=== PATIENT | female | born 1955 | race Caucasian/White ===

== ENCOUNTER → 2019-10-05 | Outpatient (CLI) | payer BC ==
--- NOTE | 2019-10-05 10:52 | ECHOF ---
Referral Reason:Coronary arteriosclerosis MEASUREMENTS -------- HEIGHT: 162.6 cm WEIGHT: 61.2 kg BP: RVIDd: 2.8 cm (< 3.3) IVSd: 1.3 cm (0.6 - 1.1) LVIDd: 4.1 cm (3.9 - 5.3) LVPWd: 1.5 cm (0.6 - 1.1) IVSs: 1.9 cm LVIDs: 3.0 cm LVPWs: 1.7 cm LAESV Index (A-L): 40.87 ml/m Ao Diam: 2.8 cm (2.0 - 3.7) AV Cusp: 1.5 cm (1.5 - 2.6) LA Diam: 4.0 cm (2.7 - 3.8) MV EXCURSION: 11.532 mm (> 18.000) MV EF SLOPE: 84 mm/s (70 - 150) EPSS: 0.3 cm MV E Messi: 0.75 m/s MV DecT: 163 ms MV A Messi: 0.85 m/s MV E/A Ratio: 0.89 RAP: 5.00 mmHg RVSP: 35.98 mmHg FINDINGS -------- Sinus rhythm with extra systolic beats. This was a technically adequate study. The left ventricular size is normal. There is moderate concentric left ventricular hypertrophy. O verall left ventricular systolic function is normal with, an EF between 55 - 60 %. Increased Lap Gr art II Diastolic Dysfunction. Septal wall motion is delayed and consistent with prior cardiac surge ry. The right ventricle is normal in size. LA is moderately dilated 34-39 ml/m2 The right atrium is mildly enlarged. Interatrial and interventricular septum intact. The aortic valve is trileaflet and appears structurally normal. There is no evidence of aortic regu rgitation. There is no evidence of aortic stenosis. Gaxy-co-unqcecyh mitral regurgitation is present. Mild tricuspid regurgitation present. There is mild pulmonary hypertension. The right ventricular systolic pressure, as measured by Doppler, is 35.98mmHg. There is no pulmonic regurgitation present. There is no pericardial effusion. CONCLUSIONS -------- 1. Sinus rhythm with extra systolic beats. 2. This was a technically adequate study. 3. The left ventricular size is normal. 4. There is moderate concentric left ventricular hypertrophy. 5. Overall left ventricular systolic function is normal with, an EF between 55 - 60 %. 6. Increased Lap Grade II Diastolic Dysfunction. 7. Septal wall motion is delayed and consistent with prior cardiac surgery. 8. The right ventricle is normal in size. 9. LA is moderately dilated 34-39 ml/m2 10. The right atrium is mildly enlarged. 11. Interatrial and interventricular septum intact. 12. The aortic valve is trileaflet and appears structurally normal. 13. There is no evidence of aortic regurgitation. 14. There is no evidence of aortic stenosis. 15. Ppfj-le-ouytjjxb mitral regurgitation is present. 16. Mild tricuspid regurgitation present. 17. There is mild pulmonary hypertension. 18. The right ventricular systolic pressure, as measured by Doppler, is 35.98mmHg. 19. There is no pulmonic regurgitation present. 20. There is no pericardial effusion. SECURITY SYSTEM INSTALLER: Angie Ruiz RDCS
== END | disposition home or self-care (01) ==
LOC: RADECHMAIN 08:00
PROVIDERS: ATTEND Internal Medicine
DX: I08.1 Rheumatic disorders of both mitral and tricuspid valves (principal); I27.20 Pulmonary hypertension, unspecified; I25.10 Atherosclerotic heart disease of native coronary artery without angina pectoris
CPT/HCPCS: 93306

== ENCOUNTER → 2019-10-29 | Outpatient (CLI) | payer BC ==
--- NOTE | 2019-10-29 08:58 | CT ---
EXAMINATION TYPE: CT chest w con DATE OF EXAM: 10/29/2019 COMPARISON: Chest x-ray October 14, 2019 HISTORY: Cough and congestion. Abnormal chest x-ray. CT DLP: 184 mGycm. Automated Exposure Control for Dose Reduction was Utilized. TECHNIQUE: CT scan of the thorax is performed following with IV Contrast, patient injected with 100 mL of Isovue 300. FINDINGS: LUNGS: Correlating with recent x-ray there are multiple scattered bilateral nodules and masses most p rominent involving the upper lungs. For reference to adjacent 7 mm nodules right upper lobe axial estephania ges 14 and 15 are present. There is additional 10 mm superior right lower lobe nodule axial image 29. There are slightly larger lesions in the left upper lung. 4) 2.2 x 1.6 cm medial left upper lobe nod ule axial image 19. There is elongated oval-shaped lower dense lesion along the major fissure could r eflect trapped fluid or low dense mass There is some linear scarring left lung base. No pneumothorax bilaterally. There is mass effect and narrowing of left upper lobe bronchus coronal image 46 MEDIASTINUM: There are abnormal lymph nodes. There is abnormal subcarinal 3.1 x 2.1 cm lymph node axi al image 29. There is abnormal heterogeneous partially calcified prevascular mass or adenopathy axial image 22 measuring 4.9 x 3.3 cm. There are abnormal left hilar lymph nodes causing mass effect or na rrowing of the right central pulmonary arteries. No cardiomegaly or pericardial effusion is seen. Po st-CABG changes with mediastinal clips and sternal wires. OTHER: Slight scoliotic curvature with mild multilevel spurring. Suspicious 2.1 x 1.4 cm left adrenal anterior inferior mass axial image 58. Colonic interposition anterior to liver. Liver low density carroll ggesting fatty infiltration. IMPRESSION: Scattered bilateral upper lung nodules with abnormal thoracic adenopathy. High-grade/meta static neoplasm is suspected. Clinical correlation advised. Consider PET CT follow-up.
== END | disposition home or self-care (01) ==
LOC: RADCTMAIN 08:19
PROVIDERS: ATTEND Internal Medicine
DX: R91.8 Other nonspecific abnormal finding of lung field (principal); R59.9 Enlarged lymph nodes, unspecified
CPT/HCPCS: 71260; Q9967

== ENCOUNTER → 2019-11-05 | Outpatient (CLI) | payer BC ==
--- NOTE | 2019-11-07 09:33 | PE ---
EXAMINATION TYPE: PET CT fusion skull to thigh DATE OF EXAM: 11/05/2019 COMPARISON: Chest CT October 29, 2019 HISTORY: Abdominal CT, solitary pulmonary nodule. TECHNIQUE: Following the intravenous administration of 8.62 mCi of F-18 FDG, whole body images are p erformed from the skull base to the midthigh. Images are reviewed on the computer in the coronal, ax ial, and sagittal planes. Reconstructed rotating images are created on independent workstation and r eviewed on the computer. A noncontrast CT is performed in conjunction with the PET scan. SCAN: Initial Scan FINDINGS: SKULL BASE AND NECK: No areas of suspicious hypermetabolic uptake. CHEST, MEDIASTINUM, AND HILAR REGION: Correlating with recent CT there are scattered hypermetabolic n odule bilaterally. Persistent spiculated 2.2 x 1.5 cm posterior left upper lobe nodule axial image 65 has a max SUV of 9.76. There is hypermetabolic 9 mm superior left lower lobe nodule axial image 80 w ith max SUV of 3.49. The largest hypodense area along fissure left mid lung shows no suspicious hyper metabolic uptake. There is hypermetabolic 10 mm superior right lower lobe nodule axial image 73 with max SUV of 3.49. Abnormal thoracic adenopathy is present. There is hypermetabolic enlarged subcarinal lymph node measu ring 3.5 x 1.9 cm axial image 80 with max SUV of 9.91. Abnormal posterior left suprahilar adenopathy axial image 76 has Max SUV of 8.22. Abnormal pericarinal lymph node measures 1.5 x 1.3 cm axial image 72 with max SUV of 4.63. Confluent abnormal partially calcified prevascular mass axial image 69 joann ures roughly 4.5 x 3.9 cm with Max SUV of 10.62. ABDOMEN AND PELVIS: Abnormal hypermetabolic anterior-inferior left adrenal mass measuring 1.9 x 1.4 c m axial image 122 with max SUV of 10.28. OSSEOUS STRUCTURES: No suspicious hypermetabolic uptake. OTHER CT: Post CABG changes with mediastinal clips and sternal wires is present. Moderate to severe calcified plaque of the aorta extends into branch vessels. Scattered diverticula t hroughout the left and sigmoid colon. Scattered pelvic phleboliths. Exaggerated kyphosis cervical thoracic spine. IMPRESSION: Confirmation of abnormal nodules more numerous in left lung versus right lung with abnorm al thoracic adenopathy and left adrenal involvement. High-grade primary lung neoplasm is favored.
== END ==
LOC: RADPETMAIN 08:33
PROVIDERS: ATTEND Internal Medicine
DX: R91.8 Other nonspecific abnormal finding of lung field (principal); R59.0 Localized enlarged lymph nodes
CPT/HCPCS: 78815; A9552

== ENCOUNTER 2019-11-11 09:44 | Day surgery (SDC) | payer BC ==
[2019-11-10 14:13] VITALS: BMI 24.3
[~2019-11-11 09:44] MED LIST: ALBUTEROL NEB (CONC) 2.5 MG/0.5 ML INHALATION ONE; DEXAMETHASONE SOD PHOSPHATE 10 MG/ML 1 ML VIAL IV ONE; HYDROmorphone 0.5 MG/0.5 ML SYRINGE IVP PRN; LACTATED RINGERS 1,000 ML IV SCH; LIDOCAINE 2% (PF) 20 MG/ML 5 ML VIAL INHALATION ONE; LIDOCAINE VISCOUS 300 MG/15 ML CUP MUCOUS MEM ONE; MIDAZOLAM 2 MG/2 ML VIAL IV PRN; ONDANSETRON 4 MG/2 ML VIAL IVP ONE; SCOPOLAMINE 1.5MG/72HR PATCH TRANSDERM ONE; SODIUM CHLORIDE 0.9% 1,000 ML IV SCH
[2019-11-11] MEDS ORDERED: MIDAZOLAM 2 MG/2 ML VIAL IV ONE (11:15)
[2019-11-11] MEDS ORDERED: MIDAZOLAM 2 MG/2 ML VIAL ONE (12:16)
[2019-11-11] MEDS ORDERED: fentaNYL (PF) 50 MCG/ML 2 ML AMP ONE (12:16)
[2019-11-11] MEDS ORDERED: LIDOCAINE 1% INJ 10MG/ML (20 ML MDV) ONE (12:16)
[2019-11-11] MEDS ORDERED: PROPOFOL 10 MG/ML 20 ML VIAL IV ONE (12:16)
[2019-11-11] MEDS ORDERED: NEOSTIGMINE 1 MG/ML 10 ML VIAL ONE (12:16)
[2019-11-11] MEDS ORDERED: GLYCOPYRROLATE 0.2 MG/ML 2 ML VIAL ONE (12:16)
[2019-11-11] MEDS ORDERED: ROCURONIUM BROMIDE 10 MG/ML 10 ML VIAL IV ONE (12:16)
[2019-11-11 14:00] VITALS: TEMP 97.5
--- NOTE | 2019-11-11 14:25 | CT ---
EXAMINATION TYPE: CT Chest geovanna Marx Protocol DATE OF EXAM: 11/11/2019 COMPARISON: PET/CT 11/05/2019 HISTORY: Pre Procedural. CT DLP: 571 mGycm Automated exposure control for dose reduction was used. FINDINGS: Multiple pulmonary nodules are present. A 2.3 x 3.0 cm lobular nodules at the left suprahilar region. Series 8 image 21. A 1.2 cm nodules within the posterior right midlung. Multiple additional smaller nodules are present upper lung galicia within the periphery greater in number on the left than the rig ht. Thyroid within the [id number] is unremarkable. Vascular calcifications within the aorta. Large per iaortic mass which contains calcification is in the superior mediastinum adjacent to the aortic arch. Study is without contrast clear delineation between the mass in the vessel was not possible on this exam. Limited CT sections are obtained through the upper abdomen. There is dense calcification within the a susi. This may cause stenosis near the level of the superior mesenteric artery. Note is made of some coronary artery calcification. Pretracheal lymph node is enlarged at 1.4 cm transverse. IMPRESSION: LUNG MASS ADJACENT TO THE AORTIC ARCH. 2. LEFT SUPRAHILAR MASS DISCUSSED ABOVE. MULTIPLE ADDITIONAL SMALLER NODULES ARE PRESENT BILATERALLY GREATER INTO THE UPPER LUNG GALICIA AND ON THE LEFT. 3. CALCIFICATION WITHIN THE AORTA. THIS MAY BE CAUSING STENOSIS NEAR THE LEVEL OF THE SUPERIOR MESENT ANASTASIA ARTERY.
--- NOTE | 2019-11-11 14:37 | XR ---
EXAMINATION TYPE: XR chest 1V portable DATE OF EXAM: 11/11/2019 COMPARISON: 11/11/2019 CT INDICATION: Bronchial navigation TECHNIQUE: Single frontal view of the chest is obtained. FINDINGS: The heart size is normal. The pulmonary vasculature is normal. There is mild infiltrate in the left suprahilar region. Pulmonary nodules are not as well identified. No pneumothorax is evident. Sternotomy wires are in the midline. Heart size is normal. Vasculature i s normal. IMPRESSION: 1. No pneumothorax post bronchoscopy. 2. Mild left upper lobe infiltrate. 3. Multiple bilateral pulmonary nodules not as well identified as on the CT exam.
[2019-11-11 15:21] VITALS: BP 155/72; PULSE 103; RESP 16
[2019-11-11 16:51] LABS: Appearance,BF Cloudy; Color,BF Colorless; Nucleated Cells, Body Fluid 255 /uL; RBC, Body Fluid 0 /uL
[2019-11-11 17:15] LABS: Mononuclear WBC,Body Fluid 90 %; Polynuclear WBC,Body Fluid 10 %; Total Cells Counted,Body Fluid 100
--- NOTE | 2019-11-11 20:51 | PCN ---
PROCEDURE NOTE OPERATIVE REPORT: Navigational bronchoscopy, multiple Lord needle aspiration of subcarinal nodes, multiple transbronchial biopsies of two left upper lobe target lesions, bronchoalveolar lavage of the left upper lobe. PREOPERATIVE DIAGNOSES: Lung masses, possible underlying malignancy/bronchogenic carcinoma. POSTOPERATIVE DIAGNOSES: Lung masses, possible underlying malignancy/bronchogenic carcinoma. ANESTHESIA: General anesthesia done in the operating room #1. PROCEDURE: The patient had a CT of the chest using then [employer] protocol. The patient was sent to the operating room with a in place. Then, we have reviewed the CT of the chest on the [employer] system, and mapping of the airways was done. Multiple target lesions were marked including 2 left upper lobe nodules and an area of subcarinal lymph nodes. Then the patient was intubated prior to the procedure. She was placed on mechanical ventilation. After adequate anesthesia, the bronchoscope was inserted down the endotracheal tube, calibration was done. Using the navigational protocol, multiple transbronchial biopsies were done of 2 target lesions in the left upper lobe. Then, lavage of the left upper lobe was also done. Multiple Lord and needle aspirations were performed by Dr. Qureshi and in the subcarinal area and anterior subcarinal area, and these with reviewed by the pathologist. I attempted to reach the left lower lobe target lesion, however, it was not accessible. Multiple specimens were sent including Lord needle aspirates from the subcarinal nodes and anterior carinal nodes, and multiple transbronchial biopsies of two left upper lobe lesion and lavage from the left upper lobe was also sent for cytology. Procedure was well tolerated, no evidence of any immediate complication. Chest x-ray was ordered postoperatively to rule out any pneumothorax, and it was unremarkable. MMODL / IJN: [id number] /
== END 2019-11-11 15:26 | disposition home or self-care (01) ==
LOC: ORWHC2ENDO 09:44
PROVIDERS: ATTEND Internal Medicine
DX: J98.4 Other disorders of lung (principal); R59.0 Localized enlarged lymph nodes; J44.9 Chronic obstructive pulmonary disease, unspecified; I25.10 Atherosclerotic heart disease of native coronary artery without angina pectoris; I10 Essential (primary) hypertension; K21.9 Gastro-esophageal reflux disease without esophagitis; I08.1 Rheumatic disorders of both mitral and tricuspid valves; I27.20 Pulmonary hypertension, unspecified; I25.2 Old myocardial infarction; F17.210 Nicotine dependence, cigarettes, uncomplicated; Z79.899 Other long term (current) drug therapy; Z95.5 Presence of coronary angioplasty implant and graft; Z98.890 Other specified postprocedural states; Z95.1 Presence of aortocoronary bypass graft; Z82.49 Family history of ischemic heart disease and other diseases of the circulatory system; Z84.89 Family history of other specified conditions
CPT/HCPCS: 94640; 87798 ×3; 87529; 87634; 87206; 87496; 87498; 88108; 88305; 88173; 89050; 87252; 87502; 87070; 87205; 87116; 87102; 71045; 71250; 31628; 31624; 31629; 31627; J2250; J1100; J2710; J2405; J2001 ×2; J3010; J2704

== ENCOUNTER → 2019-11-28 | Day surgery (SDC) | payer BC ==
[~2019-11-28] MED LIST changes: +DEXAMETHASONE SOD PHOS (MDV) 100 MG/10 ML VIAL ONE; -DEXAMETHASONE SOD PHOSPHATE 10 MG/ML 1 ML VIAL IV ONE; +GLYCOPYRROLATE 0.2 MG/ML 2 ML VIAL ONE; -HYDROmorphone 0.5 MG/0.5 ML SYRINGE IVP PRN; +KETAMINE 10 MG/ML 20 ML VIAL ONE; +LACTATED RINGERS 1,000 ML IV ONE; -LACTATED RINGERS 1,000 ML IV SCH; +LIDOCAINE 1% 20 ML VIAL (10MG/ML) FOR IV START INTRADERMA ONE; +LIDOCAINE 1% INJ 10MG/ML (20 ML MDV) ONE; +METOPROLOL TARTRATE 5 MG/5 ML VIAL IVP ONE; -MIDAZOLAM 2 MG/2 ML VIAL IV PRN; +MIDAZOLAM 2 MG/2 ML VIAL IVP ONE; +MIDAZOLAM 2 MG/2 ML VIAL ONE; -ONDANSETRON 4 MG/2 ML VIAL IVP ONE; +PHENYLEPHRINE-0.9% NACL SYG 1 MG/10 ML SYRINGE ONE; +PROPOFOL 10 MG/ML 20 ML VIAL IV ONE; -SCOPOLAMINE 1.5MG/72HR PATCH TRANSDERM ONE; +SUCCINYLCHOLINE CHLORIDE 100 MG/5 ML SYR IV ONE; +fentaNYL (PF) 50 MCG/ML 2 ML AMP ONE
--- NOTE | 2019-11-28 13:06 | CT ---
EXAMINATION TYPE: CT Chest geovanna Marx Protocol DATE OF EXAM: 11/28/2019 COMPARISON: PET/CT [address] October 29, 2019. PET/CT November 05, 2019 HISTORY: Navigational Bronch CT DLP: 559 mGycm Automated exposure control for dose reduction was used. FINDINGS: CT of the chest is performed without contrast. Exam is for bronchoscopy planning and not for diagnost ic purposes. Scattered nodules throughout both lungs greater in the upper lungs is redemonstrated. Po st-CABG changes with1 mediastinal clips and sternal wires again seen. Partially calcified prevascular mass extending into left hilum again seen. Diffuse fatty infiltration of liver incidentally noted. IMPRESSION: As above.
[2019-11-28 14:42] VITALS: RESP 18; TEMP 97.4
--- NOTE | 2019-11-28 15:11 | XR ---
EXAMINATION TYPE: XR chest 1V portable DATE OF EXAM: 11/28/2019 COMPARISON: Chest x-ray November 11, 2009. CT earlier today and older CTs and PET CTs. HISTORY: Post bronchoscopy TECHNIQUE: Single frontal view of the chest is obtained. FINDINGS: There is mild chronic emphysematous change with scattered bilateral nodules. Overlying ronit rnal wires and mediastinal clips redemonstrated. The cardiac silhouette size remains enlarged. No pne umothorax noted bilaterally. Left suprahilar mass or neoplasm redemonstrated. The osseous structures remain demineralized. IMPRESSION: No pneumothorax after bronchoscopy.
[2019-11-28 16:01] VITALS: BP 177/83; PULSE 87
--- NOTE | 2019-12-05 14:20 | P.PCN ---
Date of Procedure: 11/28/19 Preoperative Diagnosis: Bilateral lung masses with a large left upper lobe mass and scattered bilateral pulmonary nodules and mediastinal lymphadenopathy Postoperative Diagnosis: Same Procedure(s) Performed: Navigational bronchoscopy, transbronchial needle aspirate of the paratracheal and subcarinal lymph nodes, transbronchial biopsy of the left upper lobe mass, transbronchial brushing of the left upper lobe mass Anesthesia: KATHLEENA Surgeon: Abdoulaye Qureshi Medical Practice Administrator #1: Melissa Smith Estimated Blood Loss (ml): 0 Pathology: other Condition: stable Disposition: same day Operative Findings: This is a navigation bronchoscopy that was done in the operating room. The patient had a computed tomography scan of the chest using the [employer] protocol. All of these images uploaded into the computer system with the left upper lobe mass and the scattered pulmonary nodules in the mediastinal lymph nodes were all identified. The target lesions were met specifically the right paratracheal and subcarinal lymph node in addition to the left upper lobe mass. All of these mapping was uploaded into the navigational tower The patient was brought into the operating room where conscious sedation was applied and under conscious sedation and airway inspection was done. The visualized airways and posterior oropharynx, larynx, epiglottis, arytenoids and the vocal cords. All of the structures were within normal limits. A total of 2 mL of 1% lidocaine was applied to the vocal cords and following that the bronchoscope was advanced to the upper trachea. Examination of the tracheal bronchial tree was done. Visualized airways included the right upper lobe bronc hus, right middle lobe bronchus, right lower lobe bronchus, left upper lobe bronchus and left lower lobe bronchus. All of the airways were patent. At the level of the left upper lobe bronchus, the apical posterior subsegment was compressed extrinsically. No endobronchial tumors or lesions identified. The appropriate calibration was done using the primary josé miguel and the secondary josé miguel on the left as reference points. Following that, used a navigational 19- gauge needle to sample the right paratracheal lymph node with 2 passes were obtained. I also performed a transbronchial aspiration of the subcarinal lymph nodes. Both of those were done on the navigational guidance. Following that, the patient was intubated by anesthesia. After the intubation process was completed, the flexible bronchoscope was reinserted andand directed to the left upper lobe. Using navigational guidance, transbronchial biopsies of the left upper lobe mass was done using the apical posterior segment of the left upper lobe. Several biopsies were obtained. I also utilizes a triple brush to biopsy the left upper lobe mass. The samples were found to be adequate. The bronchoscope was removed. Subsequently the patient was extubated and transferred to recovery. Chest x-ray will be done. Further recommended a surgical follow based on the results of the biopsy. The procedure was done without any complications.
== END ==
LOC: ORWHC2ENDO 10:46
PROVIDERS: ATTEND Internal Medicine Critical Care Medicine
DX: C7A.1 Malignant poorly differentiated neuroendocrine tumors (principal); R59.0 Localized enlarged lymph nodes; J44.9 Chronic obstructive pulmonary disease, unspecified; I25.2 Old myocardial infarction; F17.210 Nicotine dependence, cigarettes, uncomplicated; Z79.899 Other long term (current) drug therapy; Z95.1 Presence of aortocoronary bypass graft; Z95.5 Presence of coronary angioplasty implant and graft
CPT/HCPCS: 31628; 88104; 88305; 88173; 88342; 88341; 71045; 71250; 31629; 31623; 31627; J2250; J2001; J3010; J1100; J2370; J0330; J2704; 31625

== ENCOUNTER → 2019-12-07 | Outpatient (CLI) | payer BC ==
--- NOTE | 2019-12-07 13:56 | MR ---
"EXAMINATION TYPE: MR brain wo/w con DATE OF EXAM: 12/07/2019 1:38 PM COMPARISON: NONE HISTORY: LUng Cancer / Headaches CONTRAST: Patient received 6 mL intravenous Gadavist gadolinium contrast. Multiplanar and multispin-echo imaging of the brain was performed . Pre and post contrast enhanced i mages are obtained. Several ring-enhancing lesions are identified. Dominant ring-enhancing lesion is seen within the righ t midbrain extending into the right infra thalamic region measuring 1.4 x 1.3 x 1.3 cm. There is mild mass effect upon the third ventricle from right to left. No significant surrounding edema at this ti me. There are several additional tiny ring-enhancing lesions with 2 tiny adjacent lesions measuring a total of 7 mm within the left centrum semioval anteriorly. There is a 5 mm lesion noted within the j uxtacortical high left frontal lobe. Suspect additional tiny 4 mm lesion left cerebellar hemisphere s uperiorly. The ventricles, basal cisterns and sulci overlying the cerebral convexities are mildly enlarged. There is evidence of mild to moderate periventricular white matter ischemic demyelination. Remote deep white matter insults are also noted. No acute edema is seen on diffusion weighted imaging. There is no evidence for midline shift or mass effect. Acute intracranial hemorrhage or extra-axial collection is not evident. The paranasal sinuses and mastoid air cells are well-aerated. IMPRESSION: 1. 5 enhancing metastatic lesions as described above. No evidence for a significant surrounding vasog enic edema. Mild mass effect upon the third ventricle from right to left. No herniation seen. 2. Age-related atrophic and chronic small vessel ischemic change. A Yellow level critical message alert has been initiated for Alexandre Portillo MD via the [employer] | Critical Results System on 12/07/2019 1:53 PM. This message alert has been sent to Alexandre Portillo MD via the preferences provided by the clinician for the receipt of Radiology Critical Findings. Mess age ID [id number]."
== END | disposition home or self-care (01) ==
LOC: RADMRIMAIN 12:48
PROVIDERS: ATTEND Internal Medicine Hematology & Oncology
DX: C79.31 Secondary malignant neoplasm of brain (principal); C34.90 Malignant neoplasm of unspecified part of unspecified bronchus or lung; I67.82 Cerebral ischemia; G31.9 Degenerative disease of nervous system, unspecified
CPT/HCPCS: 70553; A9585

== ENCOUNTER 2019-12-14 14:57 | Emergency (ER) | payer BC ==
[2019-12-14 15:11] VITALS: TEMP 98.2
[2019-12-14 15:41] VITALS: RESP 16
--- NOTE | 2019-12-14 15:59 | XR ---
EXAMINATION TYPE: XR chest 2V DATE OF EXAM: 12/14/2019 COMPARISON: Prior chest x-ray dated 11/28/2019 HISTORY: Dysrhythmia, lung cancer TECHNIQUE: Frontal and lateral views of the chest are obtained on 3 images. FINDINGS: Prominent lung lines suggest underlying COPD. Patient is post median sternotomy. Multiple nodular densities are present within the left greater than right upper lobe as on prior exam. Heart r emains enlarged. There are overlying cardiac leads. No evident pneumothorax or pleural effusion. Larg e aorticopulmonary node is present. IMPRESSION: Findings compatible with patient's history of lung carcinoma. Cardiomegaly. Postop kojo hawkins.
[2019-12-14 16:04] LABS: Basophils # (A) 0.2 k/uL (0-0.2); Basophils % (A) 2 %; Eosinophils # (A) 0.1 k/uL (0-0.7); Eosinophils % (A) 1 %; HGB 15.7 gm/dL (11.4-16.0); Lymphocytes # (A) 0.7 k/uL (1.0-4.8); Lymphocytes % (A) 8 %; MCH 32.3 pg (25.0-35.0); MCHC 32.7 g/dL (31.0-37.0); MCV 98.7 fL (80.0-100.0); Mean Platelet Volume 8.2; Monocytes # (A) 0.3 k/uL (0-1.0); Monocytes % (A) 4 %; Neutrophils # (A) 7.7 k/uL (1.3-7.7); Neutrophils % (A) 84 %; Platelet Count 224 k/uL (150-450); RBC 4.87 m/uL (3.80-5.40); RDW 12.2 % (11.5-15.5); WBC 9.1 k/uL (3.8-10.6)
--- NOTE | 2019-12-14 16:06 | ED ---
General Adult HPI - General Chief complaint: Arrhythmia/Palpitations Stated complaint: Swollen legs Time Seen by Provider: 12/14/19 15:14 Source: patient, RN notes reviewed, old records reviewed Mode of arrival: wheelchair Limitations: no limitations - History of Present Illness Initial comments: 64-year-old female with metastatic lung cancer presenting from the radiation center for evaluation of lower extremity swelling and arrhythmia. Patient was n oted to have an irregular heartbeat and sent in for evaluation. She states she's had lower extremity swelling for the past several days. She is on radiation for multiple brain lesions. She is scheduled to start chemotherapy within the next week. She denies chest pain or dyspnea. She states she has bilateral leg swelling. She denies abdominal pain, denies nausea vomiting. She really has no complaints. - Related Data Home Medications Medication Instructions Recorded Confirmed Albuterol Sulfate [Proair Hfa] 1 - 2 puff INHALATION Q6HR PRN 11/10/19 12/14/19 Aspirin 81 mg PO DAILY 12/14/19 12/14/19 Dexamethasone [Decadron] 4 mg PO DAILY 12/14/19 12/14/19 Omeprazole 20 mg PO DAILY 12/14/19 12/14/19 amLODIPine BESYLATE 5 mg PO DAILY 12/14/19 12/14/19 Previous Rx's Medication Instructions Recorded Furosemide [Lasix] 20 mg PO DAILY #3 tab 12/14/19 Allergies Allergy/AdvReac Type Severity Reaction Status Date / Time No Known Allergies Allergy Verified 12/14/19 15:11 Review of Systems ROS Statement: Those systems with pertinent positive or pertinent negative responses have been documented in the HPI. ROS Other: All systems not noted in ROS Statement are negative. Past Medical History Past Medical History: COPD Additional Past Medical History / Comment(s): lost voice in April 2019 with continuing cough History of Any Multi-Drug Resistant Organisms: None Reported Past Surgical History: Coronary Bypass/CABG, Heart Catheterization With Stent, Orthopedic Surgery Additional Past Surgical History / Comment(s): cabg 04/2004, carpal tunnel ana,hip surgery repair nerve , rt rotator cuff repair Past Anesthesia/Blood Transfusion Reactions: No Reported Reaction, Family History of Problems w/ Anesthesia Additional Past Anesthesia/Blood Transfusion Reaction / Comment(s): mother takes long time to come out of anesthesia Date of Last Stent Placement:: 08/05 Past Psychological History: No Psychological Hx Reported Smoking Status: Current every day smoker Past Alcohol Use History: Daily Past Drug Use History: None Reported - Past Family History Mother Family Medical History: No Reported History General Exam Limitations: no limitations General appearance: alert, cachectic Head exam: Present: atraumatic, normocephalic Eye exam: Present: normal appearance, PERRL ENT exam: Present: normal exam Neck exam: Present: normal inspection. Absent: tenderness, meningismus Respiratory exam: Present: normal lung sounds bilaterally. Absent: respiratory distress, wheezes Cardiovascular Exam: Present: regular rate, normal rhythm GI/Abdominal exam: Present: soft. Absent: distended, tenderness, guarding Extremities exam: Present: pedal edema. Absent: calf tenderness Back exam: Present: normal inspection Neurological exam: Present: alert, oriented X3, CN II-XII intact. Absent: motor sensory deficit Psychiatric exam: Present: normal affect, normal mood Skin exam: Present: warm, dry, intact, erythema. Absent: cyanosis, diaphoretic Course Vital Signs 12/14/19 12/14/19 15:07 15:34 Temperature 98.2 F Pulse Rate 91 76 Respiratory 20 16 Rate Blood Pressure 165/74 132/78 O2 Sat by Pulse 99 99 Oximetry EKG Findings - EKG Comments: EKG Findings:: EKG: Sinus rhythm with PACs, rate of 89, NV interval 138, QRS duration 84, QTC 503, no ST segment elevation Medical Decision Making - Medical Decision Making 64-year-old female presenting for evaluation of palpitations, and lower extrem ity edema. Active metastatic lung cancer. Chest x-ray performed, shows findings consistent with carcinoma and cardiomegaly. She has a EKG showing sinus rhythm with sinus arrhythmia. Ultrasound performed of bilateral lower extremities which is negative for DVT. She has a mildly elevated BNP at 2400. Normal electrolytes. Negative troponin. Patient very eager for discharge, she does not want to stay under any circumstances. She will follow-up with her primary care physician. She is prescribed a short course of Lasix for bilateral lower extremity swelling. - Lab Data Result diagrams: 12/14/19 15:40 12/14/19 15:40 Lab Results 12/14/19 12/14/19 12/14/19 Range/Units 15:40 15:40 15:40 WBC 9.1 (3.8-10.6) k/uL RBC 4.87 (3.80-5.40) m/uL Hgb 15.7 (11.4-16.0) gm/dL Hct 48.0 H (34.0-46.0) % MCV 98.7 (80.0-100.0) fL MCH 32.3 (25.0-35.0) pg MCHC 32.7 (31.0-37.0) g/dL RDW 12.2 (11.5-15.5) % Plt Count 224 (150-450) k/uL Neutrophils % 84 % Lymphocytes % 8 % Monocytes % 4 % Eosinophils % 1 % Basophils % 2 % Neutrophils # 7.7 (1.3-7.7) k/uL Lymphocytes # 0.7 L (1.0-4.8) k/uL Monocytes # 0.3 (0-1.0) k/uL Eosinophils # 0.1 (0-0.7) k/uL Basophils # 0.2 (0-0.2) k/uL PT (9.0-12.0) sec INR (<1.2) APTT (22.0-30.0) sec Sodium 134 L (137-145) mmol/L Potassium 5.3 H (3.5-5.1) mmol/L Chloride 98 (98-107) mmol/L Carbon Dioxide 30 (22-30) mmol/L Anion Gap 6 mmol/L BUN 14 (7-17) mg/dL Creatinine 0.69 (0.52-1.04) mg/dL Est GFR (CKD-EPI)AfAm >90 (>60 ml/min/1.73 sqM) Est GFR (CKD-EPI)NonAf >90 (>60 ml/min/1.73 sqM) Glucose 123 H (74-99) mg/dL Calcium 8.9 (8.4-10.2) mg/dL Magnesium 2.2 (1.6-2.3) mg/dL Total Bilirubin 0.7 (0.2-1.3) mg/dL AST 100 H (14-36) U/L ALT 95 H (4-34) U/L Alkaline Phosphatase 90 (38-126) U/L Troponin I (0.000-0.034) ng/mL NT-Pro-B Natriuret Pep 2440 pg/mL Total Protein 7.1 (6.3-8.2) g/dL Albumin 4.0 (3.5-5.0) g/dL 12/14/19 12/14/19 Range/Units 15:40 15:40 WBC (3.8-10.6) k/uL RBC (3.80-5.40) m/uL Hgb (11.4-16.0) gm/dL Hct (34.0-46.0) % MCV (80.0-100.0) fL MCH (25.0-35.0) pg MCHC (31.0-37.0) g/dL RDW (11.5-15.5) % Plt Count (150-450) k/uL Neutrophils % % Lymphocytes % % Monocytes % % Eosinophils % % Basophils % % Neutrophils # (1.3-7.7) k/uL Lymphocytes # (1.0-4.8) k/uL Monocytes # (0-1.0) k/uL Eosinophils # (0-0.7) k/uL Basophils # (0-0.2) k/uL PT 9.9 (9.0-12.0) sec INR 1.0 (<1.2) APTT 21.5 L (22.0-30.0) sec Sodium (137-145) mmol/L Potassium (3.5-5.1) mmol/L Chloride (98-107) mmol/L Carbon Dioxide (22-30) mmol/L Anion Gap mmol/L BUN (7-17) mg/dL Creatinine (0.52-1.04) mg/dL Est GFR (CKD-EPI)AfAm (>60 ml/min/1.73 sqM) Est GFR (CKD-EPI)NonAf (>60 ml/min/1.73 sqM) Glucose (74-99) mg/dL Calcium (8.4-10.2) mg/dL Magnesium (1.6-2.3) mg/dL Total Bilirubin (0.2-1.3) mg/dL AST (14-36) U/L ALT (4-34) U/L Alkaline Phosphatase (38-126) U/L Troponin I <0.012 (0.000-0.034) ng/mL NT-Pro-B Natriuret Pep pg/mL Total Protein (6.3-8.2) g/dL Albumin (3.5-5.0) g/dL Disposition Clinical Impression: Cavitating mass in left upper lung lobe, Palpitations, Peripheral edema Disposition: HOME SELF-CARE Condition: Fair Instructions (If sedation given, give patient instructions): Heart Palpitations (ED) Prescriptions: Furosemide [Lasix] 20 mg PO DAILY #3 tab Is patient prescribed a controlled substance at d/c from ED?: No Referrals: Paul Guo DO [Primary Care Provider] - 1-2 days Time of Disposition: 17:03
[2019-12-14 16:14] LABS: ALT 95 U/L (4-34); AST 100 U/L (14-36); African American GFR (CKD) >90 (>60 ml/min/1.73 sqM); Alkaline Phosphatase 90 U/L (38-126); Anion Gap 6 mmol/L; Blood Urea Nitrogen 14 mg/dL (7-17); Calcium 8.9 mg/dL (8.4-10.2); Carbon Dioxide 30 mmol/L (22-30); Chloride 98 mmol/L (98-107); Glucose 123 mg/dL (74-99); Magnesium 2.2 mg/dL (1.6-2.3); Non-African American GFR(CKD) >90 (>60 ml/min/1.73 sqM); Potassium 5.3 mmol/L (3.5-5.1); Sodium 134 mmol/L (137-145); Total Bilirubin 0.7 mg/dL (0.2-1.3); Total Protein 7.1 g/dL (6.3-8.2)
[2019-12-14 16:20] LABS: Prothrombin Time 9.9 sec (9.0-12.0)
[2019-12-14 16:23] LABS: Partial Thromboplastin Time 21.5 sec (22.0-30.0)
--- NOTE | 2019-12-14 16:56 | US ---
EXAMINATION TYPE: US venous doppler duplex LE DATE OF EXAM: 12/14/2019 4:46 PM COMPARISON: NONE CLINICAL HISTORY: DVT. Edema bilateral legs, worse on the right SIDE PERFORMED: bilateral TECHNIQUE: The lower extremity deep venous system is examined utilizing real time linear array sonog gavin with graded compression, doppler sonography and color-flow sonography. VESSELS IMAGED: External Iliac Vein (EIV) Common Femoral Vein Deep Femoral Vein Greater Saphenous Vein * Femoral Vein Popliteal Vein Small Saphenous Vein * Proximal Calf Veins (* superficial vessels) Right Leg: No evidence of DVT Left Leg: No evidence of DVT IMPRESSION: 1. Bilateral lower extremity ultrasound negative for deep venous thrombosis.
[2019-12-14] MEDS ORDERED: FUROSEMIDE 10 MG/ML 2 ML VIAL IV STA (17:01)
[2019-12-14 17:37] VITALS: BP 136/76; PULSE 86
== END 2019-12-14 17:35 | disposition home or self-care (01) ==
LOC: EC 14:57
DX: C34.90 Malignant neoplasm of unspecified part of unspecified bronchus or lung (principal); R00.2 Palpitations; R60.0 Localized edema; I51.7 Cardiomegaly; I49.8 Other specified cardiac arrhythmias; R79.89 Other specified abnormal findings of blood chemistry; L53.9 Erythematous condition, unspecified; J44.9 Chronic obstructive pulmonary disease, unspecified; F17.200 Nicotine dependence, unspecified, uncomplicated; Z79.82 Long term (current) use of aspirin; Z79.899 Other long term (current) drug therapy; Z95.1 Presence of aortocoronary bypass graft; Z95.5 Presence of coronary angioplasty implant and graft
CPT/HCPCS: 36415; 93005; 83880; 80053; 83735; 84484; 85025; 85610; 85730; 71046; 93970; 99285; 96374; J1940

== ENCOUNTER 2019-12-16 06:36 | Day surgery (SDC) | payer BC ==
[2019-12-14 11:26] VITALS: BMI 22.3
[~2019-12-16 06:36] MED LIST changes: -ALBUTEROL NEB (CONC) 2.5 MG/0.5 ML INHALATION ONE; -DEXAMETHASONE SOD PHOS (MDV) 100 MG/10 ML VIAL ONE; -GLYCOPYRROLATE 0.2 MG/ML 2 ML VIAL ONE; +HEPARIN SODIUM,PORCINE 5,000 UNIT/ML 1 ML VIAL SQ ONE; +HYDROmorphone 0.5 MG/0.5 ML SYRINGE IVP PRN; -KETAMINE 10 MG/ML 20 ML VIAL ONE; -LACTATED RINGERS 1,000 ML IV ONE; +LACTATED RINGERS 1,000 ML IV SCH; -LIDOCAINE 1% 20 ML VIAL (10MG/ML) FOR IV START INTRADERMA ONE; +LIDOCAINE 1% 20 ML VIAL (10MG/ML) FOR IV START INTRADERMA PRN; -LIDOCAINE 1% INJ 10MG/ML (20 ML MDV) ONE; -LIDOCAINE 2% (PF) 20 MG/ML 5 ML VIAL INHALATION ONE; -LIDOCAINE VISCOUS 300 MG/15 ML CUP MUCOUS MEM ONE; -METOPROLOL TARTRATE 5 MG/5 ML VIAL IVP ONE; -MIDAZOLAM 2 MG/2 ML VIAL IVP ONE; -MIDAZOLAM 2 MG/2 ML VIAL ONE; -PHENYLEPHRINE-0.9% NACL SYG 1 MG/10 ML SYRINGE ONE; -PROPOFOL 10 MG/ML 20 ML VIAL IV ONE; +Pre Op ABX Message 1 EACH MISC MISCELLANE ONE; -SODIUM CHLORIDE 0.9% 1,000 ML IV SCH; -SUCCINYLCHOLINE CHLORIDE 100 MG/5 ML SYR IV ONE; -fentaNYL (PF) 50 MCG/ML 2 ML AMP ONE
[2019-12-16 06:57] VITALS: TEMP 98.2
[2019-12-16 07:08] LABS: Glucose,Whole Blood 87 mg/dL (75-99)
[2019-12-16] MEDS ORDERED: ONDANSETRON 4 MG/2 ML VIAL IVP ONE (07:13)
[2019-12-16] MEDS ORDERED: DEXAMETHASONE SOD PHOS (MDV) 100 MG/10 ML VIAL IV ONE (07:14)
[2019-12-16] MEDS ORDERED: MIDAZOLAM 2 MG/2 ML VIAL IV ONE (07:18)
--- NOTE | 2019-12-16 07:44 | P.GSHP ---
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 Here today for Port-A-Cath placement. Starting chemotherapy quite soon. Past Medical History Past Medical History: COPD Additional Past Medical History / Comment(s): lost voice in April 2019 with continuing cough History of Any Multi-Drug Resistant Organisms: None Reported Past Surgical History: Coronary Bypass/CABG, Heart Catheterization With Stent, Orthopedic Surgery Additional Past Surgical History / Comment(s): cabg 04/2004, carpal tunnel ana,hip surgery repair nerve , rt rotator cuff repair Past Anesthesia/Blood Transfusion Reactions: No Reported Reaction, Family History of Problems w/ Anesthesia Additional Past Anesthesia/Blood Transfusion Reaction / Comment(s): mother takes long time to come out of anesthesia Date of Last Stent Placement:: 08/05 Past Psychological History: No Psychological Hx Reported Smoking Status: Current every day smoker Past Alcohol Use History: Daily Past Drug Use History: None Reported - Past Family History Mother Family Medical History: No Reported History Medications and Allergies Home Medications Medication Instructions Recorded Confirmed Type Albuterol Sulfate [Proair Hfa] 1 - 2 puff INHALATION Q6HR PRN 11/10/19 12/14/19 History Aspirin 81 mg PO DAILY 12/14/19 12/14/19 History Dexamethasone [Decadron] 4 mg PO DAILY 12/14/19 12/14/19 History Furosemide [Lasix] 20 mg PO DAILY #3 tab 12/14/19 Rx Omeprazole 20 mg PO DAILY 12/14/19 12/14/19 History amLODIPine BESYLATE 5 mg PO DAILY 12/14/19 12/14/19 History Allergies Allergy/AdvReac Type Severity Reaction Status Date / Time No Known Allergies Allergy Verified 12/16/19 07:07 Surgical - Exam Vital Signs Temp Pulse Resp BP Pulse Ox 98.2 F 70 16 202/93 100 12/16/19 06:55 12/16/19 06:55 12/16/19 06:55 12/16/19 06:55 12/16/19 06:55 Physical exam: General: Well-developed, well-nourished HEENT: Normocephalic, sclerae nonicteric Abdomen: Nontender, nondistended Extremities: No edema Neuro: Alert and oriented Assessment and Plan (1) Lung cancer Narrative/Plan: Will proceed with Port-A-Cath placement at this time. Risks of bleeding, infection, DVT, pneumothorax, catheter malfunction, anesthesia related complications were discussed. The patient understands and wishes to proceed. Current Visit: Yes Status: Acute Code(s): C34.90 - MALIGNANT NEOPLASM OF UNSP PART OF UNSP BRONCHUS OR LUNG SNOMED Code(s): 087736737
[2019-12-16] MEDS ORDERED: MIDAZOLAM 2 MG/2 ML VIAL ONE (07:47)
[2019-12-16] MEDS ORDERED: PROPOFOL 10 MG/ML 20 ML VIAL IV ONE (07:47)
[2019-12-16] MEDS ORDERED: KETAMINE 10 MG/ML 20 ML VIAL ONE (07:47)
[2019-12-16] MEDS ORDERED: GLYCOPYRROLATE 0.2 MG/ML 2 ML VIAL ONE (07:47)
[2019-12-16] MEDS ORDERED: fentaNYL (PF) 50 MCG/ML 2 ML AMP ONE (07:47)
[2019-12-16] MEDS ORDERED: ceFAZolin 1,000 MG VIAL ONE (07:47)
[2019-12-16] MEDS ORDERED: SODIUM CHLORIDE 0.9% 100 ML with ceFAZolin 2,000 MG IV ONE ×2 (08:13)
[2019-12-16] MEDS ORDERED: LIDOCAINE 1% (PF) 10 MG/ML (30 ML SDV) SQ ONE (08:15)
[2019-12-16] MEDS ORDERED: HYDROcodone/APAP 5-325MG 1 EACH TAB PO PRN (08:43)
[2019-12-16] MEDS ORDERED: NALOXONE 0.4 MG/ML 1 ML VIAL IV PRN (08:43)
--- NOTE | 2019-12-16 08:45 | P.OP ---
Date of Procedure: 12/16/19 Procedure(s) Performed: PREOPERATIVE DIAGNOSIS: Lung cancer POSTOPERATIVE DIAGNOSIS: Same PROCEDURE: Port-A-Cath placement SURGEON: Ilsa EBL: Minimal ANESTHESIA: Sedation COMPLICATIONS: None OPERATIVE PROCEDURE: Patient was brought and placed on the operative table in the supine position. The patient was sedated per anesthesia that time. The chest and neck were prepped and draped in usual sterile fashion. The ultrasound probe was used to identify the location of the right internal jugular vein. The skin was localized with lidocaine. The Seldinger needle was advanced into the IJ under ultrasound guidance. The wire was advanced through the needle under fluoroscopic guidance into the superior vena cava. A port pocket was created in the right infraclavicular location. The catheter was tunneled from the wire entrance site to the port pocket. The port was then connected to the catheter. The dilator introducer was threaded over the guidewire. The guidewire and dilator were then removed. The catheter was advanced through the introducer and introducer was then removed. The tip was seen to be in the right atrial junction. Port was flushed with both saline and a Hep-Lock solution. There was good flow both in and out of the port. The port was sutured in underlying tissues using 3-0 silk sutures. The subcutaneous tissues were reapproximated using 3-0 Vicryl sutures and the skin at both locations using 4-0 Monocryl sutures. Skin glue and sterile dressings then applied. DISPOSITION: Stable to recovery room
--- NOTE | 2019-12-16 09:44 | XR ---
EXAMINATION TYPE: XR chest 1V portable DATE OF EXAM: 12/16/2019 COMPARISON: 12/14/2019 HISTORY: Port-A-Cath insertion. Evaluate for pneumothorax. TECHNIQUE: Single frontal view of the chest is obtained. FINDINGS: There are multiple old healed right-sided rib fractures. Port-A-Cath has been placed with its distal tip terminating in the distal superior vena cava. No postprocedural pneumothorax is seen. Post CABG changes the chest are noted. Multiple nodular densities are seen within the left lung and t o a lesser degree in the right lung in this patient with known bilateral pulmonary nodules. No new fo donis consolidation, pleural effusion or pulmonary vascular congestion. IMPRESSION: Right-sided Port-A-Cath insertion with no pars procedural pneumothorax. Known bilateral pulmonary nodules. No pulmonary vascular congestion.
--- NOTE | 2019-12-16 09:51 | FL ---
Fluoroscopy INDICATION: Pain FINDINGS: Fluoroscopy time: 48 seconds. Images obtained: 1. IMPRESSIONS: 1. Documentation of fluoroscopy.
[2019-12-16 10:14] VITALS: BP 185/93; PULSE 71; RESP 20
== END 2019-12-16 10:12 | disposition home or self-care (01) ==
LOC: OR 06:36
PROVIDERS: ATTEND Surgery
DX: C34.92 Malignant neoplasm of unspecified part of left bronchus or lung (principal); J44.9 Chronic obstructive pulmonary disease, unspecified; F17.210 Nicotine dependence, cigarettes, uncomplicated; K21.9 Gastro-esophageal reflux disease without esophagitis; Z87.09 Personal history of other diseases of the respiratory system; Z95.1 Presence of aortocoronary bypass graft; Z95.5 Presence of coronary angioplasty implant and graft; Z98.890 Other specified postprocedural states; Z86.69 Personal history of other diseases of the nervous system and sense organs; Z87.39 Personal history of other diseases of the musculoskeletal system and connective tissue; Z79.899 Other long term (current) drug therapy; Z79.82 Long term (current) use of aspirin; Z79.52 Long term (current) use of systemic steroids; Z84.89 Family history of other specified conditions
CPT/HCPCS: 77001; 71045; 36561; C1788; J2250; J2405; J0690; J2001; J3010; J1100; J2704

== ENCOUNTER → 2020-03-20 | Outpatient (CLI) | payer BC ==
--- NOTE | 2020-03-20 10:53 | CT ---
EXAMINATION TYPE: CT chest w con DATE OF EXAM: 03/20/2020 COMPARISON: 10/29/2019 HISTORY: follow up lung cancer CT DLP: 302 mGycm, Automated exposure control for dose reduction was used. CONTRAST: Performed injected with 80 mL of Isovue 300. TECHNIQUE: Axial images were obtained at 5 mm thick sections. Reconstructed images are reviewed on [employer] computer in the coronal plane. FINDINGS: Portion of the thyroid visualized is normal. There are several small nodules in the upper lung galicia. The largest measures 0.6 cm. These nodules are present previously and is diminished in size over the interval. Additionally, some larger nodules have resolved and previous nodules at the lower lung galicia have resolved. No new or increasing size d nodules are evident. No enlarged mediastinal or hilar adenopathy is evident. The ascending aorta diameter at the level o f the main pulmonary artery is 3.2 cm. The main pulmonary artery diameter at the bifurcation is 3.0 cm. Coronary artery calcification is present. Limited CT sections are obtained through the upper abdomen. Small hiatal hernia is present. There is some mild fullness of the left adrenal gland measuring 1.1 cm in transverse dimension. This is smalle r than comparison. IMPRESSIONS: 1. Diminished size with some resolution of some nodules within the lung galicia. No new or increasing nodule size is evident. 2. Diminished size of the left adrenal gland.
== END | disposition home or self-care (01) ==
LOC: RADCTMAIN 08:38
PROVIDERS: ATTEND Internal Medicine Hematology & Oncology
DX: C34.92 Malignant neoplasm of unspecified part of left bronchus or lung (principal)
CPT/HCPCS: 82565; 84520; 71260; 36415; Q9967

== ENCOUNTER 2020-03-24 14:30 | Inpatient (IN) | payer BC ==
[2020-03-24] MEDS ORDERED: PANTOPRAZOLE 40 MG/10 ML VIAL IVP STA (14:57)
--- NOTE | 2020-03-24 15:38 | ED ---
General Adult HPI - General Chief complaint: GI Bleed Stated complaint: Vomiting Time Seen by Provider: 03/24/20 14:36 Source: patient, EMS, RN notes reviewed, old records reviewed Mode of arrival: EMS Limitations: no limitations - History of Present Illness Initial comments: 65-year-old female patient past history significant for stage IV lung cancer not currently on any sort of chemotherapy presents to ED for chief complaint of nausea and vomiting which started this morning. She states that she had approximately 10 episodes of nausea and vomiting between 8 AM and 12 noon. She states that the emesis was very dark however no aneesh bright red blood was noted. Since then she states that she is not having any current nausea pain and shortness of breath. Denies any rectal bleeding, denies any use of blood thinners. Systemic: Pt denies fatigue, fever/chills, rash. Pt denies weakness, night sweats, weight loss. Neuro: Pt denies headache, visual disturbances, syncope or pre-syncope. HEENT: Pt denies ocular discharge or irritation, otalgia, rhinorrhea, pharyngitis or notable lymphadenopathy. Cardiopulmonary: Pt denies chest pain, SOB, heart palpitations, dyspnea on exertion. Abdominal/GI: Pt denies abdominal pain. : Pt denies dysuria, burning w/ urination, frequency/urgency. Denies new onset urinary or bowel incontinence. MSK: Pt denies myalgia, loss of strength or function in extremities. Neuro: Pt denies new onset weakness, paresthesias. - Related Data Home Medications Medication Instructions Recorded Confirmed Aspirin 81 mg PO DAILY 12/14/19 03/24/20 Dexamethasone [Decadron] 4 mg PO BID 12/14/19 03/24/20 Acetaminophen/Diphenhydramine 1 tab PO HS 03/24/20 03/24/20 [Tylenol Pm Ex-Strength Caplet] Dronabinol 5 mg PO HS 03/24/20 03/24/20 Lisinopril [Zestril] 10 mg PO DAILY 03/24/20 03/24/20 Prochlorperazine [Compazine] 10 mg PO Q6H PRN 03/24/20 03/24/20 Tetracycline HCl 500 mg PO Q12H 03/24/20 03/24/20 Allergies Allergy/AdvReac Type Severity Reaction Status Date / Time No Known Allergies Allergy Verified 03/24/20 17:02 Review of Systems ROS Statement: Those systems with pertinent positive or pertinent negative responses have been documented in the HPI. ROS Other: All systems not noted in ROS Statement are negative. Past Medical History Past Medical History: Cancer, COPD Additional Past Medical History / Comment(s): lost voice in April 2019 with continuing cough, Stage 4 lung CA. History of Any Multi-Drug Resistant Organisms: None Reported Past Surgical History: Coronary Bypass/CABG, Heart Catheterization With Stent, Orthopedic Surgery Additional Past Surgical History / Comment(s): cabg 04/2004, carpal tunnel ana,hip surgery repair nerve , rt rotator cuff repair Past Anesthesia/Blood Transfusion Reactions: No Reported Reaction, Family History of Problems w/ Anesthesia Additional Past Anesthesia/Blood Transfusion Reaction / Comment(s): mother takes long time to come out of anesthesia Date of Last Stent Placement:: 08/05 Past Psychological History: No Psychological Hx Reported Smoking Status: Former smoker - Past Family History Mother Family Medical History: No Reported History General Exam - General Exam Comments Initial Comments: Constitutional: NAD, AOX3, Pt has pleasant affect. HEENT: NC/AT, trachea midline, neck supple, no lymphadenopathy. Posterior pharynx non erythematous, without exudates. External ears appear normal, without discharge. Mucous membranes moist. Eyes PERRLA, EOM intact. There is no scleral icterus. No pallor noted. Cardiopulmonary: RRR, no murmurs, rubs or gallops, no JVD noted. Lungs CTAB in anterior and posterior galicia. No peripheral edema. Abdominal exam: Abdomen soft and non-distended. Abdomen non-tender to palpation in all 4 quadrants. Bowel sounds active in LLQ. No hepatosplenomegaly. No ecchymosis. Fecal occult blood was performed chaperoned by JOSE MIGUEL Galvez. Neuro: CN II-XII grossly intact. No nuchal rigidity. No raccon eyes, no tello sign, no hemotympanum. No cervical spinal tenderness. MSK: No posterior calf tenderness bilaterally, homans sign negative bilaterally. Limitations: no limitations Course Vital Signs 03/24/20 14:33 Temperature 97.7 F Pulse Rate 101 H Respiratory 16 Rate Blood Pressure 156/67 O2 Sat by Pulse 100 Oximetry Medical Decision Making - Medical Decision Making 65-year-old female patient past history significant for stage IV lung cancer not currently on any sort of chemotherapy presents to ED for chief complaint of nausea and vomiting which started this morning. She states that she had approximately 10 episodes of nausea and vomiting between 8 AM and 12 noon. She states that the emesis was very dark however no aneesh bright red blood was noted. Since then she states that she is not having any current nausea pain and shortness of breath. Denies any rectal bleeding, denies any use of blood thinners. Patient vital signs displayed a heart rate of 101. Physical exam did display mild pallor. Laboratory investigations were obtained White blood cell count of 0.1. Hemoglobin of 6.4, platelets of 11. Troponin is negative. Patient does have acute T-wave inversions on EKG no chest pain or shortness of breath. Patient had recent bleeding, pancytopenia will not be administered aspirin. No active bleeding at this time. Was administered Protonix. Chest x- ray displayed no acute cardiopulmonary process. Patient transfused 1 unit of platelets and hemoglobin will be admitted to the ICU. She last had chemotherapy last week. Case discused and pt seen by Dr. Lara - Lab Data Result diagrams: 03/24/20 15:38 03/24/20 15:38 Lab Results 03/24/20 03/24/20 03/24/20 Range/Units 15:38 15:38 15:38 WBC 0.1 L* (3.8-10.6) k/uL RBC 2.01 L (3.80-5.40) m/uL Hgb 6.4 L* (11.4-16.0) gm/dL Hct 18.7 L* (34.0-46.0) % MCV 93.2 (80.0-100.0) fL MCH 31.9 (25.0-35.0) pg MCHC 34.2 (31.0-37.0) g/dL RDW 17.7 H (11.5-15.5) % Plt Count 11 L* (150-450) k/uL Manual Slide Review Performed Anisocytosis Slight PT 10.4 (9.0-12.0) sec INR 1.0 (<1.2) APTT 22.4 (22.0-30.0) sec Sodium 132 L (137-145) mmol/L Potassium 3.5 (3.5-5.1) mmol/L Chloride 98 (98-107) mmol/L Carbon Dioxide 23 (22-30) mmol/L Anion Gap 11 mmol/L BUN 19 H (7-17) mg/dL Creatinine 1.02 (0.52-1.04) mg/dL Est GFR (CKD-EPI)AfAm 68 (>60 ml/min/1.73 sqM) Est GFR (CKD-EPI)NonAf 59 (>60 ml/min/1.73 sqM) Glucose 93 (74-99) mg/dL Plasma Lactic Acid Vladimir (0.7-2.0) mmol/L Calcium 8.7 (8.4-10.2) mg/dL Total Bilirubin 1.2 (0.2-1.3) mg/dL AST 21 (14-36) U/L ALT 23 (4-34) U/L Alkaline Phosphatase 78 (38-126) U/L Troponin I (0.000-0.034) ng/mL Total Protein 6.3 (6.3-8.2) g/dL Albumin 3.4 L (3.5-5.0) g/dL Lipase (23-300) U/L Blood Type Blood Type Recheck Bld Type Recheck Status Antibody Screen Spec Expiration Date 03/24/20 03/24/20 03/24/20 Range/Units 15:38 15:38 15:38 WBC (3.8-10.6) k/uL RBC (3.80-5.40) m/uL Hgb (11.4-16.0) gm/dL Hct (34.0-46.0) % MCV (80.0-100.0) fL MCH (25.0-35.0) pg MCHC (31.0-37.0) g/dL RDW (11.5-15.5) % Plt Count (150-450) k/uL Manual Slide Review Anisocytosis PT (9.0-12.0) sec INR (<1.2) APTT (22.0-30.0) sec Sodium (137-145) mmol/L Potassium (3.5-5.1) mmol/L Chloride (98-107) mmol/L Carbon Dioxide (22-30) mmol/L Anion Gap mmol/L BUN (7-17) mg/dL Creatinine (0.52-1.04) mg/dL Est GFR (CKD-EPI)AfAm (>60 ml/min/1.73 sqM) Est GFR (CKD-EPI)NonAf (>60 ml/min/1.73 sqM) Glucose (74-99) mg/dL Plasma Lactic Acid Vladimir 1.1 (0.7-2.0) mmol/L Calcium (8.4-10.2) mg/dL Total Bilirubin (0.2-1.3) mg/dL AST (14-36) U/L ALT (4-34) U/L Alkaline Phosphatase (38-126) U/L Troponin I <0.012 (0.000-0.034) ng/mL Total Protein (6.3-8.2) g/dL Albumin (3.5-5.0) g/dL Lipase (23-300) U/L Blood Type O Positive Blood Type Recheck O Pos Bld Type Recheck Status No Antibody Screen NEGATIVE Spec Expiration Date 03/27/2020 - 233703/24/20 Range/Units 15:38 WBC (3.8-10.6) k/uL RBC (3.80-5.40) m/uL Hgb (11.4-16.0) gm/dL Hct (34.0-46.0) % MCV (80.0-100.0) fL MCH (25.0-35.0) pg MCHC (31.0-37.0) g/dL RDW (11.5-15.5) % Plt Count (150-450) k/uL Manual Slide Review Anisocytosis PT (9.0-12.0) sec INR (<1.2) APTT (22.0-30.0) sec Sodium (137-145) mmol/L Potassium (3.5-5.1) mmol/L Chloride (98-107) mmol/L Carbon Dioxide (22-30) mmol/L Anion Gap mmol/L BUN (7-17) mg/dL Creatinine (0.52-1.04) mg/dL Est GFR (CKD-EPI)AfAm (>60 ml/min/1.73 sqM) Est GFR (CKD-EPI)NonAf (>60 ml/min/1.73 sqM) Glucose (74-99) mg/dL Plasma Lactic Acid Vladimir (0.7-2.0) mmol/L Calcium (8.4-10.2) mg/dL Total Bilirubin (0.2-1.3) mg/dL AST (14-36) U/L ALT (4-34) U/L Alkaline Phosphatase (38-126) U/L Troponin I (0.000-0.034) ng/mL Total Protein (6.3-8.2) g/dL Albumin (3.5-5.0) g/dL Lipase 19 L (23-300) U/L Blood Type Blood Type Recheck Bld Type Recheck Status Antibody Screen Spec Expiration Date - EKG Data -: EKG Interpreted by Me (and Dr. Lara ) EKG Comments: Ventricular rate 98,. For 144, QRS 88, QT/QTC 364/464. Normal sensory rhythm, ST-T wave abnormalities. T-wave inversions noted in V1 through V6. Disposition Clinical Impression: Hematemesis, Pancytopenia Disposition: ADMITTED IP TO THIS [facility] Condition: Serious Is patient prescribed a controlled substance at d/c from ED?: No Referrals: Paul Guo DO [Primary Care Provider] - 1-2 days
[2020-03-24 16:14] LABS: Anisocytosis Slight; MCH 31.9 pg (25.0-35.0); MCHC 34.2 g/dL (31.0-37.0); MCV 93.2 fL (80.0-100.0); Mean Platelet Volume 10.4; Partial Thromboplastin Time 22.4 sec (22.0-30.0); Prothrombin Time 10.4 sec (9.0-12.0); RBC 2.01 m/uL (3.80-5.40); RDW 17.7 % (11.5-15.5)
[2020-03-24 16:21] LABS: Albumin 3.4 g/dL (3.5-5.0); Calcium 8.7 mg/dL (8.4-10.2); Potassium 3.5 mmol/L (3.5-5.1); Total Bilirubin 1.2 mg/dL (0.2-1.3); Total Protein 6.3 g/dL (6.3-8.2)
[2020-03-24 16:25] LABS: HCT 18.7 % (34.0-46.0); HGB 6.4 gm/dL (11.4-16.0)
--- NOTE | 2020-03-24 16:34 | XR ---
EXAMINATION TYPE: XR chest 2V DATE OF EXAM: 03/24/2020 COMPARISON: 12/16/2019 and 12/14/2019. HISTORY: Chest pain TECHNIQUE: Frontal and lateral views of the chest are obtained. FINDINGS: Right-sided Mediport and post CABG changes are again seen of the chest. Cardia mediastinal silhouette size is stable. There is diffuse and mild osseous demineralization. No new focal consolid ation, pleural effusion or pneumothorax. Upper and mid thoracic compression deformities again noted. The small pulmonary nodule seen on the prior CT are better visualized on CT and should be followed wi th CT rather than radiograph. IMPRESSION: No acute cardiopulmonary process.
[2020-03-24 16:43] LABS: WBC 0.1 k/uL (3.8-10.6)
[2020-03-24 16:45] LABS: Platelet Count 11 k/uL (150-450)
[2020-03-24] MEDS ORDERED: NALOXONE 0.4 MG/ML 1 ML VIAL IV PRN (17:02)
[2020-03-24 20:08] LABS: Glucose,Whole Blood 92 mg/dL (75-99)
[2020-03-24] MEDS ORDERED: IPRATROPIUM-ALBUTEROL 3 ML NEB INHALATION PRN (20:16)
[2020-03-24] MEDS ORDERED: PROCHLORPERAZINE 10 MG TAB PO PRN (20:16)
[2020-03-24] MEDS ORDERED: LORazepam 0.5 MG TAB PO PRN (20:17)
--- NOTE | 2020-03-24 22:31 | HP ---
HISTORY AND PHYSICAL CHIEF COMPLAINT: GI bleed and shortness of breath. HISTORY OF PRESENT ILLNESS: This 65-year-old woman with a past medical history of stage IV lung cancer, not on treatment currently, COPD, history of CAD, CABG stent being followed by Dr. Guo in the outpatient setting was complaining of increasing shortness of breath. The patient also had nausea, vomiting, and started this morning and approximately after 10 episodes between 8 and 12, the patient had episodes of very dark material and patient came to [facility] and admitted for further evaluation and treatment. The patient appears to be significantly gurgly even the chest x-ray did not show much of abnormality. Patient had significant pancytopenia, hemoglobin 6.4. The patient admitted to ICU for further evaluation and treatment at this time for evaluation of upper GI bleed. Gastroenterology and pulmonology consultation also has been sought. There is no history of any fever, rigor or chills. No history of any contact with Covid 19 and the Covid 19 test has been sought at this time. PAST MEDICAL HISTORY: History of COPD, history of stage IV lung cancer, history of CAD, CABG, history of dysphonia. MEDICATIONS: 1. Compazine 10 mg q.6 p.r.n. 2. Aspirin 81 mg daily. 3. Tylenol p.r.n. 4. Dexamethasone 4 mg p.o. b.i.d. 5. Tetracycline 500 mg p.o. b.i.d. 6. Zestril 10 mg p.o. 7. Dronabinol 5 mg q.h.s. ALLERGIES: None. FAMILY HISTORY: No history of heart disease or strokes in the family. No history of cancer in the family. SOCIAL HISTORY: Previous history of smoking. Occasional alcohol intake. REVIEW OF SYSTEMS: ENT: No diminished vision. No diminished hearing. CARDIOVASCULAR is no angina. RESPIRATORY: As mentioned earlier. GI: As mentioned earlier. no dysuria. CENTRAL NERVOUS SYSTEM: No numbness or weakness. ALLERGY/IMMUNOLOGY: No asthma or hayfever. MUSCULOSKELETAL as mentioned earlier. HEMATOLOGY/ONCOLOGY mentioned earlier. ENDOCRINE: No history of diabetes or hypothyroidism. CONSTITUTIONAL: As mentioned earlier. DERMATOLOGY: Negative. RHEUMATOLOGY negative. PSYCHIATRY as mentioned earlier. PHYSICAL EXAMINATION: Alert and oriented x2. Pulse 110, blood pressure 143/79, respiration 18, temperature 100.3, pulse ox 98% on room air. HEENT: Conjunctivae normal. Oral mucosa moist. NECK is no jugular venous distention. No carotid bruit. No lymph node enlargement. CARDIOVASCULAR system: S1, S2 muffled. No S3, no S4. RESPIRATORY: Breath sounds diminished in the bases. Bilateral scattered rhonchi and crackles. Expiratory wheezing also heard. ABDOMEN: Soft, nontender. Obese. No mass palpable. LEGS: No edema. No swelling. NERVOUS SYSTEM: Higher functions as mentioned earlier. Moves all 4 limbs. No focal motor or sensory deficits. LYMPHATICS: No lymph nodes palpable in the neck, axillae or groin. SKIN: No ulcer, rash or bleeding. JOINTS: No active deforming arthropathy. LABS: At this time show WBC 0.1, hemoglobin 6.4, platelets 11, sodium 132, potassium 3.5. ASSESSMENT: 1. Acute upper gastrointestinal bleeding with acute blood loss anemia. Rule out peptic ulcer disease. 2. Severe pancytopenia. 3. Acute blood loss anemia. 4. Possibly neutropenic sepsis. 5. Chronic obstructive pulmonary disease acute exacerbation. 6. Diffuse ST-T changes in the EKG. 7. Stage IV lung cancer. 8. Hyponatremia. 9. Change in mental status, metabolic encephalopathy, multifactorial. 10.History of dysphonia. 11.History of coronary artery disease, coronary artery bypass grafting/stent. 12.History of degenerative joint disease. 13.Remote history of nicotine dependence. 14.History of ETOH. 15.FULL CODE. RECOMMENDATIONS AND DISCUSSION: This 65-year-old woman who presented with multiple complex medical issues, at this time I recommend continue the current medications, continue with symptomatic treatment. We will transfuse the patient at least 1 unit at this time, transfer the patient to ICU. Consult Gastroenterology, Dr. Ramos for ICU management. Otherwise, I would also recommend empiric antibiotics for neutropenic sepsis and as well as bronchodilators and IV steroids as well. We will hold off the antiplatelet agents because of the evidence of gastrointestinal bleeding. We will monitor the hemoglobin serially. Overall prognosis extremely guarded because of multiple complex medical issues and Hematology/ Oncology also will be consulted as well. EKG also showed some ST-T changes significance of which is unknown at this time. Troponins are normal. I would recommend a 2D echo with Doppler and cardiology consultation as well. Once again the prognosis is guarded because of multiple complex medical issues and a copy of this dictation will be forwarded to Dr. Guo who is the primary physician. MMODL / IJN: [id number] /
[2020-03-24 23:09] LABS: Anisocytosis Slight; HCT 25.3 % (34.0-46.0); Hypochromasia Slight; MCH 31.5 pg (25.0-35.0); MCHC 33.7 g/dL (31.0-37.0); MCV 93.3 fL (80.0-100.0); Mean Platelet Volume 17.2; RBC 2.72 m/uL (3.80-5.40); RDW 17.7 % (11.5-15.5)
[2020-03-24 23:15] LABS: HGB 8.5 gm/dL (11.4-16.0); Platelet Count 20 k/uL (150-450); WBC 0.2 k/uL (3.8-10.6)
[2020-03-25] MEDS: ACETAMINOPHEN TAB 500 MG TAB PO SCH ×2 (00:10→21:23)
[2020-03-25] MEDS: diphenhydrAMINE 25 MG CAP PO SCH ×2 (00:10→21:24)
[2020-03-25] MEDS: CEFEPIME 2 GM in SODIUM CHLORIDE 0.9% 100 ML IVPB SCH ×4 (00:13→21:24)
[2020-03-25 00:18] LABS: Glucose,Whole Blood 101 mg/dL (75-99)
[2020-03-25] MEDS: INSULIN ASPART (NovoLOG) 100 UNIT/ML VIAL SQ SCH ×5 (00:18→21:30)
[2020-03-25] MEDS: methylPREDNISolone SOD SUCCI 125 MG/2 ML VIAL IV SCH ×6 (01:10→23:43)
[2020-03-25 05:04] LABS: Potassium 3.1 mmol/L (3.5-5.1)
[2020-03-25] MEDS ORDERED: Potassium Replacement Protocol 1 EACH MISC MISCELLANE PRN (05:41)
[2020-03-25] MEDS: POTASSIUM CHLORIDE 20 MEQ in WATER FOR INJECTION 1 100ML.BAG IVPB SCH ×2 (05:58→08:05)
[2020-03-25 06:42] LABS: Anisocytosis Slight; MCH 30.9 pg (25.0-35.0); MCHC 34.3 g/dL (31.0-37.0); MCV 90.2 fL (80.0-100.0); Mean Platelet Volume 9.1; Platelet Count 27 k/uL (150-450); RBC 2.22 m/uL (3.80-5.40)
[2020-03-25 06:46] LABS: HGB 6.9 gm/dL (11.4-16.0); WBC 0.1 k/uL (3.8-10.6)
[2020-03-25 07:01] LABS: Glucose,Whole Blood 94 mg/dL (75-99)
[2020-03-25] MEDS: IPRATROPIUM-ALBUTEROL 3 ML NEB INHALATION SCH ×3 (08:06→20:26)
--- NOTE | 2020-03-25 09:53 | CONS ---
CONSULTATION DATE OF DICTATION: March 25, 2020. REQUESTING PHYSICIAN: Dr. Guo. REASON FOR CONSULTATION: Coffee-ground emesis. HISTORY OF PRESENT ILLNESS: The patient is a 65-year-old pleasant white female with history of stage IV lung cancer, presently undergoing chemotherapy, finished her 9th cycle last . Came in the emergency room complaining of shortness of breath, low-grade fever associated with multiple episodes of nausea and vomiting that started yesterday morning. She had about 10 or 12 episodes followed by coffee-grounds emesis. She was noted to be somewhat orthostatic and had a hemoglobin of 6.4 and was admitted to the intensive care unit. She is also noted to have severe pancytopenia. As per the nursing staff, she had couple of episodes of coffee-ground emesis last night and no further episodes of bleeding. In fact, she has no nausea, vomiting, and no melena. She received one unit of PRBC transfusion. Hemoglobin is 8.3 g/dL. She denies any abdominal pain. No prior history of peptic ulcer disease. She denies any recent NSAID use. COVID-19 was done and is still pending at the time of this dictation. PAST MEDICAL HISTORY: Stage IV lung cancer. Currently undergoing chemotherapy, last dose was last . History of coronary artery disease, hypertension, COPD. MEDICATIONS: At home include Compazine, aspirin, Tylenol, dexamethasone, tetracycline, Zestril, and . ALLERGIES: None. SOCIAL HISTORY: Previous history of smoking. No alcohol use. FAMILY HISTORY: Mother had coronary artery disease. PAST SURGICAL HISTORY: Cardiac catheterization, CABG, carpal tunnel, rotator cuff repair. PHYSICAL EXAMINATION: She appears comfortable no apparent distress. VITAL SIGNS: Stable. Blood pressure is 155/99, pulse rate 73, afebrile. HEENT examination unremarkable. Conjunctivae pink. Sclerae anicteric. Oral cavity no lesions. NECK: No JVD or lymph node enlargement. CHEST: Clear to auscultation. HEART: Regular rate and rhythm. ABDOMEN: Soft, it was nontender, nondistended. Bowel sounds are positive. No organomegaly. EXTREMITIES: No pedal edema. SKIN no rashes. NEURO: She is alert and oriented x3. No focal deficits. LABS: Initial hemoglobin was 6.4. Repeat hemoglobin 8.5, and again this morning it is down to 6.9. WBC count today is 0.1 and platelets are 27,000. BUN and creatinine are within normal limits. Rest of the labs are within normal limits. Troponin slightly elevated at 0.8. Stool occult blood was negative. IMPRESSION: 1. Severe pancytopenia secondary to chemo induced. The patient diagnosed with stage IV lung cancer, undergoing chemotherapy, last dose was last . 2. Febrile neutropenia. The patient presented with low-grade fever and some cough and shortness of breath, presently on broad-spectrum antibiotics. 3. Severe nausea vomiting that started yesterday morning with 2 episodes of coffee- ground emesis towards the end. Most likely related to a Kori-Melvin tear or chemo induced gastritis. Currently she is hemodynamically stable. She is not having any active bleeding since being in ICU. She received one unit of PRBC and one unit of platelets. Last hemoglobin 6.9 and currently receiving a 2nd unit of blood. Possibility of peptic ulcer disease cannot be excluded. 4. History of chronic obstructive pulmonary disease. 5. Covid-19 is pending. RECOMMENDATIONS: 1. Continue with broad-spectrum antibiotics. 2. Transfuse with one unit of PRBC. 3. Continue with Protonix 40 mg twice daily. 4. No plans on any endoscopy intervention at the present time because of the severe pancytopenia. 5. Monitor CBC closely. 6. We will follow with you. Thank you for this consultation. ABRAHAN / LAVERN: [id number] /
--- NOTE | 2020-03-25 10:07 | XR ---
EXAMINATION TYPE: XR chest 1V portable DATE OF EXAM: 03/25/2020 COMPARISON: 03/24/2020 HISTORY: History of lung cancer. TECHNIQUE: Single frontal view of the chest is obtained. FINDINGS: Short-term interval development of multifocal right-sided opacities most prominent in the right infrahilar region. Right sided Mediport is present. Platelike atelectasis at the left costophre melina angle. Enlarged cardiac mediastinal silhouette with post CABG change. No new sizable pleural effu yadi or pneumothorax. IMPRESSION: Short-term interval development of multifocal right-sided opacities concerning for multi focal pneumonia.
--- NOTE | 2020-03-25 11:03 | P.PN ---
Progress Note - Text Progress Note Date: 03/25/20 Small Cell Lung Cancer Patient of Dr. Portillo - Status POst Cycle 4 of chemotherapy with Carboplatin, [employer]-16 and Tecentriq, no growth factor - Last treatment given 03/15/20 Pancytopenia: Secondary to recent chemotherapy and evaluation for infection - Start Zarxio 480mcg daily - Broad Spectrum Abx - Wagner Cultures - Transfuse Hemoglobin less then 7, plt less than 15K Adrenal Insufficiency secondary to possible tecentriq immune therapy - Decreased cortisol - Continue Methylprednisone and PPI Acute issues per primary and ICU care Full consult to follow
[2020-03-25 12:00] LABS: Glucose,Whole Blood 83 mg/dL (75-99)
[2020-03-25] MEDS: FILGRASTIM-SNDZ 480 MCG/0.8 ML SYRINGE SQ SCH (12:45)
[2020-03-25] MEDS: PANTOPRAZOLE 40 MG/10 ML VIAL IVP SCH ×2 (12:45→21:25)
[2020-03-25 13:06] LABS: Magnesium 1.8 mg/dL (1.6-2.3)
[2020-03-25] MEDS: LORATADINE 10 MG TAB PO SCH (13:46)
[2020-03-25 14:21] LABS: Hypochromasia Slight; MCHC 32.6 g/dL (31.0-37.0); MCV 95.1 fL (80.0-100.0); Mean Platelet Volume 8.6; RBC 3.16 m/uL (3.80-5.40); RDW 15.6 % (11.5-15.5)
[2020-03-25 14:22] LABS: WBC 0.2 k/uL (3.8-10.6)
[2020-03-25 14:23] LABS: HGB 9.8 gm/dL (11.4-16.0); Platelet Count 21 k/uL (150-450)
[2020-03-25 14:42] LABS: Poikilocytosis (M) Present
[2020-03-25 17:29] LABS: Glucose,Whole Blood 161 mg/dL (75-99)
[2020-03-25] MEDS: LISINOPRIL 10 MG TAB PO SCH (18:26)
--- NOTE | 2020-03-25 18:44 | PN ---
PROGRESS NOTE DATE OF SERVICE: 03/25/2020 This 65-year-old woman who was admitted with acute upper GI bleeding with acute blood loss anemia is being closely monitored. Patient also has severe pancytopenia. The patient also had significant difficulty with shortness of breath yesterday possibly as a result of aspiration, but however the chest x-ray which was done today which was reviewed personally by me showed significant lesions on the right side of the chest, possibly indicating multifocal pneumonia or aspiration. The patient was also seen by Hematology/Oncology and Gastroenterology, Dr. Hernandez has seen the patient and recommended continue the conservative line of management and the bleeding could be related to either Kori-Melvin or chemotherapy induced gastritis. Hemoglobin is stable at 9.8 after transfusion, which was 6.9 this morning and white count is still low at 0.2. The troponins elevated up to 0.919. The cultures are negative so far. PAST MEDICAL HISTORY: Medical history reviewed. REVIEW OF SYSTEMS: Cardiovascular: No angina. Respiratory: As mentioned earlier. GI: As mentioned earlier. no dysuria. Nervous systems: No numbness or weakness. CURRENT MEDICATIONS: 1. Tylenol p.r.n. 2. DuoNeb q.i.d. and p.r.n. 3. Cefepime 2 grams IV q.8h. 4. Benadryl 25 mg. 5.40 mg subcu daily. 6. NovoLog scale. 7. Claritin. 8. Solu-Medrol 60 IV q.6. 9. Narcan. 10.Protonix. 11.Compazine. PHYSICAL EXAM: Patient is alert, oriented x2. Pulse is 82. Blood pressure 159/84, respirations 16, temperature 97.2, pulse ox 97% on room air. HEENT: Conjunctivae normal. NECK: No JVD. CARDIOVASCULAR: S1, S2 muffled. RESPIRATORY SYSTEM: Breath sounds diminished at the bases. Bilateral scattered rhonchi, right more the left. ABDOMEN: Soft, nontender. LEGS are no edema. No swelling. LABS: WBC 0.2, hemoglobin 10.8, platelets 21. Troponins are noted. ASSESSMENT: 1. 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 2. Possible neutropenic sepsis. 3. History of small cell lung cancer on chemotherapy per Dr. Alsawah. 4. Severe pancytopenia secondary to chemotherapy. 5. Adrenal insufficiency secondary to immune therapy Tecentraq. 6. Chronic obstructive pulmonary disease acute exacerbation. 7. Acute blood loss anemia, possibly. 8. Diffuse ST changes in the EKG. 9. Troponin 0.919. Possible acute [id number]-QY-nyloeja-elevation myocardial infarction. 10.Stage IV lung cancer. 11.Hyponatremia. 12.Change in mental status, metabolic encephalopathy, multifactorial. 13.History of dysphonia. 14.History of coronary artery disease, coronary artery bypass grafting/stent. 15.History of degenerative joint disease. 16.Remote history of nicotine dependence. 17.History of ETOH. 18.FULL CODE. RECOMMENDATIONS AND DISCUSSION: This 65-year-old woman who presented with multiple complex medical issues, we will monitor the patient closely. Continue the current medications, management and treatment. Otherwise at this time I recommend continue with the bronchodilators. Continue with IV steroids. Continue with the rest of medications. Random cortisol testing. I would also recommend empiric antibiotics in the form of the Cefepime. I also recommend consultation with Dr. Santoyo from Infectious Disease point of view. Covid- 19 testing is positive even though it was suspected. We will continue to monitor. MMODL / IJN: [id number] / USHA
--- NOTE | 2020-03-25 19:26 | CT ---
EXAMINATION TYPE: CT chest abdomen wo con DATE OF EXAM: 03/25/2020 COMPARISON: Prior CT chest 03/20/2020 HISTORY: History lung ca. Shortness of breath. CT DLP: 397.6 mGycm Automated exposure control for dose reduction was used. CT of the chest and abdomen performed using d epartmental protocol FINDINGS: Lack of intravenous contrast may compromise sensitivity. There are small bilateral effusions suspecte d. There is some minimal dependent atelectatic change. Along the fissure in the left lower lobe there is a nodular appearance likely representing pseudotumor. There are dense coronary artery calcificati ons present. No hernia is noted. There is right-sided chest port present, there is an internal jugular vein approach, distal tip the c atheter is within the superior vena cava. No pericardial effusion, axillary or mediastinal adenopathy . No evident pneumothorax. There is a density adjacent to the descending aorta within the left lower lobe which may also represent fluid. ABDOMEN: There is no pneumoperitoneum. Dense atherosclerotic calcifications present within the aortoi liac distribution. Liver shows no mass. Gallbladder is unremarkable. There is mild prominence of the adrenal glands as on prior exam. Pancreas, spleen, kidneys as visualized are unremarkable. No retrope ritoneal adenopathy or ascites. Diverticular changes associated with the colon.0 degenerative disc ch anges are present in the visualized spine. IMPRESSION: PROBABLE PSEUDOTUMORS ALONG THE FISSURE ON THE LEFT. INDETERMINATE PROMINENCE OF THE ADRENAL GLANDS. CORONARY ARTERY DISEASE. SOME BASILAR ATELECTASIS IS GREATER ON THE RIGHT THAN ON THE LEFT, THERE IS MINIMAL EFFUSION ON THE RIGHT AND ONLY A TRACE EFFUSION SUSPECTED ON THE LEFT.
--- NOTE | 2020-03-25 20:35 | P.CNPUL ---
History of Present Illness Consult date: 03/25/20 (Critical care time 45 minutes) Reason for consult: dyspnea Chief complaint: ICU care History of present illness: This is a 65-year-old female who was seen eval reexamined in ICU, patient sees Dr. Guo for primary care activity, she admitted into the hospital with ongoing nausea vomiting she was found to have severe anemia, her history is significant for stage IV lung cancer, also has significant history of COPD c oronary artery disease history of bypass surgery as well as stent placement, she has ongoing chronic shortness of breath patient is started having nausea vomiting for 1 day, he misses appeared to be very dark, came into the hospital for further evaluation in the emergency department she was noted to have significant pancytopenia hemoglobin is only 6.4 patient admitted into the hospital for further evaluation with GI as well as oncology on consult, her chest x-ray showed a pulmonary nodule, review of the data revealed that patient has a small cell lung cancer, patient has received chemotherapy with carboplatin and [employer]-16 it appears to be 4 cycle of chemotherapy was given mid March, patient has been found to have severe neutropenia likely related to postchemotherapy, patient currently have been started on Xanax 0 along with broad-spectrum antibiotics pending cultures are being obtained, and she is been placed on Solu- Medrol as well as PPI, currently she is on cephapirin Estefani her WBC is 0.2, after transfusion of 2 packed RBC hemoglobin improved to 9.8, platelets are 21, her troches are going up latest is 0.9, coronary virus is negative, Review of Systems All systems: negative Past Medical History Past Medical History: Cancer, COPD Additional Past Medical History / Comment(s): lost voice in April 2019 with continuing cough, Stage 4 lung CA. History of Any Multi-Drug Resistant Organisms: None Reported Past Surgical History: Coronary Bypass/CABG, Heart Catheterization With Stent, Orthopedic Surgery Additional Past Surgical History / Comment(s): cabg 04/2004, carpal tunnel ana,hip surgery repair nerve , rt rotator cuff repair Past Anesthesia/Blood Transfusion Reactions: No Reported Reaction, Family History of Problems w/ Anesthesia Additional Past Anesthesia/Blood Transfusion Reaction / Comment(s): mother takes long time to come out of anesthesia Date of Last Stent Placement:: 08/05 Past Psychological History: No Psychological Hx Reported Smoking Status: Former smoker - Past Family History Mother Family Medical History: No Reported History Medications and Allergies Home Medications Medication Instructions Recorded Confirmed Type Aspirin 81 mg PO DAILY 12/14/19 03/24/20 History Dexamethasone [Decadron] 4 mg PO BID 12/14/19 03/24/20 History Acetaminophen/Diphenhydramine 1 tab PO HS 03/24/20 03/24/20 History [Tylenol Pm Ex-Strength Caplet] Dronabinol 5 mg PO HS 03/24/20 03/24/20 History Lisinopril [Zestril] 10 mg PO DAILY 03/24/20 03/24/20 History Prochlorperazine [Compazine] 10 mg PO Q6H PRN 03/24/20 03/24/20 History Tetracycline HCl 500 mg PO Q12H 03/24/20 03/24/20 History Allergies Allergy/AdvReac Type Severity Reaction Status Date / Time No Known Allergies Allergy Verified 03/24/20 17:02 Physical Exam Vitals: Vital Signs Temp Pulse Resp BP Pulse Ox 03/25/20 20:00 98.6 F 97 20 151/98 97 03/25/20 19:00 100 16 160/96 96 03/25/20 18:00 96 16 169/89 96 03/25/20 17:00 87 16 162/91 99 03/25/20 16:00 98.0 F 95 18 152/92 98 03/25/20 15:00 89 14 165/98 98 03/25/20 14:00 82 16 159/84 97 03/25/20 13:00 80 11 L 161/81 99 03/25/20 12:11 97.6 F 80 16 161/81 99 03/25/20 12:02 94 03/25/20 12:00 97.6 F 79 16 168/95 98 03/25/20 11:38 92 03/25/20 11:00 75 15 162/85 99 03/25/20 10:00 84 21 156/81 97 03/25/20 09:39 97.9 F 76 22 156/81 99 03/25/20 09:09 97.1 F L 80 20 163/84 97 03/25/20 09:00 81 22 158/88 98 03/25/20 08:59 97.1 F L 80 20 158/88 97 03/25/20 08:19 104 H 03/25/20 08:06 82 03/25/20 08:00 97.1 F L 77 16 165/98 98 03/25/20 07:00 87 12 161/86 96 03/25/20 06:00 73 20 155/99 99 03/25/20 05:00 71 18 137/86 99 03/25/20 04:00 98.9 F 74 20 144/88 99 03/25/20 03:00 76 18 151/81 98 03/25/20 02:00 110 H 22 115/75 95 03/25/20 01:00 82 17 125/82 98 03/25/20 00:00 98.9 F 98 14 170/84 95 03/24/20 23:23 97.9 F 83 22 158/88 98 03/24/20 23:00 93 18 178/77 98 03/24/20 22:00 92 12 169/86 99 03/24/20 21:00 90 12 178/83 98 Intake and Output 03/25/20 03/25/20 03/25/20 06:59 14:59 22:59 Intake Total 715 1070 120 Output Total 0 1030 305 Balance 715 40 -185 Intake: IV 100 100 120 0.9 Normal Saline 100 100 120 Intake, IV Titration 50 Amount Potassium Chloride 20 meq 50 In Water For Injection 1 100ml.bag @ 50 mls/hr IVPB Q2H [facility] Rx#: [id number] Blood Product 615 920 Platelet Irr Pheresis 305 Acda1 Unit [id number] Rc As-1 Unit 310 [id number] Rc As-3 Unit 310 [id number] Output: Urine 0 1030 305 Other: Voiding Method Indwelling Catheter Indwelling Catheter # Voids 2 0 Weight 58 kg - Constitutional General appearance: average body habitus, cooperative, disheveled - EENT Eyes: EOMI, PERRLA Ears: bilateral: normal - Neck Neck: normal ROM Carotids: bilateral: upstroke normal Thyroid: bilateral: normal size - Respiratory Respiratory: bilateral: CTA, diminished - Cardiovascular Rhythm: regular Heart sounds: normal: S1, S2 - Gastrointestinal General gastrointestinal: normal bowel sounds - Neurologic Neurologic: CNII-XII intact - Musculoskeletal Musculoskeletal: gait normal, generalized weakness, strength equal bilaterally - Psychiatric Psychiatric: A&O x's 3, appropriate affect, intact judgment & insight Results - Laboratory Findings CBC and BMP: 03/25/20 13:12 03/25/20 04:41 PT/INR, D-dimer PT 10.4 sec (9.0-12.0) 03/24/20 15:38 INR 1.0 (<1.2) 03/24/20 15:38 Abnormal lab findings: Abnormal Labs 03/24/20 03/24/20 03/24/20 15:38 15:38 15:38 WBC 0.1 L* RBC 2.01 L Hgb 6.4 L* Hct 18.7 L* RDW 17.7 H Plt Count 11 L* Sodium 132 L Potassium Carbon Dioxide BUN 19 H POC Glucose (mg/dL) Calcium Troponin I Albumin 3.4 L Lipase Crossmatch See Detail 03/24/20 03/24/20 03/24/20 15:38 22:32 22:32 WBC 0.2 L* RBC 2.72 L Hgb 8.5 L D Hct 25.3 L RDW 17.7 H Plt Count 20 L D Sodium Potassium Carbon Dioxide BUN POC Glucose (mg/dL) Calcium Troponin I 0.067 H* Albumin Lipase 19 L Crossmatch 03/25/20 03/25/20 03/25/20 00:16 04:41 04:41 WBC RBC Hgb Hct RDW Plt Count Sodium 132 L Potassium 3.1 L Carbon Dioxide 20 L BUN POC Glucose (mg/dL) 101 H Calcium 8.0 L Troponin I 0.877 H* Albumin Lipase Crossmatch 03/25/20 03/25/20 03/25/20 04:41 13:12 13:15 WBC 0.1 L* 0.2 L* RBC 2.22 L 3.16 L Hgb 6.9 L* D 9.8 L D Hct 20.0 L 30.0 L RDW 16.0 H 15.6 H Plt Count 27 L 21 L Sodium Potassium Carbon Dioxide BUN POC Glucose (mg/dL) Calcium Troponin I 0.919 H* Albumin Lipase Crossmatch 03/25/20 17:28 WBC RBC Hgb Hct RDW Plt Count Sodium Potassium Carbon Dioxide BUN POC Glucose (mg/dL) 161 H Calcium Troponin I Albumin Lipase Crossmatch - Diagnostic Findings Chest x-ray: report reviewed, image reviewed Assessment and Plan Assessment: Severe neutropenia due to postchemotherapy Stage IV small cell lung cancer Anemia thrombocytopenia and neutropenia Elevated troponin End-stage COPD History of coronary artery disease Plan: Broad-spectrum antibiotics Supplemental oxygen Status post transfusion with 2 packed RBC Keep platelets over 10,000 Zarxio is being started for severe neutropenia postchemotherapy Continue neutropenic precautions Peptic ulcer disease prophylaxis Bronchodilators Page labs and chest x-ray in the morning Other recommendations pending plan of care as per clinical response of the patient Time with Patient: Greater than 30
[2020-03-25 21:16] LABS: Glucose,Whole Blood 167 mg/dL (75-99)
[2020-03-26 04:35] LABS: HCT 25.7 % (34.0-46.0); HGB 8.7 gm/dL (11.4-16.0); MCH 31.5 pg (25.0-35.0); MCV 92.8 fL (80.0-100.0); Mean Platelet Volume 7.9; RBC 2.77 m/uL (3.80-5.40); RDW 15.9 % (11.5-15.5)
[2020-03-26 04:43] LABS: INR 1.1 (<1.2); Partial Thromboplastin Time 24.6 sec (22.0-30.0); Prothrombin Time 11.2 sec (9.0-12.0)
[2020-03-26 04:59] LABS: ALT 16 U/L (4-34); AST 17 U/L (14-36); African American GFR (CKD) >90 (>60 ml/min/1.73 sqM); Albumin 2.7 g/dL (3.5-5.0); Alkaline Phosphatase 54 U/L (38-126); Anion Gap 9 mmol/L; Blood Urea Nitrogen 13 mg/dL (7-17); Calcium 8.2 mg/dL (8.4-10.2); Carbon Dioxide 19 mmol/L (22-30); Chloride 103 mmol/L (98-107); Glucose 129 mg/dL (74-99); Magnesium 1.6 mg/dL (1.6-2.3); Non-African American GFR(CKD) 82 (>60 ml/min/1.73 sqM); Phosphorus 2.8 mg/dL (2.5-4.5); Potassium 3.4 mmol/L (3.5-5.1); Sodium 131 mmol/L (137-145); Total Bilirubin 1.4 mg/dL (0.2-1.3); Total Protein 5.5 g/dL (6.3-8.2)
[2020-03-26 05:10] LABS: WBC 0.1 k/uL (3.8-10.6)
[2020-03-26 05:21] LABS: Platelet Count 16 k/uL (150-450)
[2020-03-26] MEDS: CEFEPIME 2 GM in SODIUM CHLORIDE 0.9% 100 ML IVPB SCH ×3 (06:04→20:13)
[2020-03-26] MEDS: methylPREDNISolone SOD SUCCI 125 MG/2 ML VIAL IV SCH ×4 (06:05→23:09)
[2020-03-26 06:55] LABS: Glucose,Whole Blood 141 mg/dL (75-99)
[2020-03-26] MEDS ORDERED: Potassium Replacement Protocol 1 EACH MISC MISCELLANE PRN (07:16)
--- NOTE | 2020-03-26 07:36 | P.CONS ---
History of Present Illness - Reason for Consult Consult date: 03/26/20 lung cancer - Chief Complaint lung cancer, anemia and pancytopenia vomiting - History of Present Illness 65-year-old female currently in ICU admitted with persistent vomiting and severe anemia undergoing treatment for stage IV lung cancer and has underlying COPD, coronary artery disease currently having shortness of breath with dark brown emesis suspicious for bleeding, anemia with hemoglobin of 6.4 undergoing chemotherapy with carboplatinum and etoposide and immunotherapyAtezolizumab, completed 4 cycles so far with severe neutropenia at this time. She has been started on antibiotics, status post PRBC currently do not have access to the office records. Oncology team to follow tomorrow. Review of Systems nausea, vomiting, emesis and abdominal pain and shortness of breath Past Medical History Past Medical History: Cancer, COPD Additional Past Medical History / Comment(s): lost voice in April 2019 with continuing cough, Stage 4 lung CA. History of Any Multi-Drug Resistant Organisms: None Reported Past Surgical History: Coronary Bypass/CABG, Heart Catheterization With Stent, Orthopedic Surgery Additional Past Surgical History / Comment(s): cabg 04/2004, carpal tunnel ana,hip surgery repair nerve , rt rotator cuff repair Past Anesthesia/Blood Transfusion Reactions: No Reported Reaction, Family History of Problems w/ Anesthesia Additional Past Anesthesia/Blood Transfusion Reaction / Comm: mother takes long time to come out of anesthesia Date of Last Stent Placement:: 08/05 Past Psychological History: No Psychological Hx Reported Smoking Status: Former smoker - Past Family History Mother Family Medical History: No Reported History Medications and Allergies Home Medications Medication Instructions Recorded Confirmed Type Aspirin 81 mg PO DAILY 12/14/19 03/24/20 History Dexamethasone [Decadron] 4 mg PO BID 12/14/19 03/24/20 History Acetaminophen/Diphenhydramine 1 tab PO HS 03/24/20 03/24/20 History [Tylenol Pm Ex-Strength Caplet] Dronabinol 5 mg PO HS 03/24/20 03/24/20 History Lisinopril [Zestril] 10 mg PO DAILY 03/24/20 03/24/20 History Prochlorperazine [Compazine] 10 mg PO Q6H PRN 03/24/20 03/24/20 History Tetracycline HCl 500 mg PO Q12H 03/24/20 03/24/20 History Allergies Allergy/AdvReac Type Severity Reaction Status Date / Time No Known Allergies Allergy Verified 03/24/20 17:02 Physical Exam Vitals: Vital Signs Temp Pulse Resp BP Pulse Ox 03/26/20 07:00 84 14 150/80 97 03/26/20 06:00 83 15 161/99 98 03/26/20 05:00 87 12 153/67 99 03/26/20 04:00 98.7 F 80 12 162/94 98 03/26/20 03:00 87 18 145/90 97 03/26/20 02:00 73 18 145/90 97 03/26/20 01:00 83 12 157/90 95 03/26/20 00:04 96 98 03/26/20 00:00 98.7 F 91 12 139/88 98 03/25/20 23:00 84 18 127/65 94 L 03/25/20 22:00 96 18 156/111 95 03/25/20 21:00 98 18 160/97 97 03/25/20 20:25 104 H 03/25/20 20:00 98.6 F 97 20 151/98 97 03/25/20 19:00 100 16 160/96 96 03/25/20 18:00 96 16 169/89 96 03/25/20 17:00 87 16 162/91 99 03/25/20 16:00 98.0 F 95 18 152/92 98 03/25/20 15:00 89 14 165/98 98 03/25/20 14:00 82 16 159/84 97 03/25/20 13:00 80 11 L 161/81 99 03/25/20 12:11 97.6 F 80 16 161/81 99 03/25/20 12:02 94 03/25/20 12:00 97.6 F 79 16 168/95 98 03/25/20 11:38 92 03/25/20 11:00 75 15 162/85 99 03/25/20 10:00 84 21 156/81 97 03/25/20 09:39 97.9 F 76 22 156/81 99 03/25/20 09:09 97.1 F L 80 20 163/84 97 03/25/20 09:00 81 22 158/88 98 03/25/20 08:59 97.1 F L 80 20 158/88 97 03/25/20 08:19 104 H 03/25/20 08:06 82 03/25/20 08:00 97.1 F L 77 16 165/98 98 Intake and Output 03/25/20 03/26/20 03/26/20 22:59 06:59 14:59 Intake Total 260 160 20 Output Total 400 360 60 Balance -140 -200 -40 Intake: IV 160 160 20 0.9 Normal Saline 160 160 20 Intake, IV Titration 100 Amount Cefepime 2 gm In Sodium 100 Chloride 0.9% 100 ml @ 200 mls/hr IVPB Q8H [facility] Rx#:[id number] Output: Urine 400 360 60 Other: Voiding Method Indwelling Catheter Indwelling Catheter Weight 56.5 kg The patient appeared well nourished and normally developed. Vital signs as documented. Head exam is unremarkable. No scleral icterus or corneal arcus noted. Neck is without jugular venous distension, thyromegaly, or carotid bruits. Carotid upstrokes are brisk bilaterally. Lungs are clear to auscultation and percussion. Cardiac exam reveals the PMI to be normally sized and situated. Rhythm is regular. First and second heart sounds normal. No murmurs, rubs or gallops. Abdominal exam reveals normal bowel sounds, no masses, no organomegaly and no aortic enlargement. Extremities are nonedematous and both femoral and pedal pulses are normal. Results CBC & Chem 7: 03/26/20 03:43 03/26/20 03:43 Labs: Abnormal Lab Results - Last 24 Hours (Table) 03/24/20 03/25/20 03/25/20 Range/Units 15:38 13:12 13:15 WBC 0.2 L* (3.8-10.6) k/uL RBC 3.16 L (3.80-5.40) m/uL Hgb 9.8 L D (11.4-16.0) gm/dL Hct 30.0 L (34.0-46.0) % RDW 15.6 H (11.5-15.5) % Plt Count 21 L (150-450) k/uL Sodium (137-145) mmol/L Potassium (3.5-5.1) mmol/L Carbon Dioxide (22-30) mmol/L Glucose (74-99) mg/dL POC Glucose (mg/dL) (75-99) mg/dL Calcium (8.4-10.2) mg/dL Total Bilirubin (0.2-1.3) mg/dL Troponin I 0.919 H* (0.000-0.034) ng/mL Total Protein (6.3-8.2) g/dL Albumin (3.5-5.0) g/dL Crossmatch See Detail 03/25/20 03/25/20 03/26/20 Range/Units 17:28 21:15 03:43 WBC 0.1 L* (3.8-10.6) k/uL RBC 2.77 L (3.80-5.40) m/uL Hgb 8.7 L (11.4-16.0) gm/dL Hct 25.7 L (34.0-46.0) % RDW 15.9 H (11.5-15.5) % Plt Count 16 L* (150-450) k/uL Sodium (137-145) mmol/L Potassium (3.5-5.1) mmol/L Carbon Dioxide (22-30) mmol/L Glucose (74-99) mg/dL POC Glucose (mg/dL) 161 H 167 H (75-99) mg/dL Calcium (8.4-10.2) mg/dL Total Bilirubin (0.2-1.3) mg/dL Troponin I (0.000-0.034) ng/mL Total Protein (6.3-8.2) g/dL Albumin (3.5-5.0) g/dL Crossmatch 03/26/20 03/26/20 Range/Units 03:43 06:53 WBC (3.8-10.6) k/uL RBC (3.80-5.40) m/uL Hgb (11.4-16.0) gm/dL Hct (34.0-46.0) % RDW (11.5-15.5) % Plt Count (150-450) k/uL Sodium 131 L (137-145) mmol/L Potassium 3.4 L (3.5-5.1) mmol/L Carbon Dioxide 19 L (22-30) mmol/L Glucose 129 H (74-99) mg/dL POC Glucose (mg/dL) 141 H (75-99) mg/dL Calcium 8.2 L (8.4-10.2) mg/dL Total Bilirubin 1.4 H (0.2-1.3) mg/dL Troponin I (0.000-0.034) ng/mL Total Protein 5.5 L (6.3-8.2) g/dL Albumin 2.7 L (3.5-5.0) g/dL Crossmatch Microbiology - Last 24 Hours (Table) 03/24/20 22:32 Blood Culture - Preliminary Blood No Growth after 24 hours 03/25/20 06:30 Urine Culture - Preliminary Urine,Voided Assessment and Plan Assessment: Metastatic small cell lung cancer: Small Cell Lung Cancer Patient of Dr. Portillo - Status POst Cycle 4 of chemotherapy with Carboplatin, BUS AND RAIL OPERATOR-16 and Tecentriq, no growth factor - Last treatment given 03/15/20 - outpatient follow-up for continuing chemotherapy/immunotherapy Severe neutropenia: High risk of neutropenic fever/sepsis - currently on broad-spectrum antibiotics, WBC count of 0.2. - patient on G-CSF acute anemia with hemoglobin of 6.4 status post PRBC transfusion. Improved to 9.8. Current hemoglobin is 8.7 platelets 16, WBC count of 0.1. Pancytopenia: Secondary to recent chemotherapy and evaluation for infection - Start Zarxio 480mcg daily - Broad Spectrum Abx - Wagner Cultures - Transfuse Hemoglobin less then 7, plt less than 15K , current platelets around 21. COPD coronary artery disease with elevated troponins electrolyte imbalance with hyponatremia and hypokalemia Current sodium 131 potassium 3.4. Adrenal Insufficiency secondary to possible tecentriq immune therapy - Decreased cortisol - Continue Methylprednisone and PPI Acute issues per primary and ICU care Thank you for allowing me to participate in the care of your patient. Florinda Franco MD Hematology Oncology [id number], [address] [place] [address] Office: [phone] Time with Patient: Greater than 30
--- NOTE | 2020-03-26 07:38 | XR ---
EXAMINATION TYPE: XR chest 1V portable DATE OF EXAM: 03/26/2020 COMPARISON: Prior chest x-ray and CT 03/25/2020 HISTORY: Lung cancer follow-up, abnormal chest x-ray TECHNIQUE: Single frontal view of the chest is obtained. FINDINGS: Probable pseudotumor within the left chest again noted. Interstitium is increased. Patient is post median sternotomy and the heart is enlarged. Minute subpleural nodule noted on CT in the lef t lateral chest is not seen with certainty. Right-sided Port-A-Cath is present via jugular approach, distal tip overlying superior vena cava. No pneumothorax. IMPRESSION: Interstitial lung disease, cardiomegaly. Pseudotumor. Indeterminate pulmonary nodule pre sent on CT not seen with certainty.
[2020-03-26] MEDS ORDERED: Magnesium Replacement Protocol 1 EACH MISC MISCELLANE PRN (07:45)
[2020-03-26] MEDS: IPRATROPIUM-ALBUTEROL 3 ML NEB INHALATION SCH ×3 (08:03→19:48)
[2020-03-26] MEDS: POTASSIUM CHLORIDE 10 MEQ in WATER FOR INJECTION 1 100ML.BAG IVPB SCH ×5 (10:17→23:08)
[2020-03-26] MEDS: FILGRASTIM-SNDZ 480 MCG/0.8 ML SYRINGE SQ SCH (10:17)
[2020-03-26] MEDS: MAGNESIUM SULFATE-D5W PMX 1 GM in DEXTROSE/WATER 1 100ML.BAG IVPB SCH ×2 (10:17→12:35)
[2020-03-26] MEDS: PANTOPRAZOLE 40 MG/10 ML VIAL IVP SCH ×2 (10:18→20:13)
[2020-03-26] MEDS: LORATADINE 10 MG TAB PO SCH (10:18)
[2020-03-26] MEDS: LISINOPRIL 10 MG TAB PO SCH (10:18)
[2020-03-26] MEDS: INSULIN ASPART (NovoLOG) 100 UNIT/ML VIAL SQ SCH ×4 (10:22→21:18)
--- NOTE | 2020-03-26 11:03 | PN ---
PROGRESS NOTE DATE OF DICTATION: March 26, 2020 Patient is a 65-year-old pleasant white female with stage IV lung cancer, undergoing chemotherapy, admitted to hospital with nausea, vomiting, and coffee-ground emesis of one day duration. She was subsequently diagnosed with febrile neutropenia, on broad- spectrum antibiotics. She is on clear liquid diet, tolerating well. Presently on Protonix 40 mg daily. Her abdominal pain has improved. No further episodes of nausea, vomiting. She denies any new symptoms today. PHYSICAL EXAMINATION: Appears comfortable, no apparent distress. VITAL SIGNS: Stable. Blood pressure is 148/91, pulse rate 100. Temperature 98.2. HEENT examination unremarkable. Conjunctivae pink. Sclerae anicteric. Oral cavity no lesions. NECK: No JVD or lymph node enlargement. CHEST: Clear to auscultation. HEART: Regular rate and rhythm. ABDOMEN: Soft. Bowel sounds are positive. No organomegaly. EXTREMITIES no pedal edema. NEURO: She is alert and oriented x3. No focal deficits. LABS: WBC 0.1, hemoglobin 8.7, platelets 16,000. BUN and creatinine are within normal limits. Ruiz virus PCR is negative. IMPRESSION: 1. Severe pancytopenia secondary to recent chemotherapy. 2. Stage IV lung cancer, undergoing chemotherapy. Last dose was last . 3. Nausea, vomiting coffee-grounds emesis all related to chemotherapy-induced gastritis, presently stable. She is status post 2 units of blood transfusion and hemoglobin is stable at 8.6 g/dL. At presentation, hemoglobin was 6.4. 4. Stage IV lung cancer. 5. Febrile neutropenia on broad-spectrum antibiotics. RECOMMENDATIONS: 1. Continue with Protonix 40 mg daily. 2. Advance diet as tolerated. 3. Continue broad-spectrum antibiotics. 4. Monitor CBC on a daily basis. 5. No plans on any endoscopy intervention. 6. We will follow with you closely. Thank you for this consultation. MMODL / IJN: [id number] /
[2020-03-26 12:06] LABS: Glucose,Whole Blood 177 mg/dL (75-99)
[2020-03-26] MEDS ORDERED: METOPROLOL TARTRATE 12.5 MG TAB PO SCH (13:00)
[2020-03-26 17:28] LABS: Glucose,Whole Blood 199 mg/dL (75-99)
--- NOTE | 2020-03-26 17:30 | PN ---
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 The patient had transfusion. Patient also had neutropenic sepsis. The patient also had confusion which is often. The patient has history of stage IV small cell lung cancer on chemotherapy. The patient was evaluated by multiple consultants including Gastroenterology, pulmonology and Hematology/Oncology. The patient is started on the Zarxio broad-spectrum antibiotics given. Cultures are negative so far. White count is 0.1 and hemoglobin 8.7 and platelets 16. Sodium 130, potassium 3.4. The most recent chest x-ray was reviewed personally by me and showed some minimal infiltrations. PAST MEDICAL HISTORY: Reviewed. REVIEW OF SYSTEMS: Could not be taken. The patient is confused. CURRENT MEDICATIONS: Noted and include: 1. Tylenol p.r.n. 2. DuoNeb q.i.d. and p.r.n. 3. Cefepime 2 grams IV q.8. 4. Benadryl 25 mg q.h.s. 5. Zarxio 480 mcg daily. 6. NovoLog scale. 7. Zestril 10 mg p.o. 8. Claritin 10 mg. 9. Ativan 0.5 mg q.8 p.r.n. 10.Solu-Medrol 60 IV q.6h. 11.Lopressor 25 mg p.o. b.i.d. 12.Magnesium protocol. 13.Narcan. 14.Protonix. 15.Compazine. PHYSICAL EXAM: Patient is alert, oriented x1. Pulse 102. Blood pressure 138/102, respiration 30, temperature 98.4, pulse ox 97% on 2 L. HEENT is conjunctivae pale. Oral mucosa moist. NECK is no jugular venous distention. No carotid bruit. No lymph node enlargement. CARDIOVASCULAR systems: S1, S2. RESPIRATION: Breath sounds diminished in the bases. A few scattered rhonchi and crackles. ABDOMEN: Soft, obese, nontender. LEGS are no edema. NERVOUS SYSTEM: No focal deficits. LABS: WBC 0.9, hemoglobin is 8.7, platelets 68. Sodium 139, potassium 3.4. Total bilirubin is 1.4. ASSESSMENT: 1. 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 2. Possible neutropenic sepsis present on admission. 3. Severe pancytopenia with anemia, leukopenia and thrombocytopenia. 4. History of a small cell lung cancer on chemotherapy from Dr. Portillo. 5. Adrenal insufficiency secondary to immune therapy possibly. 6. Chronic obstructive pulmonary disease acute exacerbation. 7. Acute blood loss anemia possibly. 8. Diffuse ST changes on the EKG. 9. Troponin 0.919 possible acute uiz-EQ-fnpohos-elevation myocardial infarction present on admission. 10.Stage IV lung cancer. 11.Hyponatremia. 12.Change in mental status, metabolic encephalopathy, multifactorial. 13.History of dysphonia. 14.History of coronary artery disease, coronary artery bypass grafting, stent. 15.History of degenerative joint disease. 16.Remote history of nicotine dependence. 17.History of ETOH. 18.FULL CODE. RECOMMENDATIONS AND DISCUSSION: Continue current medications, monitoring, and symptomatic treatment. Continue the broad-spectrum IV antibiotics. Continue with Zarxio. Continue with IV steroids. The overall prognosis guarded because of multiple complex medical issues. Further recommendations to follow. MMODL / IJN: [id number] /
[2020-03-26] MEDS: NYSTATIN 100,000 UNIT/ML SUSP 500,000 UNIT/5 ML CUP PO SCH ×2 (17:41→20:13)
[2020-03-26] MEDS: METOPROLOL TARTRATE 25 MG TAB PO SCH (20:12)
[2020-03-26] MEDS: diphenhydrAMINE 25 MG CAP PO SCH (20:13)
[2020-03-26] MEDS: ACETAMINOPHEN TAB 500 MG TAB PO SCH (20:13)
--- NOTE | 2020-03-26 20:46 | P.PN ---
Subjective Progress Note Date: 03/26/20 (Critical care time 35 minutes) Principal diagnosis: Paroxysmal atrial fibrillation Non-ST segment elevated SD/demand ischemia Severe neutropenia due to postchemotherapy Stage IV small cell lung cancer Anemia thrombocytopenia and neutropenia Elevated troponin End-stage COPD History of coronary artery disease 03/26/2020, patient seen and evaluated examined during the rounds he is she is visibly short of breath, but no overwhelming shortness breath is present denies any cough or sputum production denies any chest pain, patient had a short run of atrial fibrillation with RVR spontaneously appeared to have converted to sinus rhythm, patient to have a sinus arrhythmia, she is on 2 L oxygen breathing, still short of breath, patient remains on broad-spectrum antibiotics pending culture results and reports reviewed, so far urine and blood has been negative, white cell count is still low 0.1 with absolute neutropenia hemoglobin trending down but stable, platelet count have come down to 16,000 as well, no obvious signs of bleeding is present, cardiovascular services has been following, patient has been started on low-dose metoprolol, unfortunately other intervent ions couldn't be done including her anticoagulation or aspirin, This is a 65-year-old female who was seen eval reexamined in ICU, patient sees Dr. Guo for primary care activity, she admitted into the hospital with ongoing nausea vomiting she was found to have severe anemia, her history is sign ificant for stage IV lung cancer, also has significant history of COPD coronary artery disease history of bypass surgery as well as stent placement, she has ongoing chronic shortness of breath patient is started having nausea vomiting for 1 day, he misses appeared to be very dark, came into the hospital for further evaluation in the emergency department she was noted to have significant pancytopenia hemoglobin is only 6.4 patient admitted into the hospital for further evaluation with GI as well as oncology on consult, her chest x-ray showed a pulmonary nodule, review of the data revealed that patient has a small cell lung cancer, patient has received chemotherapy with carboplatin and OBSTETRICS NURSE PRACTITIONER-16 i t appears to be 4 cycle of chemotherapy was given mid March, patient has been found to have severe neutropenia likely related to postchemotherapy, patient currently have been started on Xanax 0 along with broad-spectrum antibiotics pending cultures are being obtained, and she is been placed on Solu-Medrol as well as PPI, currently she is on cephapirin Estefani her WBC is 0.2, after transfusion of 2 packed RBC hemoglobin improved to 9.8, platelets are 21, her troches are going up latest is 0.9, coronary virus is negative, Objective - Vital Signs Vital signs: Vital Signs Temp 98 F 03/26/20 20:00 Pulse 91 03/26/20 20:00 Resp 23 03/26/20 20:00 BP 154/88 03/26/20 20:00 Pulse Ox 98 03/26/20 20:00 Intake & Output 03/26/20 03/26/20 03/27/20 06:59 18:59 06:59 Intake Total 340 740 20 Output Total 530 665 70 Balance -190 75 -50 Weight 56.5 kg Intake: IV 240 740 20 0.9 Normal Saline @ 20mL/ 240 240 20 hr as KVO Magnesium Sulfate-D5w Pmx 100 1 gm In Dextrose/Water 1 100ml.bag @ 100 mls/hr IVPB Q1H [facility] Rx#: [id number] Potassium Chloride 10 meq 400 In Water For Injection 1 100ml.bag @ 100 mls/hr IVPB Q1HR [facility] Rx#: [id number] Intake, IV Titration 100 Amount Cefepime 2 gm In Sodium 100 Chloride 0.9% 100 ml @ 200 mls/hr IVPB Q8H [facility] Rx#:[id number] Output: Urine 530 665 70 Other: Voiding Method Indwelling Catheter Indwelling Catheter Indwelling Catheter - Exam - Constitutional General appearance: average body habitus, cooperative, disheveled, ill appearing - EENT Eyes: EOMI, PERRLA Ears: bilateral: normal - Neck Neck: normal ROM Carotids: bilateral: upstroke normal Thyroid: bilateral: normal size - Respiratory Respiratory: bilateral: CTA, diminished - Cardiovascular Rhythm: regular Heart sounds: normal: S1, S2 - Gastrointestinal General gastrointestinal: normal bowel sounds - Neurologic Neurologic: CNII-XII intact - Musculoskeletal Musculoskeletal: gait normal, generalized weakness, strength equal bilaterally - Psychiatric Psychiatric: A&O x's 3, appropriate affect, intact judgment & insight - Labs CBC & Chem 7: 03/26/20 03:43 03/26/20 03:43 Labs: Abnormal Lab Results - Last 24 Hours (Table) 03/25/20 03/26/20 03/26/20 Range/Units 21:15 03:43 03:43 WBC 0.1 L* (3.8-10.6) k/uL RBC 2.77 L (3.80-5.40) m/uL Hgb 8.7 L (11.4-16.0) gm/dL Hct 25.7 L (34.0-46.0) % RDW 15.9 H (11.5-15.5) % Plt Count 16 L* (150-450) k/uL Sodium 131 L (137-145) mmol/L Potassium 3.4 L (3.5-5.1) mmol/L Carbon Dioxide 19 L (22-30) mmol/L Glucose 129 H (74-99) mg/dL POC Glucose (mg/dL) 167 H (75-99) mg/dL Calcium 8.2 L (8.4-10.2) mg/dL Total Bilirubin 1.4 H (0.2-1.3) mg/dL Total Protein 5.5 L (6.3-8.2) g/dL Albumin 2.7 L (3.5-5.0) g/dL 03/26/20 03/26/20 03/26/20 Range/Units 06:53 12:04 17:26 WBC (3.8-10.6) k/uL RBC (3.80-5.40) m/uL Hgb (11.4-16.0) gm/dL Hct (34.0-46.0) % RDW (11.5-15.5) % Plt Count (150-450) k/uL Sodium (137-145) mmol/L Potassium (3.5-5.1) mmol/L Carbon Dioxide (22-30) mmol/L Glucose (74-99) mg/dL POC Glucose (mg/dL) 141 H 177 H 199 H (75-99) mg/dL Calcium (8.4-10.2) mg/dL Total Bilirubin (0.2-1.3) mg/dL Total Protein (6.3-8.2) g/dL Albumin (3.5-5.0) g/dL Microbiology - Last 24 Hours (Table) 03/25/20 06:30 Urine Culture - Final Urine,Voided 03/24/20 22:32 Blood Culture - Preliminary Blood No Growth after 24 hours Assessment and Plan Assessment: Paroxysmal atrial fibrillation Non-ST segment elevated SD/demand supply ischemia Severe neutropenia due to postchemotherapy Stage IV small cell lung cancer Anemia thrombocytopenia and neutropenia Elevated troponin End-stage COPD History of coronary artery disease Plan: Rate control with Lopressor Monitor electrolytes very closely and replace it Broad-spectrum antibiotics Supplemental oxygen Status post transfusion with 2 packed RBC trend hemoglobin Keep platelets over 10,000 trend platelets Zarxio is being continued for severe neutropenia postchemotherapy Continue neutropenic precautions Peptic ulcer disease prophylaxis Bronchodilators Ordered labs and chest x-ray in the morning Other recommendations pending plan of care as per clinical response of the patient
[2020-03-26 21:19] LABS: Glucose,Whole Blood 89 mg/dL (75-99)
[2020-03-26] MEDS ORDERED: POTASSIUM CHLORIDE ER 20 MEQ TAB.ER PO SCH (23:00)
--- NOTE | 2020-03-26 23:49 | P.CONS ---
History of Present Illness - Reason for Consult Consult date: 03/26/20 sepsis /covid Requesting physician: Leena Chen - Chief Complaint vomiting x 1 day - History of Present Illness Patient is a 65-year-old female with a past medical history difficult for stage IV lung cancer for the patient is currently on chemotherapy last chemo has been about 2 weeks ago patient is presenting to the ER at [facility] day before yesterday with chief complaints of nausea and vomiting that started the day of presentation to the hospital patient has more than 10 episodes of vomiting between 8 AM and noon and noticed to have dark vomit but no aneesh blood patient denies significant diarrhea; of some pain mostly epigastric area more of a burning pain on presentation the hospital up he did have low- grade fever 100.5 F patient was noticed to be neutropenic with a white count of 0.1 platelet count was 11, kidney function was normal liver enzymes were normal COVID-19 testing was negative patient did have a chest x-ray which was negative for any acute cardiopulmonary process subsequently but did have a CT of the chest abdominal x-ray shows probable pseudotumor along the fissure of the left some basal atelectasis and minimal effusion no pneumoperitoneum or intra- abdominal lesion that would be changed with the colon but no evidence of any colitis patient has been treated with cefepime Solu-Medrol infectious was consulted for further recommendation to current valve therapy and concern for sepsis/covid19. Review of Systems Positive point has been mentioned in HPI rest of the systems are negative Past Medical History Past Medical History: Cancer, COPD Additional Past Medical History / Comment(s): lost voice in April 2019 with continuing cough, Stage 4 lung CA. History of Any Multi-Drug Resistant Organisms: None Reported Past Surgical History: Coronary Bypass/CABG, Heart Catheterization With Stent, Orthopedic Surgery Additional Past Surgical History / Comment(s): cabg 04/2004, carpal tunnel ana,hip surgery repair nerve , rt rotator cuff repair Past Anesthesia/Blood Transfusion Reactions: No Reported Reaction, Family Hi story of Problems w/ Anesthesia Additional Past Anesthesia/Blood Transfusion Reaction / Comm: mother takes long time to come out of anesthesia Date of Last Stent Placement:: 08/05 Past Psychological History: No Psychological Hx Reported Smoking Status: Former smoker - Past Family History Mother Family Medical History: No Reported History Medications and Allergies Home Medications Medication Instructions Recorded Confirmed Type Aspirin 81 mg PO DAILY 12/14/19 03/24/20 History Dexamethasone [Decadron] 4 mg PO BID 12/14/19 03/24/20 History Acetaminophen/Diphenhydramine 1 tab PO HS 03/24/20 03/24/20 History [Tylenol Pm Ex-Strength Caplet] Dronabinol 5 mg PO HS 03/24/20 03/24/20 History Lisinopril [Zestril] 10 mg PO DAILY 03/24/20 03/24/20 History Prochlorperazine [Compazine] 10 mg PO Q6H PRN 03/24/20 03/24/20 History Tetracycline HCl 500 mg PO Q12H 03/24/20 03/24/20 History Allergies Allergy/AdvReac Type Severity Reaction Status Date / Time No Known Allergies Allergy Verified 03/24/20 17:02 Physical Exam Vitals: Vital Signs Temp Pulse Resp BP Pulse Ox 03/26/20 23:00 71 21 109/68 97 03/26/20 22:00 72 22 134/107 97 03/26/20 21:00 85 13 149/92 96 03/26/20 20:00 98 F 91 23 154/88 98 03/26/20 19:56 89 03/26/20 19:48 102 H 03/26/20 19:00 101 H 26 H 142/93 96 03/26/20 18:00 90 26 H 145/97 97 03/26/20 17:00 100 29 H 157/87 96 03/26/20 16:00 98.0 F 106 H 30 H 133/84 99 03/26/20 15:00 87 24 144/73 98 03/26/20 14:00 102 H 30 H 138/102 97 03/26/20 13:00 106 H 15 158/91 94 L 03/26/20 12:47 98 03/26/20 12:37 92 03/26/20 12:00 98.4 F 96 29 H 147/113 94 L 03/26/20 11:00 93 28 H 178/84 97 03/26/20 10:00 100 28 H 148/91 95 03/26/20 09:00 98 25 H 144/81 97 03/26/20 08:15 88 03/26/20 08:05 90 03/26/20 08:00 97.8 F 81 26 H 150/80 96 03/26/20 07:00 84 14 150/80 97 03/26/20 06:00 83 15 161/99 98 03/26/20 05:00 87 12 153/67 99 03/26/20 04:00 98.7 F 80 12 162/94 98 03/26/20 03:00 87 18 145/90 97 03/26/20 02:00 73 18 145/90 97 03/26/20 01:00 83 12 157/90 95 03/26/20 00:04 96 98 03/26/20 00:00 98.7 F 91 12 139/88 98 Intake and Output 03/26/20 03/26/20 03/27/20 14:59 22:59 06:59 Intake Total 460 360 120 Output Total 450 455 60 Balance 10 -95 60 Intake: IV 460 360 120 0.9 Normal Saline @ 20mL/ 160 160 20 hr as KVO Magnesium Sulfate-D5w Pmx 100 1 gm In Dextrose/Water 1 100ml.bag @ 100 mls/hr IVPB Q1H [facility] Rx#: [id number] Potassium Chloride 10 meq 200 200 100 In Water For Injection 1 100ml.bag @ 100 mls/hr IVPB Q1HR [facility] Rx#: [id number] Output: Urine 450 455 60 Other: Voiding Method Indwelling Catheter Indwelling Catheter GENERAL DESCRIPTION: Middle-aged female lying in bed, no distress. No tachypnea or accessory muscle of respiration use. HEENT: Shows Pallor , no scleral icterus. Oral mucous membrane is dry. NECK: Trachea central, no thyromegaly. LUNGS: Unlabored breathing. Decreased breath sounds at bases. No wheeze or crackle. HEART: S1, S2, regular rate and rhythm. ABDOMEN: Soft, no tenderness , guarding or rigidity EXTREMITIES: No edema of feet. SKIN: No rash, no masses palpable. NEUROLOGICAL: The patient is awake, alert, oriented x3, mood and affect normal. Results CBC & Chem 7: 03/26/20 03:43 03/26/20 21:25 Labs: Abnormal Lab Results - Last 24 Hours (Table) 03/26/20 03/26/20 03/26/20 Range/Units 03:43 03:43 06:53 WBC 0.1 L* (3.8-10.6) k/uL RBC 2.77 L (3.80-5.40) m/uL Hgb 8.7 L (11.4-16.0) gm/dL Hct 25.7 L (34.0-46.0) % RDW 15.9 H (11.5-15.5) % Plt Count 16 L* (150-450) k/uL Sodium 131 L (137-145) mmol/L Potassium 3.4 L (3.5-5.1) mmol/L Carbon Dioxide 19 L (22-30) mmol/L Glucose 129 H (74-99) mg/dL POC Glucose (mg/dL) 141 H (75-99) mg/dL Calcium 8.2 L (8.4-10.2) mg/dL Total Bilirubin 1.4 H (0.2-1.3) mg/dL Total Protein 5.5 L (6.3-8.2) g/dL Albumin 2.7 L (3.5-5.0) g/dL 03/26/20 03/26/20 Range/Units 12:04 17:26 WBC (3.8-10.6) k/uL RBC (3.80-5.40) m/uL Hgb (11.4-16.0) gm/dL Hct (34.0-46.0) % RDW (11.5-15.5) % Plt Count (150-450) k/uL Sodium (137-145) mmol/L Potassium (3.5-5.1) mmol/L Carbon Dioxide (22-30) mmol/L Glucose (74-99) mg/dL POC Glucose (mg/dL) 177 H 199 H (75-99) mg/dL Calcium (8.4-10.2) mg/dL Total Bilirubin (0.2-1.3) mg/dL Total Protein (6.3-8.2) g/dL Albumin (3.5-5.0) g/dL Microbiology - Last 24 Hours (Table) 03/25/20 06:30 Urine Culture - Final Urine,Voided 03/24/20 22:32 Blood Culture - Preliminary Blood No Growth after 24 hours Assessment and Plan Assessment: patient presented to hospital with sepsis in this patient who did have a fever tachycardia and leukopenia/neutropenia and this patient predominant symptom has been acute nausea and vomiting more for systemic features as the patient CT abdominal pelvis did not show any evidence of colitis or intra-abdominal source CT of the chest did not show the groundglass opacities normally associated with COVID-19 and the patient overall improvement on the cefepime more likely pointing towards possible bacterial infection (1) Sepsis Current Visit: Yes Status: Acute Code(s): A41.9 - SEPSIS, UNSPECIFIED ORGANISM SNOMED Code(s): 23323269 (2) Febrile neutropenia Current Visit: Yes Status: Acute Code(s): D70.9 - NEUTROPENIA, UNSPECIFIED; R50.81 - FEVER PRESENTING WITH CONDITIONS CLASSIFIED ELSEWHERE SNOMED Code(s): 974345925 Plan: 1-cefepime 2 g every 8-hour to continue with the patient seem to have clinical responded evaluated for the culture to finalize 2-we will obtain a stool studies if the patient were having any loose stools 3-IV fluids We will follow on clinical condition and cultures to further adjust medication if needed Thank you for this consultation we will follow the patient along with you Time with Patient: Greater than 30
[2020-03-27] MEDS: POTASSIUM CHLORIDE 10 MEQ in WATER FOR INJECTION 1 100ML.BAG IVPB SCH (00:10)
[2020-03-27 04:30] LABS: HCT 25.9 % (34.0-46.0); HGB 8.6 gm/dL (11.4-16.0); MCH 30.6 pg (25.0-35.0); MCHC 33.3 g/dL (31.0-37.0); MCV 91.8 fL (80.0-100.0); Mean Platelet Volume 7.5; RBC 2.82 m/uL (3.80-5.40); RDW 15.6 % (11.5-15.5)
[2020-03-27 04:40] LABS: WBC 0.2 k/uL (3.8-10.6)
[2020-03-27 04:41] LABS: Platelet Count 4 k/uL (150-450)
[2020-03-27 04:56] LABS: African American GFR (CKD) >90 (>60 ml/min/1.73 sqM); Anion Gap 7 mmol/L; Blood Urea Nitrogen 15 mg/dL (7-17); Calcium 8.4 mg/dL (8.4-10.2); Carbon Dioxide 20 mmol/L (22-30); Chloride 102 mmol/L (98-107); Glucose 102 mg/dL (74-99); Magnesium 2.1 mg/dL (1.6-2.3); Non-African American GFR(CKD) 78 (>60 ml/min/1.73 sqM); Potassium 4.1 mmol/L (3.5-5.1); Sodium 129 mmol/L (137-145)
--- NOTE | 2020-03-27 05:45 | P.PN ---
Subjective Progress Note Date: 03/26/20 Patient examined on 26 March Patient is resting comfortably in bed. She denies any chest discomfort. She was initially admitted to the hospital with nausea vomiting and found to be severely anemic. She is pancytopenic hemoglobin 6.4. She has a history of lung cancer status post chemotherapy. She received packed red cells, coronavirus negative White count 0.1, platelet count 16,000, hemoglobin 8.7 Sodium 131 potassium 3.4 On examination breath sounds are reduced on account of poor respiratory effort Soft heart sounds Abdomen soft nontender no extremity edema No JVD Blood pressure 126/90 mmHg pulse rate in the 70s Plan From a cardiac standpoint continue lisinopril and metoprolol and statins Prognosis poor Medical management of non-Q-wave IN Please call as needed Objective - Vital Signs Vital signs: Vital Signs Temp 97.5 F L 03/27/20 04:00 Pulse 71 03/27/20 05:00 Resp 18 03/27/20 05:00 BP 128/106 03/27/20 05:00 Pulse Ox 97 03/27/20 05:00 Intake & Output 03/26/20 03/26/20 03/27/20 06:59 18:59 06:59 Intake Total 340 740 400 Output Total 530 665 585 Balance -190 75 -185 Weight 56.5 kg 61 kg Intake: IV 240 740 400 0.9 Normal Saline @ 20mL/ 240 240 200 hr as KVO Magnesium Sulfate-D5w Pmx 100 1 gm In Dextrose/Water 1 100ml.bag @ 100 mls/hr IVPB Q1H [facility] Rx#: [id number] Potassium Chloride 10 meq 400 200 In Water For Injection 1 100ml.bag @ 100 mls/hr IVPB Q1HR [facility] Rx#: [id number] Intake, IV Titration 100 Amount Cefepime 2 gm In Sodium 100 Chloride 0.9% 100 ml @ 200 mls/hr IVPB Q8H [facility] Rx#:[id number] Output: Urine 530 665 585 Other: Voiding Method Indwelling Catheter Indwelling Catheter Indwelling Catheter - Labs CBC & Chem 7: 03/27/20 04:20 03/27/20 04:20 Labs: Abnormal Lab Results - Last 24 Hours (Table) 03/26/20 03/26/20 03/26/20 Range/Units 06:53 12:04 17:26 WBC (3.8-10.6) k/uL RBC (3.80-5.40) m/uL Hgb (11.4-16.0) gm/dL Hct (34.0-46.0) % RDW (11.5-15.5) % Plt Count (150-450) k/uL Sodium (137-145) mmol/L Carbon Dioxide (22-30) mmol/L Glucose (74-99) mg/dL POC Glucose (mg/dL) 141 H 177 H 199 H (75-99) mg/dL 03/27/20 03/27/20 Range/Units 04:20 04:20 WBC 0.2 L* (3.8-10.6) k/uL RBC 2.82 L (3.80-5.40) m/uL Hgb 8.6 L (11.4-16.0) gm/dL Hct 25.9 L (34.0-46.0) % RDW 15.6 H (11.5-15.5) % Plt Count 4 L* D (150-450) k/uL Sodium 129 L (137-145) mmol/L Carbon Dioxide 20 L (22-30) mmol/L Glucose 102 H (74-99) mg/dL POC Glucose (mg/dL) (75-99) mg/dL Microbiology - Last 24 Hours (Table) 03/24/20 22:32 Blood Culture - Preliminary Blood No Growth after 48 hours 03/25/20 06:30 Urine Culture - Final Urine,Voided
--- NOTE | 2020-03-27 05:49 | P.CRDCN ---
History of Present Illness History of present illness: Tabitha Osorio This is Dr. Rock dictating a consult on this patient The patient was interviewed and examined by me IMPRESSION / ASSESSMENT: Likely non-Q-wave myocardial infarction with abnormal troponins and abnormal ECG Underlying lung cancer and GI bleeding with a hemoglobin of 6.9 today Pancytopenia secondary to chemotherapy Known CAD and coronary artery bypa PLAN: Continue lisinopril metoprolol and statins No aspirin Medical management of nction in the sett and cytopenia post chemotherapy HPI Patient with stage IV lung cancer presenting with nausea vomiting. She also had hematemesis Twelve-lead ECG shows sinus rhythm with deep T-wave inversions V1 through V6 and ST depression and T-wave inversion, mild in high lateral leads She is pancytopenic has an upper GI bleed History of coronary artery disease status post coronary artery bypass grafting and a history of dysphonia Abnormal troponins of 0.06 and 0.8 ROS: No fever chills or rigors, no cough, phlegm or expectoration, no nausea, vomiting or diarrhea, no hematuria, dysuria, no musculoskeletal complaints, no strokes or seizures, no skin lesions. EXAMINATION: Patient appears very dusky colored Dysphonia Reduce breath sounds ana Heart sounds are soft no murmurs Abdomen is soft Extremi REVIEW OF LABS, ECG & MEDICAL DATA Labs are reviewed and white count is 0.2 Sodium 132 potassium 3.1 BUN 15 creatinine 0.8 Past Medical History Past Medical History: Cancer, COPD Additional Past Medical History / Comment(s): lost voice in April 2019 with continuing cough, Stage 4 lung CA. History of Any Multi-Drug Resistant Organisms: None Reported Past Surgical History: Coronary Bypass/CABG, Heart Catheterization With Stent, Orthopedic Surgery Additional Past Surgical History / Comment(s): cabg 04/2004, carpal tunnel ana,hip surgery repair nerve , rt rotator cuff repair Past Anesthesia/Blood Transfusion Reactions: No Reported Reaction, Family History of Problems w/ Anesthesia Additional Past Anesthesia/Blood Transfusion Reaction / Comment(s): mother takes long time to come out of anesthesia Date of Last Stent Placement:: 08/05 Past Psychological History: No Psychological Hx Reported Smoking Status: Former smoker - Past Family History Mother Family Medical History: No Reported History Medications and Allergies Home Medications Medication Instructions Recorded Confirmed Type Aspirin 81 mg PO DAILY 12/14/19 03/24/20 History Dexamethasone [Decadron] 4 mg PO BID 12/14/19 03/24/20 History Acetaminophen/Diphenhydramine 1 tab PO HS 03/24/20 03/24/20 History [Tylenol Pm Ex-Strength Caplet] Dronabinol 5 mg PO HS 03/24/20 03/24/20 History Lisinopril [Zestril] 10 mg PO DAILY 03/24/20 03/24/20 History Prochlorperazine [Compazine] 10 mg PO Q6H PRN 03/24/20 03/24/20 History Tetracycline HCl 500 mg PO Q12H 03/24/20 03/24/20 History Allergies Allergy/AdvReac Type Severity Reaction Status Date / Time No Known Allergies Allergy Verified 03/24/20 17:02 Physical Exam Vitals: Vital Signs Temp Pulse Resp BP Pulse Ox 03/25/20 12:11 97.6 F 80 16 161/81 99 03/25/20 12:02 94 03/25/20 12:00 97.6 F 79 16 168/95 98 03/25/20 11:38 92 03/25/20 11:00 75 15 162/85 99 03/25/20 10:00 84 21 156/81 97 03/25/20 09:39 97.9 F 76 22 156/81 99 03/25/20 09:09 97.1 F L 80 20 163/84 97 03/25/20 09:00 81 22 158/88 98 03/25/20 08:59 97.1 F L 80 20 158/88 97 03/25/20 08:19 104 H 03/25/20 08:06 82 03/25/20 08:00 97.1 F L 77 16 165/98 98 03/25/20 07:00 87 12 161/86 96 03/25/20 06:00 73 20 155/99 99 03/25/20 05:00 71 18 137/86 99 03/25/20 04:00 98.9 F 74 20 144/88 99 03/25/20 03:00 76 18 151/81 98 03/25/20 02:00 110 H 22 115/75 95 03/25/20 01:00 82 17 125/82 98 03/25/20 00:00 98.9 F 98 14 170/84 95 03/24/20 23:23 97.9 F 83 22 158/88 98 05/23/20 23:00 93 18 178/77 98 03/24/20 22:00 92 12 169/86 99 03/24/20 21:00 90 12 178/83 98 03/24/20 20:03 98.9 F 107 H 18 172/65 99 03/24/20 20:00 99.3 F 81 20 159/89 97 03/24/20 19:33 100.3 F H 110 H 18 143/79 03/24/20 19:30 104 H 14 143/79 98 03/24/20 19:23 110 H 18 159/89 03/24/20 19:19 100.5 F H 03/24/20 19:17 113 H 18 143/79 03/24/20 19:00 112 H 18 136/76 97 03/24/20 18:30 111 H 17 143/77 97 03/24/20 18:00 112 H 16 150/76 99 03/24/20 17:30 120 H 17 152/76 99 03/24/20 17:00 94 17 143/74 100 03/24/20 16:30 94 15 139/71 100 03/24/20 16:00 17 143/72 100 03/24/20 15:30 95 16 143/74 100 03/24/20 15:00 156/67 99 03/24/20 14:33 97.7 F 101 H 16 156/67 96 Intake and Output 03/24/20 03/25/20 03/25/20 22:59 06:59 14:59 Intake Total 0 715 1030 Output Total 0 0 950 Balance 0 715 80 Intake: IV 100 60 0.9 Normal Saline 100 60 Intake, IV Titration 50 Amount Potassium Chloride 20 meq 50 In Water For Injection 1 100ml.bag @ 50 mls/hr IVPB Q2H [facility] Rx#: [id number] Blood Product 0 615 920 Platelet Irr Pheresis 305 Acda1 Unit [id number] Rc As-1 Unit 310 [id number] Rc As-3 Unit 0 310 [id number] Output: Urine 0 0 950 Other: # Voids 2 0 Weight 57.2 kg 58 kg Results 03/27/20 04:20 03/27/20 04:20 Cardiac Enzymes 03/24/20 03/24/20 03/24/20 Range/Units 15:38 15:38 22:32 AST 21 (14-36) U/L Troponin I <0.012 0.067 H* (0.000-0.034) ng/mL 03/25/20 Range/Units 04:41 AST (14-36) U/L Troponin I 0.877 H* (0.000-0.034) ng/mL Coagulation 03/24/20 Range/Units 15:38 PT 10.4 (9.0-12.0) sec APTT 22.4 (22.0-30.0) sec CBC 03/24/20 03/24/20 03/25/20 Range/Units 15:38 22:32 04:41 WBC 0.1 L* 0.2 L* 0.1 L* (3.8-10.6) k/uL RBC 2.01 L 2.72 L 2.22 L (3.80-5.40) m/uL Hgb 6.4 L* 8.5 L D 6.9 L* D (11.4-16.0) gm/dL Hct 18.7 L* 25.3 L 20.0 L (34.0-46.0) % Plt Count 11 L* 20 L D 27 L (150-450) k/uL Comprehensive Metabolic Panel 03/24/20 03/25/20 Range/Units 15:38 04:41 Sodium 132 L 132 L (137-145) mmol/L Potassium 3.5 3.1 L (3.5-5.1) mmol/L Chloride 98 105 (98-107) mmol/L Carbon Dioxide 23 20 L (22-30) mmol/L BUN 19 H 15 (7-17) mg/dL Creatinine 1.02 0.82 (0.52-1.04) mg/dL Glucose 93 79 (74-99) mg/dL Calcium 8.7 8.0 L (8.4-10.2) mg/dL AST 21 (14-36) U/L ALT 23 (4-34) U/L Alkaline Phosphatase 78 (38-126) U/L Total Protein 6.3 (6.3-8.2) g/dL Albumin 3.4 L (3.5-5.0) g/dL Current Medications Generic Name Dose Route Start Last Admin Trade Name Freq PRN Reason Stop Dose Admin Acetaminophen 500 mg 03/24/20 21:00 03/25/20 00:10 Tylenol Tab PO 500 mg HS [facility] Administration Albuterol/Ipratropium 3 ml 03/25/20 08:00 03/25/20 11:38 Duoneb 0.5 Mg-3 Mg/3 Ml Soln INHALATION 3 ml RT-TID [facility] Administration Albuterol/Ipratropium 3 ml 03/24/20 20:16 Duoneb 0.5 Mg-3 Mg/3 Ml Soln INHALATION RT-TID PRN Shortness Of Breath Or Wheezing Diphenhydramine HCl 25 mg 03/24/20 21:00 03/25/20 00:10 Benadryl PO 25 mg HS [facility] Administration Filgrastim 480 mcg 03/25/20 11:00 Zarxio SQ DAILY [facility] Cefepime HCl 2 gm/ Sodium 100 mls @ 200 mls/hr 03/24/20 21:00 03/25/20 05:35 Chloride IVPB 200 mls/hr Q8H [facility] Administration Insulin Aspart 0 unit 03/24/20 21:00 03/25/20 12:13 Novolog SQ Not Given ACHS [facility] Protocol Loratadine 10 mg 03/25/20 11:15 Claritin PO DAILY [facility] Lorazepam 0.5 mg 03/24/20 20:17 Ativan PO Q8HR PRN Anxiety Methylprednisolone Sodium Succinate 60 mg 03/24/20 20:30 03/25/20 05:40 Solu-Medrol IV 60 mg Q6HR [facility] Administration Miscellaneous Information 1 each 03/25/20 05:41 Potassium Per Protocol MISCELLANE DAILY PRN Per Protocol Protocol Naloxone HCl 0.2 mg 03/24/20 17:02 Narcan IV Q2M PRN Opioid Reversal Pantoprazole Sodium 40 mg 03/25/20 09:00 Protonix IVP BID [facility] Prochlorperazine Maleate 10 mg 03/24/20 20:16 Compazine PO Q6H PRN Nausea And Vomiting Intake and Output 03/24/20 03/25/20 03/25/20 22:59 06:59 14:59 Intake Total 0 715 1030 Output Total 0 0 950 Balance 0 715 80 Intake: IV 100 60 0.9 Normal Saline 100 60 Intake, IV Titration 50 Amount Potassium Chloride 20 meq 50 In Water For Injection 1 100ml.bag @ 50 mls/hr IVPB Q2H [facility] Rx#: [id number] Blood Product 0 615 920 Platelet Irr Pheresis 305 Acda1 Unit [id number] Rc As-1 Unit 310 [id number] Rc As-3 Unit 0 310 [id number] Output: Urine 0 0 950 Other: # Voids 2 0 Weight 57.2 kg 58 kg 03/25/20 04:41 03/25/20 04:41
[2020-03-27] MEDS: CEFEPIME 2 GM in SODIUM CHLORIDE 0.9% 100 ML IVPB SCH ×3 (06:39→23:12)
[2020-03-27] MEDS: methylPREDNISolone SOD SUCCI 125 MG/2 ML VIAL IV SCH ×4 (06:39→23:12)
[2020-03-27] MEDS: INSULIN ASPART (NovoLOG) 100 UNIT/ML VIAL SQ SCH ×4 (06:42→20:12)
[2020-03-27 06:43] LABS: Glucose,Whole Blood 105 mg/dL (75-99)
[2020-03-27] MEDS: IPRATROPIUM-ALBUTEROL 3 ML NEB INHALATION SCH ×3 (07:14→20:05)
--- NOTE | 2020-03-27 08:15 | XR ---
EXAMINATION TYPE: XR chest 1V portable DATE OF EXAM: 03/27/2020 COMPARISON: 03/26/2020 HISTORY: Shortness of breath TECHNIQUE: Single frontal view of the chest is obtained. FINDINGS: Patchy left suprahilar airspace disease and right infrahilar airspace disease are new. Rig ht-sided Mediport is noted. Multiple subcentimeter pulmonary nodules seen on prior CT are not definit ively visualized on chest x-ray and should be followed with CT. Very trace left pleural effusion blun ts the costophrenic angle. No new pneumothorax. IMPRESSION: Patchy left suprahilar and right infrahilar opacities are new and may represent atelecta sis or developing pneumonia. The known subcentimeter pulmonary nodules are not well visualized on x-r ay.
[2020-03-27] MEDS: METOPROLOL TARTRATE 25 MG TAB PO SCH ×2 (08:17→19:59)
[2020-03-27] MEDS: PANTOPRAZOLE 40 MG/10 ML VIAL IVP SCH ×2 (08:17→19:58)
[2020-03-27] MEDS: LORATADINE 10 MG TAB PO SCH (08:17)
[2020-03-27] MEDS: FILGRASTIM-SNDZ 480 MCG/0.8 ML SYRINGE SQ SCH (08:17)
[2020-03-27] MEDS: NYSTATIN 100,000 UNIT/ML SUSP 500,000 UNIT/5 ML CUP PO SCH ×4 (08:17→19:59)
--- NOTE | 2020-03-27 11:00 | ECHOF ---
Referral Reason:st-t changes MEASUREMENTS -------- HEIGHT: 157.5 cm WEIGHT: 60.8 kg BP: 110/52 IVSd: 1.1 cm (0.6 - 1.1) LVIDd: 4.6 cm (3.9 - 5.3) LVPWd: 1.1 cm (0.6 - 1.1) IVSs: 1.5 cm LVIDs: 3.8 cm LVPWs: 1.5 cm LA Diam: 3.6 cm (2.7 - 3.8) RVIDd: 3.0 cm (< 3.3) LAESV Index (A-L): 35.15 ml/m Ao Diam: 3.1 cm (2.0 - 3.7) AV Cusp: 1.3 cm (1.5 - 2.6) EPSS: 1.4 cm MV E Messi: 0.66 m/s MV DecT: 162 ms MV A Messi: 0.39 m/s MV E/A Ratio: 1.71 RAP: 15.00 mmHg RVSP: 43.26 mmHg MV EF SLOPE: 52.44 mm/s (70 - 150) MV EXCURSION: 12.04 mm (> 18.000) FINDINGS -------- Sinus rhythm. This was a technically adequate study. HX of CABG The left ventricular size is normal. There is borderline concentric left ventricular hypertrophy. Overall left ventricular systolic function is severely impaired with, an EF between 25 - 30 %. Bas al inferior LV wall motion is hypokinetic. Basal inferoseptal LV wall motion is hypokinetic. Mi d inferior LV wall motion is hypokinetic. Mid inferoseptal LV wall motion is hypokinetic. Apica l inferior LV wall motion is hypokinetic. Apical septum LV wall motion is hypokinetic. The right ventricle is normal in size. LA is moderately dilated 34-39 ml/m2 The right atrium is normal in size. Interatrial and interventricular septum intact. There is mild aortic valve sclerosis. Mild mitral annular calcification present. Moderate mitral regurgitation is present. Mild tricuspid regurgitation present. There is mild pulmonary hypertension. The right ventricular systolic pressure, as measured by Doppler, is 43.26mmHg. Trace/mild (physiologic) pulmonic regurgitation. The aortic root size is normal. The inferior vena cava is dilated with poor inspiratory collapse which is consistent with estimated r ight atrial pressure of 15 mmHg. There is no pericardial effusion. CONCLUSIONS -------- 1. Sinus rhythm. 2. This was a technically adequate study. 3. HX of CABG 4. The left ventricular size is normal. 5. There is borderline concentric left ventricular hypertrophy. 6. Overall left ventricular systolic function is severely impaired with, an EF between 25 - 30 %. 7. Basal inferior LV wall motion is hypokinetic. 8. Basal inferoseptal LV wall motion is hypokinetic. 9. Mid inferior LV wall motion is hypokinetic. 10. Mid inferoseptal LV wall motion is hypokinetic. 11. Apical inferior LV wall motion is hypokinetic. 12. Apical septum LV wall motion is hypokinetic. 13. The right ventricle is normal in size. 14. LA is moderately dilated 34-39 ml/m2 15. The right atrium is normal in size. 16. Interatrial and interventricular septum intact. 17. There is mild aortic valve sclerosis. 18. Mild mitral annular calcification present. 19. Moderate mitral regurgitation is present. 20. Mild tricuspid regurgitation present. 21. There is mild pulmonary hypertension. 22. The right ventricular systolic pressure, as measured by Doppler, is 43.26mmHg. 23. Trace/mild (physiologic) pulmonic regurgitation. 24. The aortic root size is normal. 25. The inferior vena cava is dilated with poor inspiratory collapse which is consistent with estimat ed right atrial pressure of 15 mmHg. 26. There is no pericardial effusion. FIRST AID ATTENDANT: Jenny Reyna RDCS
[2020-03-27 11:55] LABS: Glucose,Whole Blood 82 mg/dL (75-99)
[2020-03-27] MEDS ORDERED: ALPRAZolam 0.25 MG TAB PO PRN (11:58)
[2020-03-27] MEDS: LISINOPRIL 10 MG TAB PO SCH (12:06)
--- NOTE | 2020-03-27 12:50 | P.PN ---
Subjective Progress Note Date: 03/27/20 Principal diagnosis: Paroxysmal atrial fibrillation Non-ST segment elevated AR/demand ischemia Severe neutropenia due to postchemotherapy Thrombocytopenia Severe anemia Stage IV small cell lung cancer Elevated troponin End-stage COPD History of coronary artery disease Mar 27 2020, patient seen and evaluated in ICU still short of breath while, patient is on 2 L oxygen awake and alert slightly anxious, patient will be given some Xanax also has received some Ativan for anxiety, denies any chest pain denies any cough or sputum production, complain of weakness and overall not feeling well, remains afebrile with stable hemodynamics, labs reviewed white cell count is slightly off of 0.2 hemoglobin stable at 8.6, platelets continued to trend down latest is 4000 only, patient is to be transfused with 2 unit of platelets, cultures so far has been negative, patient cultures have been negative remains on broad-spectrum antibiotic and steroids 03/26/2020, patient seen and evaluated examined during the rounds he is she is visibly short of breath, but no overwhelming shortness breath is present denies any cough or sputum production denies any chest pain, patient had a short run of atrial fibrillation with RVR spontaneously appeared to have converted to sinus rhythm, patient to have a sinus arrhythmia, she is on 2 L oxygen breathing, still short of breath, patient remains on broad-spectrum antibiotics pending culture results and reports reviewed, so far urine and blood has been negative, white cell count is still low 0.1 with absolute neutropenia hemoglobin trending down but stable, platelet count have come down to 16,000 as well, no obvious signs of bleeding is present, cardiovascular services has been following, patient has been started on low-dose metoprolol, unfortunately other interventions couldn't be done including her anticoagulation or aspirin, This is a 65-year-old female who was seen eval reexamined in ICU, patient sees Dr. Guo for primary care activity, she admitted into the hospital with ongoing nausea vomiting she was found to have severe anemia, her history is significant for stage IV lung cancer, also has significant history of COPD coronary artery disease history of bypass surgery as well as stent placement, she has ongoing chronic shortness of breath patient is started having nausea vomiting for 1 day, he misses appeared to be very dark, came into the hospital for further evaluation in the emergency department she was noted to have significant pancytopenia hemoglobin is only 6.4 patient admitted into the hosp ital for further evaluation with GI as well as oncology on consult, her chest x- ray showed a pulmonary nodule, review of the data revealed that patient has a small cell lung cancer, patient has received chemotherapy with carboplatin and [employer]ATE-16 it appears to be 4 cycle of chemotherapy was given mid March, patient has been found to have severe neutropenia likely related to postchemotherapy, patient currently have been started on Xanax 0 along with broad-spectrum antibiotics pending cultures are being obtained, and she is been placed on Solu- Medrol as well as PPI, currently she is on cephapirin Estefani her WBC is 0.2, after transfusion of 2 packed RBC hemoglobin improved to 9.8, platelets are 21, her troches are going up latest is 0.9, coronary virus is negative, Objective - Vital Signs Vital signs: Vital Signs Temp 97.6 F 03/27/20 08:00 Pulse 88 03/27/20 11:06 Resp 16 03/27/20 09:00 BP 110/52 03/27/20 09:00 Pulse Ox 95 03/27/20 09:00 Intake & Output 03/26/20 03/27/20 03/27/20 18:59 06:59 18:59 Intake Total 740 440 80 Output Total 665 650 150 Balance 75 -210 -70 Weight 61 kg Intake: IV 740 440 80 0.9 Normal Saline @ 20mL/ 240 240 80 hr as KVO Magnesium Sulfate-D5w Pmx 100 1 gm In Dextrose/Water 1 100ml.bag @ 100 mls/hr IVPB Q1H ESTEBAN Rx#: [id number] Potassium Chloride 10 meq 400 200 In Water For Injection 1 100ml.bag @ 100 mls/hr IVPB Q1HR ESTEBAN Rx#: [id number] Output: Urine 665 650 150 Other: Voiding Method Indwelling Catheter Indwelling Catheter Indwelling Catheter - Exam - Constitutional General appearance: average body habitus, cooperative, disheveled, ill appearing - EENT Eyes: EOMI, PERRLA Ears: bilateral: normal - Neck Neck: normal ROM Carotids: bilateral: upstroke normal Thyroid: bilateral: normal size - Respiratory Respiratory: bilateral: CTA, diminished - Cardiovascular Rhythm: regular Heart sounds: normal: S1, S2 - Gastrointestinal General gastrointestinal: normal bowel sounds - Neurologic Neurologic: CNII-XII intact - Musculoskeletal Musculoskeletal: gait normal, generalized weakness, strength equal bilaterally - Psychiatric Psychiatric: A&O x's 3, appropriate affect, intact judgment & insight - Labs CBC & Chem 7: 03/27/20 04:20 03/27/20 04:20 Labs: Abnormal Lab Results - Last 24 Hours (Table) 03/26/20 03/27/20 03/27/20 Range/Units 17:26 04:20 04:20 WBC 0.2 L* (3.8-10.6) k/uL RBC 2.82 L (3.80-5.40) m/uL Hgb 8.6 L (11.4-16.0) gm/dL Hct 25.9 L (34.0-46.0) % RDW 15.6 H (11.5-15.5) % Plt Count 4 L* D (150-450) k/uL Sodium 129 L (137-145) mmol/L Carbon Dioxide 20 L (22-30) mmol/L Glucose 102 H (74-99) mg/dL POC Glucose (mg/dL) 199 H (75-99) mg/dL 03/27/20 Range/Units 06:42 WBC (3.8-10.6) k/uL RBC (3.80-5.40) m/uL Hgb (11.4-16.0) gm/dL Hct (34.0-46.0) % RDW (11.5-15.5) % Plt Count (150-450) k/uL Sodium (137-145) mmol/L Carbon Dioxide (22-30) mmol/L Glucose (74-99) mg/dL POC Glucose (mg/dL) 105 H (75-99) mg/dL Microbiology - Last 24 Hours (Table) 03/24/20 22:32 Blood Culture - Preliminary Blood No Growth after 48 hours 03/25/20 06:30 Urine Culture - Final Urine,Voided Assessment and Plan Assessment: Severe thrombocytopenia Paroxysmal atrial fibrillation Non-ST segment elevated AR/demand supply ischemia Severe neutropenia due to postchemotherapy Stage IV small cell lung cancer Anemia thrombocytopenia and neutropenia Elevated troponin End-stage COPD History of coronary artery disease Plan: Transfuse with 2 units of platelets Rate control with Lopressor Monitor electrolytes very closely and replace it Broad-spectrum antibiotics Supplemental oxygen Status post transfusion with 2 packed RBC trend hemoglobin Keep platelets over 10,000 trend platelets Carenrxio is being continued for severe neutropenia postchemotherapy Continue neutropenic precautions Peptic ulcer disease prophylaxis Bronchodilators Ordered labs and chest x-ray in the morning Continue antianxiety agents and Other recommendations pending plan of care as per clinical response of the patient Time with Patient: Greater than 30
--- NOTE | 2020-03-27 13:46 | PN ---
PROGRESS NOTE DATE OF SERVICE: 03/27/2020 Patient is a 65-year-old pleasant white female admitted to hospital with severe febrile neutropenia, abdominal pain, nausea, vomiting, and coffee-ground emesis. She is feeling much better. She received 2 units of PRBC transfusion. Hemoglobin stable at 8.7 g/dL. She reports no abdominal pain. On a regular diet, tolerating, but eating small portions. No rectal bleeding or melena. PHYSICAL EXAMINATION: In no apparent distress. VITAL SIGNS: Blood pressure 110/52, pulse 87, temperature 97.6. HEENT: Examination unremarkable, conjunctivae are pink, sclerae nonicteric, oral cavity no lesions. CHEST: Clear to auscultation. HEART: Regular rate and rhythm. ABDOMEN: Soft. Bowel sounds are positive. EXTREMITIES: No pedal edema. NEURO: She is alert, oriented to name and time. LABS: WBC 2.2, hemoglobin 8.6, platelets 4000. Basic metabolic panel is within normal limits. IMPRESSION: 1. Nausea and vomiting, abdominal pain and coffee-grounds emesis, resolved, probably chemo-induced gastritis, on Protonix 40 mg daily, doing well. 2. Febrile neutropenia on broad-spectrum antibiotics. She remains afebrile. 3. Pancytopenia from chemotherapy induced. 4. Stage IV lung cancer, undergoing chemotherapy. RECOMMENDATION: 1. Continue with Protonix 40 mg daily. 2. Regular diet. 3. Small frequent meals. 4. Continue broad-spectrum antibiotics. 5. Continue symptomatic and supportive care. 6. Will follow with you closely. Thank you for this consultation. MMODL / IJN: [id number] /
--- NOTE | 2020-03-27 14:30 | P.PN ---
<Ashlie Chávez - Last Filed: 03/27/20 19:36> Subjective Progress Note Date: 03/27/20 Principal diagnosis: Lung Cancer on Treatment, Pancytopenia Platelets are 4K today, SOdium 129, Objective - Vital Signs Vital signs: Vital Signs Temp 98.5 F 03/27/20 12:00 Pulse 108 H 03/27/20 14:00 Resp 26 H 03/27/20 14:00 BP 159/118 03/27/20 14:00 Pulse Ox 95 03/27/20 14:00 Intake & Output 03/26/20 03/27/20 03/27/20 18:59 06:59 18:59 Intake Total 740 440 240 Output Total 665 650 265 Balance 75 -210 -25 Weight 61 kg Intake: IV 740 440 240 0.9 Normal Saline @ 20mL/ 240 240 140 hr as KVO Cefepime 2 gm In Sodium 100 Chloride 0.9% 100 ml @ 200 mls/hr IVPB Q8H ESTEBAN Rx#:[id number] Magnesium Sulfate-D5w Pmx 100 1 gm In Dextrose/Water 1 100ml.bag @ 100 mls/hr IVPB Q1H ESTEBAN Rx#: [id number] Potassium Chloride 10 meq 400 200 In Water For Injection 1 100ml.bag @ 100 mls/hr IVPB Q1HR ESTEBAN Rx#: [id number] Blood Product 0 Platelet Pheresis Acda1 0 Unit [id number] Output: Urine 665 650 265 Other: Voiding Method Indwelling Catheter Indwelling Catheter Indwelling Catheter - Exam - Constitutional General appearance: average body habitus, cooperative, disheveled, ill appearing - EENT Eyes: EOMI, PERRLA Ears: bilateral: normal - Neck Neck: normal ROM Carotids: bilateral: upstroke normal Thyroid: bilateral: normal size - Respiratory Respiratory: bilateral: CTA, diminished - Cardiovascular Rhythm: regular Heart sounds: normal: S1, S2 - Gastrointestinal General gastrointestinal: normal bowel sounds - Neurologic Neurologic: CNII-XII intact - Musculoskeletal Musculoskeletal: gait normal, generalized weakness, strength equal bilaterally - Psychiatric Psychiatric: A&O x's 3, appropriate affect, intact judgment & insight - Labs CBC & Chem 7: 03/27/20 04:20 03/27/20 04:20 Labs: Abnormal Lab Results - Last 24 Hours (Table) 03/24/20 03/26/20 03/27/20 Range/Units 15:38 17:26 04:20 WBC 0.2 L* (3.8-10.6) k/uL RBC 2.82 L (3.80-5.40) m/uL Hgb 8.6 L (11.4-16.0) gm/dL Hct 25.9 L (34.0-46.0) % RDW 15.6 H (11.5-15.5) % Plt Count 4 L* D (150-450) k/uL Sodium (137-145) mmol/L Carbon Dioxide (22-30) mmol/L Glucose (74-99) mg/dL POC Glucose (mg/dL) 199 H (75-99) mg/dL Crossmatch See Detail 03/27/20 03/27/20 Range/Units 04:20 06:42 WBC (3.8-10.6) k/uL RBC (3.80-5.40) m/uL Hgb (11.4-16.0) gm/dL Hct (34.0-46.0) % RDW (11.5-15.5) % Plt Count (150-450) k/uL Sodium 129 L (137-145) mmol/L Carbon Dioxide 20 L (22-30) mmol/L Glucose 102 H (74-99) mg/dL POC Glucose (mg/dL) 105 H (75-99) mg/dL Crossmatch Microbiology - Last 24 Hours (Table) 03/24/20 22:32 Blood Culture - Preliminary Blood No Growth after 48 hours 03/25/20 06:30 Urine Culture - Final Urine,Voided Assessment and Plan Plan: Assessment and Plan Assessment: Metastatic small cell lung cancer: Small Cell Lung Cancer Patient of Dr. Portillo - Status POst Cycle 4 of chemotherapy with Carboplatin, [employer]-16 and Tecentriq, no growth factor - Last treatment given 03/15/20 - Outpatient follow-up for continuing chemotherapy/immunotherapy Severe neutropenia: High risk of neutropenic fever/sepsis - currently on broad-spectrum antibiotics, WBC count of 0.2. - Continue patient on G-CSF Pancytopenia: Secondary to recent chemotherapy - Current hemoglobin is 8.6 no transfusion required - Platelets 4K, One unit of SDP today - WBC count of 0.2 Continue Zarxio. - Zarxio 480mcg daily - Broad Spectrum Abx - Wagner Cultures - Transfuse Hemoglobin less then 7, plt less than 15K COPD Coronary artery disease with elevated troponins NSTEMI Electrolyte imbalance with hyponatremia and hypokalemia - Sodium 129 Adrenal Insufficiency secondary to possible tecentriq immune therapy - Decreased cortisol Stable - Continue Methylprednisone and PPI Acute issues per primary and ICU care Physician Attest: I have completed the full history and physcial and agree with above dictation, dictated as a scribe <Marcio Melton - Last Filed: 03/27/20 23:12> Objective - Vital Signs Vital signs: Vital Signs Temp 98.5 F 03/27/20 20:32 Pulse 75 03/27/20 23:00 Resp 20 03/27/20 23:00 BP 140/98 03/27/20 23:00 Pulse Ox 95 03/27/20 23:00 Intake & Output 03/27/20 03/27/20 03/28/20 06:59 18:59 06:59 Intake Total 440 340 244 Output Total 650 375 75 Balance -210 -35 169 Weight 61 kg Intake: IV 440 340 40 0.9 Normal Saline @ 20mL/ 240 240 40 hr as KVO Cefepime 2 gm In Sodium 100 Chloride 0.9% 100 ml @ 200 mls/hr IVPB Q8H ESTEBAN Rx#:[id number] Potassium Chloride 10 meq 200 In Water For Injection 1 100ml.bag @ 100 mls/hr IVPB Q1HR ESTEBAN Rx#: [id number] Blood Product 0 204 Platelet Pheresis Acda1 0 Unit [id number] Platelet Pheresis Acda3 0 204 Unit [id number] Output: Urine 650 375 75 Other: Voiding Method Indwelling Catheter Indwelling Catheter Indwelling Catheter - Exam Add: Mild diffuse abd tenderness. no definite rebound. ? more prominent in lower quadrants - Neurologic Neurologic Comment(s): Very weak, lethargic - Labs CBC & Chem 7: 03/27/20 04:20 03/27/20 04:20 Labs: Abnormal Lab Results - Last 24 Hours (Table) 03/24/20 03/27/20 03/27/20 Range/Units 15:38 04:20 04:20 WBC 0.2 L* (3.8-10.6) k/uL RBC 2.82 L (3.80-5.40) m/uL Hgb 8.6 L (11.4-16.0) gm/dL Hct 25.9 L (34.0-46.0) % RDW 15.6 H (11.5-15.5) % Plt Count 4 L* D (150-450) k/uL Sodium 129 L (137-145) mmol/L Carbon Dioxide 20 L (22-30) mmol/L Glucose 102 H (74-99) mg/dL POC Glucose (mg/dL) (75-99) mg/dL Crossmatch See Detail 03/27/20 03/27/20 03/27/20 Range/Units 06:42 18:33 20:10 WBC (3.8-10.6) k/uL RBC (3.80-5.40) m/uL Hgb (11.4-16.0) gm/dL Hct (34.0-46.0) % RDW (11.5-15.5) % Plt Count (150-450) k/uL Sodium (137-145) mmol/L Carbon Dioxide (22-30) mmol/L Glucose (74-99) mg/dL POC Glucose (mg/dL) 105 H 171 H 151 H (75-99) mg/dL Crossmatch Microbiology - Last 24 Hours (Table) 03/24/20 22:32 Blood Culture - Preliminary Blood No Growth after 48 hours Assessment and Plan Plan: Add: Given neutropenia and abd tenderness, will change diet to clear liquids only. Advance only when WBC recovers. D/W Nsg
[2020-03-27] MEDS ORDERED: DEXTROSE 5% IN WATER 100 ML with AMIODARONE 150 MG IV ONE (14:45)
[2020-03-27] MEDS ORDERED: AMIODARONE 360 MG in DEXTROSE 5% IN WATER 200 ML IV ONE ×2 (14:45)
[2020-03-27] MEDS: ESCITALOPRAM 10 MG TAB PO SCH ×2 (16:53→17:31)
--- NOTE | 2020-03-27 17:21 | PN ---
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 Patient also possibly neutropenic sepsis and severe pancytopenia also. The patient received 3 units of platelets and 2 units of packed cells so far and currently the hemoglobin is 8.6, but platelets are only 4. The patient is closely monitored in the ICU. White count is only 0.2. As mentioned earlier patient is severely depressed. The patient is crying at this time. PAST MEDICAL HISTORY: Reviewed. REVIEW OF SYSTEMS: CARDIOVASCULAR SYSTEM: No angina. RESPIRATION: No cough. GI: As mentioned earlier. : No dysuria. NERVOUS SYSTEM: No numbness or weakness. CURRENT MEDICATIONS: Reviewed and include: 1. Tylenol p.r.n. 2. DuoNeb q.i.d. and p.r.n. 3. Xanax 0.5 t.i.d. 4. Rocephin 2 g b.i.d. 5. Benadryl. 7. NovoLog. 8. Zestril. 9. Claritin. 10.Ativan. 11.Solu-Medrol 60 IV q.6 hours. 12.Lopressor. 13.Replacement protocols. 14.Protonix. 15.Compazine. PHYSICAL EXAM: Patient is alert oriented x3, pulse 108, blood pressure 159/118, respiration 26, temperature 98.4, pulse ox 94% on 2 L. HEENT: Conjunctivae normal. NECK: No jugular venous distension. CARDIOVASCULAR: S1, S2, muffled. RESPIRATION: Breath sounds diminished at the bases. A few scattered rhonchi, no crackles. ABDOMEN: Soft, nontender. LEGS: No edema, no swelling. NERVOUS SYSTEM: No focal deficits. LABS: At this time shows WBC 0.3, hemoglobin is 8.6, platelets are 4, sodium 129. ASSESSMENT: 1. 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 2. Neutropenic sepsis, present on admission. 3. Severe pancytopenia with anemia, leukopenia, thrombocytopenia. 4. History of small cell lung cancer on chemotherapy from Dr. Portillo. 5. Severe depression. 6. Adrenal insufficiency secondary to immune therapy, possibly. 7. Chronic obstructive pulmonary disease acute exacerbation. 8. Acute blood loss anemia, possibly. 9. Diffuse ST changes in the EKG. 10.Troponin 0.919 possible acute [id number]-OD-hrogqxr-elevation myocardial infarction present on admission. 11.Stage IV lung cancer. 12.Hyponatremia. 13.Change in mental status, metabolic encephalopathy, multifactorial. 14.History of dysphonia. 15.History of coronary artery disease, coronary artery bypass grafting, stent. 16.History of degenerative joint disease. 17.Remote history of nicotine dependence. 18.History of ETOH. 19.FULL CODE. RECOMMENDATIONS AND DISCUSSION: I recommend to continue current medications. Continue to monitor. Symptomatic treatment. Otherwise, monitor lytes closely. Monitor CBC closely. Platelet transfusion, otherwise add Lexapro to the current regimen. Continue with IV steroids. Further recommendations to follow. MMFRANCKL / IJN: [id number] / MTDD
[2020-03-27 18:34] LABS: Glucose,Whole Blood 171 mg/dL (75-99)
[2020-03-27] MEDS: ACETAMINOPHEN TAB 500 MG TAB PO SCH (19:58)
[2020-03-27] MEDS: diphenhydrAMINE 25 MG CAP PO SCH (19:59)
[2020-03-27 20:12] LABS: Glucose,Whole Blood 151 mg/dL (75-99)
[2020-03-27] MEDS: AMIODARONE 300 MG in DEXTROSE 5% IN WATER 250 ML IV SCH ×2 (20:22)
--- NOTE | 2020-03-28 02:55 | PN ---
PROGRESS NOTE DATE OF SERVICE: 03/27/2020 REASON FOR FOLLOWUP: Febrile neutropenia. INTERVAL HISTORY: The patient is currently afebrile. Patient is breathing comfortably. The patient denies having any chest pain, shortness of breath or cough. No further nausea, vomiting, or any diarrhea. PHYSICAL EXAMINATION: Blood pressure 140/98 with a pulse of 75, temperature 98.5. She is 95% on 2 L nasal cannula. General description is a middle-aged female lying in bed in no distress. RESPIRATORY SYSTEM: Unlabored breathing, clear to auscultation anteriorly. HEART: S1, S2. Regular rate and rhythm. ABDOMEN: Soft, no tenderness. LABS: Hemoglobin 8.6, white count 0.2 with BUN of 15, creatinine 0.81. DIAGNOSTIC IMPRESSION AND PLAN: Patient with febrile neutropenia predominantly with gastrointestinal symptoms of nausea, vomiting and diarrhea. Stool studies requested not completed. Culture has been negative. Fever resolved. Cefepime to continue and monitor clinical course closely. MMODL / IJN: [id number] /
[2020-03-28 05:09] LABS: HCT 28.2 % (34.0-46.0); HGB 9.1 gm/dL (11.4-16.0); Hypochromasia Slight; MCH 30.6 pg (25.0-35.0); MCHC 32.5 g/dL (31.0-37.0); MCV 94.2 fL (80.0-100.0); RBC 2.99 m/uL (3.80-5.40); RDW 15.9 % (11.5-15.5)
[2020-03-28 05:22] LABS: Platelet Count 35 k/uL (150-450); WBC 0.7 k/uL (3.8-10.6)
[2020-03-28 05:49] LABS: Calcium 8.9 mg/dL (8.4-10.2); Potassium 4.5 mmol/L (3.5-5.1)
[2020-03-28] MEDS: AMIODARONE 300 MG in DEXTROSE 5% IN WATER 250 ML IV SCH ×2 (05:50)
[2020-03-28] MEDS: methylPREDNISolone SOD SUCCI 125 MG/2 ML VIAL IV SCH ×2 (05:50→11:49)
[2020-03-28 06:33] LABS: Glucose,Whole Blood 157 mg/dL (75-99)
[2020-03-28] MEDS: INSULIN ASPART (NovoLOG) 100 UNIT/ML VIAL SQ SCH ×4 (06:34→21:24)
--- NOTE | 2020-03-28 08:43 | XR ---
EXAMINATION TYPE: XR chest 1V portable DATE OF EXAM: 03/28/2020 HISTORY: Shortness of breath. COMPARISON: 03/27/2020 TECHNIQUE: Single view of the chest is submitted. FINDINGS: Demonstrated are scattered senescent parenchymal change. Perihilar and basilar infiltrates and small effusions. Evidence of cardiomegaly. Hilar and mediastinal structures are within normal limits. Degenerative changes are seen of the dorsal spine. IMPRESSION: 1. Perihilar and basilar infiltrates and small effusions. Evidence of cardiomegaly.
[2020-03-28] MEDS: IPRATROPIUM-ALBUTEROL 3 ML NEB INHALATION SCH ×3 (08:49→19:50)
[2020-03-28] MEDS: ESCITALOPRAM 10 MG TAB PO SCH (08:54)
[2020-03-28] MEDS: FILGRASTIM-SNDZ 480 MCG/0.8 ML SYRINGE SQ SCH (08:54)
[2020-03-28] MEDS: NYSTATIN 100,000 UNIT/ML SUSP 500,000 UNIT/5 ML CUP PO SCH ×4 (08:54→20:02)
[2020-03-28] MEDS: PANTOPRAZOLE 40 MG/10 ML VIAL IVP SCH ×2 (08:54→20:00)
[2020-03-28] MEDS: LORATADINE 10 MG TAB PO SCH (08:54)
[2020-03-28] MEDS: METOPROLOL TARTRATE 25 MG TAB PO SCH ×2 (08:54→20:00)
[2020-03-28 11:46] LABS: Glucose,Whole Blood 149 mg/dL (75-99)
[2020-03-28] MEDS: LISINOPRIL 10 MG TAB PO SCH (11:49)
[2020-03-28] MEDS: CEFEPIME 2 GM in SODIUM CHLORIDE 0.9% 100 ML IVPB SCH ×2 (11:49→23:32)
[2020-03-28] MEDS ORDERED: FUROSEMIDE 10 MG/ML 4 ML VIAL IV STA (16:10)
[2020-03-28 16:39] LABS: Glucose,Whole Blood 133 mg/dL (75-99)
--- NOTE | 2020-03-28 16:48 | P.PN ---
Subjective Progress Note Date: 03/28/20 Principal diagnosis: Paroxysmal atrial fibrillation Non-ST segment elevated MN/demand ischemia Severe neutropenia due to postchemotherapy Thrombocytopenia Severe anemia Stage IV small cell lung cancer Elevated troponin End-stage COPD History of coronary artery disease 03/28/2020, patient seen eval reexamined during the rounds overall generalized weakness present mild shortness of breath is present however no cough congestion is present, patient is awake and alert, on 2 L oxygen saturation is 94-96%, breathing is heavy, tachypnea is noted, patient has been in A. fib with RVR required amiodarone drip which has been tapered and DC'd now we'll recommend to put her on oral amiodarone pending cardiology recommendation, patient is still intermittently going back and forth in A. fib, hemodynamics stable, chest x-ray reviewed bilateral pleural effusion has been noted along with interstitial edema hold care for the Lasix 40 mg 1, patient has been transfused with the 2 units of platelet platelet count has improved, has been on Neupogen white cell count improved to 700 now, hemoglobin remained stable at 7.1 platelet is 35, bicarb is just 15 will do arterial blood gases patient may required bicarb replacement Mar 27 2020, patient seen and evaluated in ICU still short of breath while, patient is on 2 L oxygen awake and alert slightly anxious, patient will be given some Xanax also has received some Ativan for anxiety, denies any chest pain denies any cough or sputum production, complain of weakness and overall not feeling well, remains afebrile with stable hemodynamics, labs reviewed white cell count is slightly off of 0.2 hemoglobin stable at 8.6, platelets continued to trend down latest is 4000 only, patient is to be transfused with 2 unit of platelets, cultures so far has been negative, patient cultures have been negative remains on broad-spectrum antibiotic and steroids 03/26/2020, patient seen and evaluated examined during the rounds he is she is visibly short of breath, but no overwhelming shortness breath is present denies any cough or sputum production denies any chest pain, patient had a short run of atrial fibrillation with RVR spontaneously appeared to have converted to sinus rhythm, patient to have a sinus arrhythmia, she is on 2 L oxygen breathing, still short of breath, patient remains on broad-spectrum antibiotics pending culture results and reports reviewed, so far urine and blood has been negative, white cell count is still low 0.1 with absolute neutropenia hemoglobin trending down but stable, platelet count have come down to 16,000 as well, no obvious signs of bleeding is present, cardiovascular services has been following, patient has been started on low-dose metoprolol, unfortunately other interventions couldn't be done including her anticoagulation or aspirin, This is a 65-year-old female who was seen eval reexamined in ICU, patient sees Dr. Guo for primary care activity, she admitted into the hospital with ongoing nausea vomiting she was found to have severe anemia, her history is significant for stage IV lung cancer, also has significant history of COPD coronary artery disease history of bypass surgery as well as stent placement, she has ongoing chronic shortness of breath patient is started having nausea vomiting for 1 day, he misses appeared to be very dark, came into the hospital for further evaluation in the emergency department she was noted to have significant pancytopenia hemoglobin is only 6.4 patient admitted into the hospital for further evaluation with GI as well as oncology on consult, her chest x-ray showed a pulmonary nodule, review of the data revealed that patient has a small cell lung cancer, patient has received chemotherapy with carboplatin and RAMP AGENT-16 it appears to be 4 cycle of chemotherapy was given mid March, patient has been found to have severe neutropenia likely related to postchemotherapy, patient currently have been started on Xanax 0 along with broad-spectrum antibiotics pending cultures are being obtained, and she is been placed on Solu- Medrol as well as PPI, currently she is on cephapirin Estefani her WBC is 0.2, after transfusion of 2 packed RBC hemoglobin improved to 9.8, platelets are 21, her troches are going up latest is 0.9, coronary virus is negative, Objective - Vital Signs Vital signs: Vital Signs Temp 96.9 F L 03/28/20 12:00 Pulse 66 03/28/20 16:00 Resp 21 03/28/20 16:00 BP 136/103 03/28/20 16:00 Pulse Ox 97 03/28/20 16:00 Intake & Output 03/27/20 03/28/20 03/28/20 18:59 06:59 18:59 Intake Total 340 760.667 160 Output Total 375 350 325 Balance -35 410.667 -165 Weight 58.3 kg Intake: IV 340 320 160 0.9 Normal Saline @ 20mL/ 240 220 160 hr as KVO Cefepime 2 gm In Sodium 100 100 Chloride 0.9% 100 ml @ 200 mls/hr IVPB Q8H [facility] Rx#:[id number] Intake, IV Titration 236.667 Amount Amiodarone 300 mg In 236.667 Dextrose 5% in Water 250 ml @ 0.5 MG/MIN 25 mls/hr IV .Q10H [facility] Rx#: [id number] Blood Product 0 204 Platelet Pheresis Acda1 0 Unit [id number] Platelet Pheresis Acda3 0 204 Unit [id number] Output: Urine 375 350 325 Other: Voiding Method Indwelling Catheter Indwelling Catheter Indwelling Catheter - Exam - Constitutional General appearance: average body habitus, cooperative, disheveled, ill appearing - EENT Eyes: EOMI, PERRLA Ears: bilateral: normal - Neck Neck: normal ROM Carotids: bilateral: upstroke normal Thyroid: bilateral: normal size - Respiratory Respiratory: bilateral: diminished, bilateral basal crackles - Cardiovascular Rhythm: regular Heart sounds: normal: S1, S2 - Gastrointestinal General gastrointestinal: normal bowel sounds - Neurologic Neurologic: CNII-XII intact - Musculoskeletal Musculoskeletal: gait normal, generalized weakness, strength equal bilaterally - Psychiatric Psychiatric: A&O x's 3, appropriate affect, intact judgment & insight - Labs CBC & Chem 7: 03/28/20 04:33 03/28/20 04:33 Labs: Abnormal Lab Results - Last 24 Hours (Table) 03/24/20 03/27/20 03/27/20 Range/Units 15:38 18:33 20:10 WBC (3.8-10.6) k/uL RBC (3.80-5.40) m/uL Hgb (11.4-16.0) gm/dL Hct (34.0-46.0) % RDW (11.5-15.5) % Plt Count (150-450) k/uL Sodium (137-145) mmol/L Carbon Dioxide (22-30) mmol/L BUN (7-17) mg/dL Glucose (74-99) mg/dL POC Glucose (mg/dL) 171 H 151 H (75-99) mg/dL Crossmatch See Detail 03/28/20 03/28/20 03/28/20 Range/Units 04:33 04:33 06:31 WBC 0.7 L* (3.8-10.6) k/uL RBC 2.99 L (3.80-5.40) m/uL Hgb 9.1 L (11.4-16.0) gm/dL Hct 28.2 L (34.0-46.0) % RDW 15.9 H (11.5-15.5) % Plt Count 35 L D (150-450) k/uL Sodium 129 L (137-145) mmol/L Carbon Dioxide 15 L (22-30) mmol/L BUN 21 H (7-17) mg/dL Glucose 132 H (74-99) mg/dL POC Glucose (mg/dL) 157 H (75-99) mg/dL Crossmatch 03/28/20 03/28/20 Range/Units 11:44 16:38 WBC (3.8-10.6) k/uL RBC (3.80-5.40) m/uL Hgb (11.4-16.0) gm/dL Hct (34.0-46.0) % RDW (11.5-15.5) % Plt Count (150-450) k/uL Sodium (137-145) mmol/L Carbon Dioxide (22-30) mmol/L BUN (7-17) mg/dL Glucose (74-99) mg/dL POC Glucose (mg/dL) 149 H 133 H (75-99) mg/dL Crossmatch Microbiology - Last 24 Hours (Table) 03/24/20 22:32 Blood Culture - Preliminary Blood No Growth after 72 hours Assessment and Plan Assessment: Metabolic acidosis Fluid overload bilateral pleural effusion Severe thrombocytopenia Paroxysmal atrial fibrillation Non-ST segment elevated MN/demand supply ischemia Severe neutropenia due to postchemotherapy Stage IV small cell lung cancer Anemia thrombocytopenia and neutropenia Elevated troponin End-stage COPD History of coronary artery disease Plan: Gentle diuresis with Lasix 40 mg IV 1 May need bicarb will check ABG Transfuse with 2 units of platelets Rate control with Lopressor Monitor electrolytes very closely and replace it Broad-spectrum antibiotics Supplemental oxygen Status post transfusion with 2 packed RBC trend hemoglobin Keep platelets over 10,000 trend platelets Zarxio is being continued for severe neutropenia postchemotherapy Continue neutropenic precautions Peptic ulcer disease prophylaxis Bronchodilators Ordered labs and chest x-ray in the morning Continue antianxiety agents and Other recommendations pending plan of care as per clinical response of the patient Time with Patient: Greater than 30
--- NOTE | 2020-03-28 16:53 | PN ---
PROGRESS NOTE DATE OF SERVICE: 03/28/2020 REASON FOR FOLLOWUP: Febrile neutropenia. INTERVAL HISTORY: The patient is currently afebrile. The patient is hemodynamically stable, not on pressor support. No further vomiting or diarrhea has been reported by the nursing staff. The patient was slightly sleepy today and did not provide any reliable history. PHYSICAL EXAMINATION: Blood pressure 136/94 with a pulse of 73, temperature is 98, she is 95% on 2 L nasal cannula. General description is a middle-aged female, lying in bed in no distress. RESPIRATORY SYSTEM: Unlabored breathing, clear to auscultation anteriorly. HEART: S1, S2. Regular rate and rhythm. ABDOMEN: Soft, no tenderness. LABS: Hemoglobin is 9.1, white count 0.7, BUN of 21, creatinine 0.93. Blood culture has been negative. DIAGNOSTIC IMPRESSION AND PLAN: Patient with febrile neutropenia in this patient currently undergoing chemotherapy for her lung cancer. X-ray with left perihilar basilar infiltrate with small effusion. Initial presentation of gastroenteritis. Patient is covered with cefepime to continue and monitor clinical course closely. MMODL / IJN: [id number] /
--- NOTE | 2020-03-28 16:53 | P.PN ---
<Ashlie Chávez - Last Filed: 03/28/20 16:49> Subjective Progress Note Date: 03/28/20 Principal diagnosis: Lung Cancer on Treatment, Pancytopenia Objective - Vital Signs Vital signs: Vital Signs Temp 96.9 F L 03/28/20 12:00 Pulse 66 03/28/20 16:00 Resp 21 03/28/20 16:00 BP 136/103 03/28/20 16:00 Pulse Ox 97 03/28/20 16:00 Intake & Output 03/27/20 03/28/20 03/28/20 18:59 06:59 18:59 Intake Total 340 760.667 160 Output Total 375 350 325 Balance -35 410.667 -165 Weight 58.3 kg Intake: IV 340 320 160 0.9 Normal Saline @ 20mL/ 240 220 160 hr as KVO Cefepime 2 gm In Sodium 100 100 Chloride 0.9% 100 ml @ 200 mls/hr IVPB Q8H [facility] Rx#:[id number] Intake, IV Titration 236.667 Amount Amiodarone 300 mg In 236.667 Dextrose 5% in Water 250 ml @ 0.5 MG/MIN 25 mls/hr IV .Q10H [facility] Rx#: [id number] Blood Product 0 204 Platelet Pheresis Acda1 0 Unit [id number] Platelet Pheresis Acda3 0 204 Unit [id number] Output: Urine 375 350 325 Other: Voiding Method Indwelling Catheter Indwelling Catheter Indwelling Catheter - Exam - Constitutional General appearance: average body habitus, cooperative, disheveled, ill appearing - EENT Eyes: EOMI, PERRLA Ears: bilateral: normal - Neck Neck: normal ROM Carotids: bilateral: upstroke normal Thyroid: bilateral: normal size - Respiratory Respiratory: bilateral: CTA, diminished - Cardiovascular Rhythm: regular Heart sounds: normal: S1, S2 - Gastrointestinal General gastrointestinal: normal bowel sounds - Neurologic Neurologic: CNII-XII intact - Musculoskeletal Musculoskeletal: gait normal, generalized weakness, strength equal bilaterally - Psychiatric Psychiatric: A&O x's 3, appropriate affect, intact judgment & insight - Labs CBC & Chem 7: 03/28/20 04:33 03/28/20 04:33 Labs: Abnormal Lab Results - Last 24 Hours (Table) 03/24/20 03/27/20 03/27/20 Range/Units 15:38 18:33 20:10 WBC (3.8-10.6) k/uL RBC (3.80-5.40) m/uL Hgb (11.4-16.0) gm/dL Hct (34.0-46.0) % RDW (11.5-15.5) % Plt Count (150-450) k/uL Sodium (137-145) mmol/L Carbon Dioxide (22-30) mmol/L BUN (7-17) mg/dL Glucose (74-99) mg/dL POC Glucose (mg/dL) 171 H 151 H (75-99) mg/dL Crossmatch See Detail 03/28/20 03/28/20 03/28/20 Range/Units 04:33 04:33 06:31 WBC 0.7 L* (3.8-10.6) k/uL RBC 2.99 L (3.80-5.40) m/uL Hgb 9.1 L (11.4-16.0) gm/dL Hct 28.2 L (34.0-46.0) % RDW 15.9 H (11.5-15.5) % Plt Count 35 L D (150-450) k/uL Sodium 129 L (137-145) mmol/L Carbon Dioxide 15 L (22-30) mmol/L BUN 21 H (7-17) mg/dL Glucose 132 H (74-99) mg/dL POC Glucose (mg/dL) 157 H (75-99) mg/dL Crossmatch 03/28/20 03/28/20 Range/Units 11:44 16:38 WBC (3.8-10.6) k/uL RBC (3.80-5.40) m/uL Hgb (11.4-16.0) gm/dL Hct (34.0-46.0) % RDW (11.5-15.5) % Plt Count (150-450) k/uL Sodium (137-145) mmol/L Carbon Dioxide (22-30) mmol/L BUN (7-17) mg/dL Glucose (74-99) mg/dL POC Glucose (mg/dL) 149 H 133 H (75-99) mg/dL Crossmatch Microbiology - Last 24 Hours (Table) 03/24/20 22:32 Blood Culture - Preliminary Blood No Growth after 72 hours Assessment and Plan Plan: Assessment and Plan Assessment: Metastatic small cell lung cancer: Small Cell Lung Cancer Patient of Dr. Portillo - Status Post Cycle 4 of chemotherapy with Carboplatin, FRAUD INVESTIGATOR-16 and Tecentriq, no growth factor - Last treatment given 03/15/20 - Outpatient follow-up for continuing chemotherapy/immunotherapy Severe neutropenia: High risk of neutropenic fever/sepsis - currently on broad-spectrum antibiotics - Continue patient on G-CSF Pancytopenia: Secondary to recent chemotherapy - Current hemoglobin is safe range - Platelets improved after transfusion yesterday - WBC count of 0.2 Continue Zarxio. - Zarxio 480mcg daily - Broad Spectrum Abx - Wagner Cultures - Transfuse Hemoglobin less then 7, plt less than 15K COPD Coronary artery disease with elevated troponins NSTEMI Electrolyte imbalance with hyponatremia and hypokalemia - Sodium 129 Adrenal Insufficiency secondary to possible tecentriq immune therapy - Decreased cortisol Stable - Continue Methylprednisone and PPI Acute issues per primary and ICU care Plan: Physician Attest: I have completed the full history and physcial and agree with above dictation, dictated as a scribe <GeronimoMarcio - Last Filed: 03/28/20 21:36> Subjective Pt still very weak, lethargic, confused in pm per Nsg, but alert during the day Objective - Vital Signs Vital signs: Vital Signs Temp 96.8 F L 03/28/20 20:00 Pulse 70 03/28/20 21:00 Resp 21 03/28/20 21:00 BP 148/98 03/28/20 21:00 Pulse Ox 96 03/28/20 21:00 Intake & Output 03/28/20 03/28/20 03/29/20 06:59 18:59 06:59 Intake Total 760.667 180 60 Output Total 350 545 550 Balance 907.058 -792 -766 Weight 58.3 kg Intake: IV 320 180 60 0.9 Normal Saline @ 20mL/ 220 180 60 hr as KVO Cefepime 2 gm In Sodium 100 Chloride 0.9% 100 ml @ 200 mls/hr IVPB Q8H [facility] Rx#:[id number] Intake, IV Titration 236.667 Amount Amiodarone 300 mg In 236.667 Dextrose 5% in Water 250 ml @ 0.5 MG/MIN 25 mls/hr IV .Q10H [facility] Rx#: [id number] Blood Product 204 Platelet Pheresis Acda3 204 Unit [id number] Output: Urine 350 545 550 Other: Voiding Method Indwelling Catheter Indwelling Catheter - Exam Add: persistent diffuse abd tendernes, most prominent RLQ. No definite rebound - Labs CBC & Chem 7: 03/28/20 04:33 03/28/20 04:33 Labs: Abnormal Lab Results - Last 24 Hours (Table) 03/28/20 03/28/20 03/28/20 Range/Units 04:33 04:33 06:31 WBC 0.7 L* (3.8-10.6) k/uL RBC 2.99 L (3.80-5.40) m/uL Hgb 9.1 L (11.4-16.0) gm/dL Hct 28.2 L (34.0-46.0) % RDW 15.9 H (11.5-15.5) % Plt Count 35 L D (150-450) k/uL ABG pH (7.35-7.45) ABG pCO2 (35-45) mmHg ABG pO2 (83-108) mmHg ABG HCO3 (21-25) mmol/L ABG Total CO2 (19-24) mmol/L Sodium 129 L (137-145) mmol/L Carbon Dioxide 15 L (22-30) mmol/L BUN 21 H (7-17) mg/dL Glucose 132 H (74-99) mg/dL POC Glucose (mg/dL) 157 H (75-99) mg/dL 03/28/20 03/28/20 03/28/20 Range/Units 11:44 16:38 17:12 WBC (3.8-10.6) k/uL RBC (3.80-5.40) m/uL Hgb (11.4-16.0) gm/dL Hct (34.0-46.0) % RDW (11.5-15.5) % Plt Count (150-450) k/uL ABG pH 7.46 H (7.35-7.45) ABG pCO2 22 L (35-45) mmHg ABG pO2 72 L (83-108) mmHg ABG HCO3 16 L (21-25) mmol/L ABG Total CO2 16 L (19-24) mmol/L Sodium (137-145) mmol/L Carbon Dioxide (22-30) mmol/L BUN (7-17) mg/dL Glucose (74-99) mg/dL POC Glucose (mg/dL) 149 H 133 H (75-99) mg/dL 03/28/20 Range/Units 21:01 WBC (3.8-10.6) k/uL RBC (3.80-5.40) m/uL Hgb (11.4-16.0) gm/dL Hct (34.0-46.0) % RDW (11.5-15.5) % Plt Count (150-450) k/uL ABG pH (7.35-7.45) ABG pCO2 (35-45) mmHg ABG pO2 (83-108) mmHg ABG HCO3 (21-25) mmol/L ABG Total CO2 (19-24) mmol/L Sodium (137-145) mmol/L Carbon Dioxide (22-30) mmol/L BUN (7-17) mg/dL Glucose (74-99) mg/dL POC Glucose (mg/dL) 152 H (75-99) mg/dL Microbiology - Last 24 Hours (Table) 03/24/20 22:32 Blood Culture - Preliminary Blood No Growth after 72 hours Assessment and Plan Plan: Add: WBC improved to 0.7 Prob neutropenic colitis/enteritis - Pt still with +ve exam features. Continue clears. Advance diet only when WBC recovers.D/W Nsg
[2020-03-28 17:15] LABS: ABG Base Excess -8.4 mmol/L; ABG HCO3 16 mmol/L (21-25); ABG PCO2 22 mmHg (35-45); ABG PH 7.46 (7.35-7.45); ABG PO2 72 mmHg (83-108); ABG TCO2 16 mmol/L (19-24); Allen Test Performed? Yes
[2020-03-28 17:16] LABS: ABG Oxygen Saturation 94.6 % (94-97)
--- NOTE | 2020-03-28 18:08 | PN ---
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 The patient also had severe neutropenic sepsis and is on broad-spectrum IV antibiotics. The most recent chest x-ray, which was reviewed personally by me, showed evidence of bilateral lesions and possibly some CHF. The patient also has significant anxiety and depression. Patient was crying yesterday. Patient was started on Lexapro in combination with Xanax. Hematology/Oncology is following the patient closely. The patient is on has significant the patient is on Zarxio. The patient has significant neutropenia with the white count slightly elevated at 0.7 today. Past medical history reviewed. REVIEW OF SYSTEMS: CARDIOVASCULAR SYSTEM: As mentioned earlier. RESPIRATORY SYSTEM: As mentioned earlier. GI: As mentioned earlier. : No dysuria or retention. NERVOUS SYSTEM: No numbness, weakness. CURRENT MEDICATIONS: Reviewed. They include: 1. Tylenol p.r.n. 2. DuoNeb q.i.d. and p.r.n. 3. Xanax. 4. Cefepime 2 grams. 5. Benadryl. 6. Lexapro. 7. Zarxio. 8. NovoLog scale. 9. Zestril. 10.Claritin. 11.Ativan. 12.Solu-Medrol. 13.Lopressor. 14.P.r.n. medications. 15.Protonix. PHYSICAL EXAMINATION: Patient is alert, oriented x2. Pulse 68, blood pressure 136/94, respiration 18, temperature normal, pulse ox 94% on 2 L. HEENT: Conjunctivae normal. NECK: No jugular venous distention. CARDIOVASCULAR SYSTEM: S1, S2 muffled. RESPIRATORY SYSTEM: Breath sounds diminished at the bases. Bilateral scattered rhonchi and crackles. ABDOMEN: Soft, non-tender. LEGS: No edema. No swelling. NERVOUS SYSTEM: Diffusely weak. LABS INVESTIGATIONS: WBC 0.7, hemoglobin is 9.1, platelets are 35. Sodium 129. ASSESSMENT: 1. 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 2. Neutropenic sepsis, severe, present on admission. 3. Severe pancytopenia with anemia, leukopenia and thrombocytopenia. 4. History of small-cell lung cancer, on chemotherapy from Dr. Portillo. 5. Severe depression. 6. Gait dysfunction. 7. Adrenal insufficiency history secondary to immune therapy possibly. 8. Chronic obstructive pulmonary disease, acute exacerbation. 9. Acute blood loss anemia possibly. 10.Diffuse ST-T changes in the EKG. 11.Troponin 0.919, possible acute liy-PT-rjuvhiz-elevation myocardial infarction, present on admission. 12.Stage IV lung cancer. 13.Hyponatremia. 14.Change in mental status, metabolic encephalopathy, multifactorial. 15.History of dysphonia. 16.History of coronary artery disease, coronary artery bypass grafting, stent. 17.History of degenerative joint disease. 18.Remote history of nicotine dependence. 19.History of ETOH. 20.FULL CODE. RECOMMENDATIONS AND DISCUSSION: I recommend to continue current medications, continue the medications, continue with the monitoring, symptomatic treatment. Otherwise at this time I would recommend continuing with the antibiotics. Monitor electrolytes closely. Continue the Zarxio. Continue with antidepressants. I would also recommend cutting down the steroids to 40 mg IV q.8. Closely follow with Pulmonary. Guarded prognosis because of multiple complex medical issues. Further recommendations to follow. Discussed with the patient. I would also recommend PT/OT evaluation and possible ECF rehab eventually because of the patient's general weakness which is noted. MMODL / IJN: [id number] /
[2020-03-28] MEDS ORDERED: AMIODARONE 360 MG in DEXTROSE 5% IN WATER 200 ML IV ONE ×2 (18:50)
[2020-03-28] MEDS: ACETAMINOPHEN TAB 500 MG TAB PO SCH (20:00)
[2020-03-28] MEDS: AMIODARONE 100 MG TAB PO SCH (20:01)
[2020-03-28] MEDS: diphenhydrAMINE 25 MG CAP PO SCH (20:01)
[2020-03-28] MEDS ORDERED: AMIODARONE 50 MG TAB PO SCH (21:00)
[2020-03-28 21:03] LABS: Glucose,Whole Blood 152 mg/dL (75-99)
[2020-03-28] MEDS: methylPREDNISolone SOD SUCCI 40 MG/ML 1 ML VIAL IV SCH (23:31)
--- NOTE | 2020-03-29 00:17 | PN ---
PROGRESS NOTE DATE OF DICTATION: 03/28/2020 The patient is a 65-year-old pleasant white female with history of stage IV lung cancer, undergoing chemotherapy admitted to the hospital with febrile neutropenia and severe anemia requiring 2 units of PRBC transfusion. She does not feel well, has decreased appetite. However, she reports no nausea, vomiting. She reports no abdominal pain and no rectal bleeding or melena. She remains on broad-spectrum antibiotics. PHYSICAL EXAMINATION: VITAL SIGNS: Blood pressure is 128/107, pulse rate 129 and afebrile. HEENT: Examination unremarkable. Conjunctivae pink. Sclerae anicteric. Oral cavity, no lesions. NECK: No JVD or lymph node enlargement. CHEST: Clear to auscultation. HEART: Regular rate and rhythm. ABDOMEN: Soft. Bowel sounds are positive. No organomegaly. EXTREMITIES: No pedal edema. NEURO: She is alert, oriented to name, place and time. LABS: Labs from today: WBC 5.7, hemoglobin 9.1, platelets 35,000. IMPRESSION: 1. Febrile neutropenia, on broad-spectrum antibiotics. 2. Severe anemia with one episode of coffee-ground emesis at the time of admission to the hospital, most likely related to chemo-induced gastritis. Presently, she is stable. Remains on Protonix 40 mg daily. No further episodes of nausea, vomiting or coffee-grounds emesis. She is status post 2 units of PRBC transfusion and hemoglobin remains stable at 9.1 g/dL. RECOMMENDATION: 1. Continue Protonix 40 mg daily. 2. Diet as tolerated. 3. Antiemetics as needed. 4. Continue broad-spectrum antibiotics. 5. No plans for any endoscopic intervention. Thank you for this consultation. MMODL / IJN: [id number] /
[2020-03-29] MEDS: AMIODARONE 300 MG in DEXTROSE 5% IN WATER 250 ML IV SCH ×6 (00:46→22:07)
[2020-03-29 05:33] LABS: ABG Base Excess -8.4 mmol/L; ABG HCO3 16 mmol/L (21-25); ABG PCO2 23 mmHg (35-45); ABG PH 7.45 (7.35-7.45); ABG PO2 82 mmHg (83-108); ABG TCO2 16 mmol/L (19-24); Allen Test Performed? Yes
[2020-03-29 05:52] LABS: HGB 9.5 gm/dL (11.4-16.0); MCH 30.7 pg (25.0-35.0); MCHC 32.9 g/dL (31.0-37.0); MCV 93.3 fL (80.0-100.0); Mean Platelet Volume 10.8; RDW 15.9 % (11.5-15.5); WBC 2.5 k/uL (3.8-10.6)
[2020-03-29 06:04] LABS: Platelet Count 28 k/uL (150-450)
[2020-03-29 06:05] LABS: Calcium 9.2 mg/dL (8.4-10.2); Potassium 3.8 mmol/L (3.5-5.1)
[2020-03-29 06:32] LABS: Glucose,Whole Blood 160 mg/dL (75-99)
[2020-03-29] MEDS: INSULIN ASPART (NovoLOG) 100 UNIT/ML VIAL SQ SCH ×4 (06:46→20:28)
[2020-03-29] MEDS: POTASSIUM CHLORIDE 10 MEQ in WATER FOR INJECTION 1 100ML.BAG IVPB SCH ×2 (07:10→08:34)
[2020-03-29] MEDS: IPRATROPIUM-ALBUTEROL 3 ML NEB INHALATION SCH ×3 (07:32→19:45)
[2020-03-29 08:33] LABS: Band Neutrophils % 1 %; Lymphocytes # (M) 0.28 k/uL (1.0-4.8); Monocytes # (M) 0.33 k/uL (0-1.0); Neutrophils % (M) 75 %; Nucleated Red Blood Cells 0 /100 WBC (0-0); Total Cells Counted 100
[2020-03-29] MEDS: methylPREDNISolone SOD SUCCI 40 MG/ML 1 ML VIAL IV SCH ×2 (08:33→17:16)
[2020-03-29] MEDS: PANTOPRAZOLE 40 MG/10 ML VIAL IVP SCH ×2 (08:33→20:29)
[2020-03-29] MEDS: FILGRASTIM-SNDZ 480 MCG/0.8 ML SYRINGE SQ SCH (08:33)
[2020-03-29] MEDS: NYSTATIN 100,000 UNIT/ML SUSP 500,000 UNIT/5 ML CUP PO SCH ×4 (08:33→20:29)
--- NOTE | 2020-03-29 08:35 | XR ---
EXAMINATION TYPE: XR chest 1V portable DATE OF EXAM: 03/29/2020 Comparison: 03/28/2020 Clinical History: 65-year-old female shortness of breath Findings: Median sternotomy wires are present with post-CABG clips in the mediastinum. Right anterior chest wal l injection port with catheter tip at the mid to lower SVC. Heart remains enlarged with mild prominen ce of pulmonary vasculature and continued small effusions with bibasilar opacities. Slight improvemen t at the right base. Old healed right-sided rib fracture deformities. Impression: Continued mild pulmonary vascular congestion with small effusions and adjacent atelectasis and/or con solidation. Some improvement in aeration at the right base.
[2020-03-29 08:38] LABS: Anisocytosis (M) Present; Poikilocytosis (M) Present
[2020-03-29 08:40] LABS: Spherocytes Present
[2020-03-29] MEDS: CEFEPIME 2 GM in SODIUM CHLORIDE 0.9% 100 ML IVPB SCH (11:12)
[2020-03-29] MEDS: LORATADINE 10 MG TAB PO SCH (11:12)
[2020-03-29] MEDS: ESCITALOPRAM 10 MG TAB PO SCH (11:12)
[2020-03-29] MEDS: METOPROLOL TARTRATE 25 MG TAB PO SCH ×2 (11:12→20:21)
[2020-03-29] MEDS: LISINOPRIL 10 MG TAB PO SCH (11:12)
[2020-03-29] MEDS: AMIODARONE 100 MG TAB PO SCH (11:12)
[2020-03-29 11:43] LABS: Glucose,Whole Blood 168 mg/dL (75-99)
[2020-03-29] MEDS ORDERED: SODIUM CHLORIDE 0.9% 250 ML IV ONE (12:15)
[2020-03-29 12:28] LABS: Glucose,Whole Blood 165 mg/dL (75-99)
[2020-03-29] MEDS: METOPROLOL TARTRATE 12.5 MG TAB PO SCH ×3 (12:50→20:21)
[2020-03-29] MEDS: DEXTROSE 5%-0.45% NACL 1,000 ML with SODIUM BICARB (1 MEQ/ML) 50 ML IV SCH ×4 (13:11→22:30)
--- NOTE | 2020-03-29 13:44 | P.PN ---
Subjective Progress Note Date: 03/29/20 Principal diagnosis: Lung Cancer on Treatment, Pancytopenia WBC improved today 2.5 Prob neutropenic colitis/enteritis - Pt still with +ve exam features. Continue clears. Advance diet only when WBC recovers.D/W Nsg Objective - Vital Signs Vital signs: Vital Signs Temp 96.4 F L 03/29/20 12:00 Pulse 128 H 03/29/20 13:00 Resp 25 H 03/29/20 13:00 BP 108/89 03/29/20 13:00 Pulse Ox 95 03/29/20 13:00 Intake & Output 03/28/20 03/29/20 03/29/20 18:59 06:59 18:59 Intake Total 180 240 740 Output Total 545 1175 415 Balance -365 -935 325 Weight 58.4 kg Intake: IV 180 240 490 0.9 Normal Saline @ 20mL/ 180 240 140 hr as KVO Potassium Chloride 10 meq 100 In Water For Injection 1 100ml.bag @ 100 mls/hr IVPB Q1H [facility] Rx#: [id number] Sodium Chloride 0.9% 250 250 ml @ 999 mls/hr IV .Q16M [facility] Rx#:[id number] Intake, IV Titration 250 Amount Amiodarone 300 mg In 250 Dextrose 5% in Water 250 ml @ 0.5 MG/MIN 25 mls/hr IV .Q10H [facility] Rx#: [id number] Output: Urine 545 1175 415 Other: Voiding Method Indwelling Catheter Indwelling Catheter - Exam - Constitutional General appearance: average body habitus, cooperative, disheveled, ill appearing - EENT Eyes: EOMI, PERRLA Ears: bilateral: normal - Neck Neck: normal ROM Carotids: bilateral: upstroke normal Thyroid: bilateral: normal size - Respiratory Respiratory: bilateral: CTA, diminished - Cardiovascular Rhythm: regular Heart sounds: normal: S1, S2 - Gastrointestinal General gastrointestinal: normal bowel sounds - Neurologic Neurologic: CNII-XII intact - Musculoskeletal Musculoskeletal: gait normal, generalized weakness, strength equal bilaterally - Psychiatric Psychiatric: A&O x's 3, appropriate affect, intact judgment & insight - Labs CBC & Chem 7: 03/29/20 05:17 03/29/20 05:17 Labs: Abnormal Lab Results - Last 24 Hours (Table) 03/28/20 03/28/20 03/28/20 Range/Units 16:38 17:12 21:01 WBC (3.8-10.6) k/uL RBC (3.80-5.40) m/uL Hgb (11.4-16.0) gm/dL Hct (34.0-46.0) % RDW (11.5-15.5) % Plt Count (150-450) k/uL Lymphocytes # (Manual) (1.0-4.8) k/uL ABG pH 7.46 H (7.35-7.45) ABG pCO2 22 L (35-45) mmHg ABG pO2 72 L (83-108) mmHg ABG HCO3 16 L (21-25) mmol/L ABG Total CO2 16 L (19-24) mmol/L Sodium (137-145) mmol/L Carbon Dioxide (22-30) mmol/L BUN (7-17) mg/dL Creatinine (0.52-1.04) mg/dL Glucose (74-99) mg/dL POC Glucose (mg/dL) 133 H 152 H (75-99) mg/dL 03/29/20 03/29/20 03/29/20 Range/Units 05:17 05:17 05:30 WBC 2.5 L (3.8-10.6) k/uL RBC 3.10 L (3.80-5.40) m/uL Hgb 9.5 L (11.4-16.0) gm/dL Hct 29.0 L (34.0-46.0) % RDW 15.9 H (11.5-15.5) % Plt Count 28 L (150-450) k/uL Lymphocytes # (Manual) 0.28 L (1.0-4.8) k/uL ABG pH (7.35-7.45) ABG pCO2 23 L (35-45) mmHg ABG pO2 82 L (83-108) mmHg ABG HCO3 16 L (21-25) mmol/L ABG Total CO2 16 L (19-24) mmol/L Sodium 130 L (137-145) mmol/L Carbon Dioxide 15 L (22-30) mmol/L BUN 32 H (7-17) mg/dL Creatinine 1.34 H (0.52-1.04) mg/dL Glucose 141 H (74-99) mg/dL POC Glucose (mg/dL) (75-99) mg/dL 03/29/20 03/29/20 03/29/20 Range/Units 06:30 11:41 12:27 WBC (3.8-10.6) k/uL RBC (3.80-5.40) m/uL Hgb (11.4-16.0) gm/dL Hct (34.0-46.0) % RDW (11.5-15.5) % Plt Count (150-450) k/uL Lymphocytes # (Manual) (1.0-4.8) k/uL ABG pH (7.35-7.45) ABG pCO2 (35-45) mmHg ABG pO2 (83-108) mmHg ABG HCO3 (21-25) mmol/L ABG Total CO2 (19-24) mmol/L Sodium (137-145) mmol/L Carbon Dioxide (22-30) mmol/L BUN (7-17) mg/dL Creatinine (0.52-1.04) mg/dL Glucose (74-99) mg/dL POC Glucose (mg/dL) 160 H 168 H 165 H (75-99) mg/dL Microbiology - Last 24 Hours (Table) 03/24/20 22:32 Blood Culture - Preliminary Blood No Growth after 96 hours Assessment and Plan Plan: Assessment and Plan Assessment: Metastatic small cell lung cancer: Small Cell Lung Cancer Patient of Dr. Portillo - Status Post Cycle 4 of chemotherapy with Carboplatin, DRY DIP WORKER-16 and Tecentriq, no growth factor - Last treatment given 03/15/20 - Outpatient follow-up for continuing chemotherapy/immunotherapy Severe neutropenia: High risk of neutropenic fever/sepsis - Improving WBC 2.5 - currently on broad-spectrum antibiotics - Continue patient on G-CSF Pancytopenia: Secondary to recent chemotherapy - Current hemoglobin is safe range - Platelets improved after transfusion yesterday - WBC count 2.5, improving Continue Zarxio. - Zarxio 480mcg daily - Broad Spectrum Abx - Wagner Cultures - Transfuse Hemoglobin less then 7, plt less than 15K - Platlets 28K - Stable Diarrhea: - Prob neutropenic colitis/enteritis - Pt still with +ve exam features. Continue clears. - Advance diet only when WBC recovers.D/W Nsg Coronary artery disease with elevated troponins NSTEMI Electrolyte imbalance with hyponatremia and hypokalemia - Sodium 130 Adrenal Insufficiency secondary to possible tecentriq immune therapy - Decreased cortisol Stable - Continue Methylprednisone and PPI Acute issues per primary and ICU care Plan: - Continue Clear liquid until neutropenia improves with concern for neutropenic colitis - Daily CBC Physician Attest: I have completed the full history and physcial and agree with above dictation, dictated as a scribe
[2020-03-29] MEDS ORDERED: SODIUM BICARB 8.4% 50 ML SYR (1 MEQ/ML) IV STA (14:18)
[2020-03-29] MEDS ORDERED: DILTIAZEM 125 MG in SODIUM CHLORIDE 0.9% 100 ML IV SCH (15:00)
--- NOTE | 2020-03-29 16:31 | P.PN ---
Progress Note - Text Progress Note Date: 03/29/20 Presenting complaint GI bleed Interval history: This is a patient was admitted with GI bleed with acute blood loss anemia with chemotherapy-induced gastritis Patient also had severe neutropenia and sepsis on broad-spectrum IV antibiotics. Also significant anxiety depression. Today-: ICU-patient had been atrial fibrillation for which she was put back on IV amiodarone. Social work to sinus rhythm. Patient has been very lethargic. Decreased oral intake. Has had no bowel movement. Patient is feeling cold. Not much of an appetite. Per the nursing staff reluctant to eat. Review of systems: Was done for constitutional, cardiovascular, GI, pulmonary. relevant finding as above Active Medications Acetaminophen (Tylenol Tab) 500 mg PO [facility] Last Admin: 03/28/20 20:00 Dose: 500 mg Documented by: Albuterol/Ipratropium (Duoneb 0.5 Mg-3 Mg/3 Ml Soln) 3 ml INHALATION RT-TID [facility] Last Admin: 03/29/20 11:54 Dose: 3 ml Documented by: Albuterol/Ipratropium (Duoneb 0.5 Mg-3 Mg/3 Ml Soln) 3 ml INHALATION RT-TID PRN PRN Reason: Shortness Of Breath Or Wheezing Alprazolam (Xanax) 0.25 mg PO TID PRN PRN Reason: MILD Anxiety Last Admin: 03/27/20 19:58 Dose: 0.25 mg Documented by: Amiodarone HCl (Cordarone) 50 mg PO BID [facility] Last Admin: 03/29/20 11:12 Dose: Not Given Documented by: Diphenhydramine HCl (Benadryl) 25 mg PO [facility] Last Admin: 03/28/20 20:01 Dose: 25 mg Documented by: Escitalopram Oxalate (Lexapro) 10 mg PO DAILY [facility] Last Admin: 03/29/20 11:12 Dose: 10 mg Documented by: Filgrastim (Zarxio) 480 mcg SQ DAILY [facility] Last Admin: 03/29/20 08:33 Dose: 480 mcg Documented by: Cefepime HCl 2 gm/ Sodium (Chloride) 100 mls @ 200 mls/hr IVPB Q12H [facility] Last Admin: 03/29/20 11:12 Dose: 200 mls/hr Documented by: Amiodarone HCl 300 mg/ (Dextrose/Water) 250 mls @ 25 mls/hr IV .Q10H [facility]; Protocol Stop: 03/29/20 18:59 Last Admin: 03/29/20 12:18 Dose: 0.5 mg/min, 25 mls/hr Documented by: Sodium Bicarbonate 50 ml/ (Dextrose/Sodium Chloride) 1,050 mls @ 125 mls/hr IV .Q8H24M [facility] Last Admin: 03/29/20 13:11 Dose: 125 mls/hr Documented by: Diltiazem HCl 125 mg/ Sodium (Chloride) 125 mls @ 5 mls/hr IV .Q24H [facility] Last Admin: 03/29/20 15:22 Dose: 5 mg/hr, 5 mls/hr Documented by: Insulin Aspart (Novolog) 0 unit SQ ACHS [facility]; Protocol Last Admin: 03/29/20 12:50 Dose: 1 unit Documented by: Loratadine (Claritin) 10 mg PO DAILY [facility] Last Admin: 03/29/20 11:12 Dose: 10 mg Documented by: Lorazepam (Ativan) 0.5 mg PO Q8HR PRN PRN Reason: MODERATE Anxiety Last Admin: 03/27/20 12:06 Dose: 0.5 mg Documented by: Methylprednisolone Sodium Succinate (Solu-Medrol) 40 mg IV Q8HR [facility] Last Admin: 03/29/20 08:33 Dose: 40 mg Documented by: Metoprolol Tartrate (Lopressor) 25 mg PO BID [facility] Last Admin: 03/29/20 11:12 Dose: 25 mg Documented by: Metoprolol Tartrate (Lopressor) 12.5 mg PO TID [facility] Last Admin: 03/29/20 12:50 Dose: 12.5 mg Documented by: Miscellaneous Information (Potassium Per Protocol) 1 each MISCELLANE DAILY PRN; Protocol PRN Reason: Per Protocol Miscellaneous Information (Magnesium Per Protocol) 1 each MISCELLANE DAILY PRN; Protocol PRN Reason: Per Protocol Naloxone HCl (Narcan) 0.2 mg IV Q2M PRN PRN Reason: Opioid Reversal Nystatin (Mycostatin Oral Susp) 500,000 unit PO QID [facility] Last Admin: 03/29/20 13:58 Dose: 500,000 unit Documented by: Pantoprazole Sodium (Protonix) 40 mg IVP BID [facility] Last Admin: 03/29/20 08:33 Dose: 40 mg Documented by: Prochlorperazine Maleate (Compazine) 10 mg PO Q6H PRN PRN Reason: Nausea And Vomiting Last Admin: 03/26/20 16:48 Dose: 10 mg Documented by: On examination: VITAL SIGNS: 97.8, 92, 20, 146/65, 93% on room air GENERAL APPEARANCE: Laying in bed, tired awake. HEENT: Normal external appearance of nose and ear. Oral cavity dry EYES: Pupils equal. Conjunctiva normal. NECK: JVD not raised. Mass not palpable. RESPIRATORY: Respiratory effort increased. Lungs-decreased breath sounds. CARDIOVASCULAR: Heart sounds irregular, some edema. ABDOMEN: Soft. Liver and spleen not palpable. No tenderness. No mass palpable. PSYCHIATRY: Answers questions was rather depressed appearing INVESTIGATIONS, reviewed in the clinical context: White count 2.5 hemoglobin 9.5 platelets 28 sodium 1:30 bun 32 creatinine 1.34 bicarbonate 15 Previous testing: White count 0.2 hemoglobin 8.5 platelets 20 Troponin I 0.067, 0.919 COVID-19 PCR-not detected Urine culture and blood culture-both negative Assessment: -Severe anemia with 1 episode of coffee-ground emesis felt to be most likely chemotherapy-induced gastritis -Acute non-Q-wave myocardial infarction -Advanced COPD in an ex-smoker -Coronary artery disease with a prior history of stent and a coronary bypass in 2003 -Metastatic small cell lung cancer status post 4 cycles of chemotherapy last treatment on March 15 and immunotherapy -Severe pancytopenia secondary to chemotherapy responding toZarxio -Possible neutropenic colitis -Possible adrenal insufficiency secondary to immunotherapy -Metabolic acidosis-worsening -Paroxysmal atrial fibrillation currently in rapid ventricular rate on IV amiodarone -Metabolic encephalopathy possibly from acute renal failure and other medical problems-new diagnosis -Acute kidney injury possibly prerenal with creatinine going from 0.78 up to 1.34-new diagnosis - Plan: We'll start the patient on D5 0.45 with 1 amp of bicarbonate at 125 mL an hour. We'll also start the patient on Lopressor. Cardiology will be consulted. We'll temporally hold off YANETH inhibitor.
--- NOTE | 2020-03-29 16:52 | CT ---
EXAMINATION TYPE: CT brain wo con DATE OF EXAM: 03/29/2020 COMPARISON: None HISTORY: mental status changes. Lethargy CT DLP: 1051.4 mGycm Automated exposure control for dose reduction was used. Helical acquisition through the brain. FINDINGS: There is cortical atrophy. No hemorrhage or hydrocephalus. Periventricular white matter shows low att enuation. Punctate focus of calcification present at the hess-white junction of the left frontal lobe on axial image 37 is noted, no mass effect or edema. There are cerebral vascular calcifications. Av varium is intact. Paranasal sinuses and mastoid air cells as visualized are normal. Orbits are symmet scooter. IMPRESSION: AGE-RELATED CHANGES OF ATROPHY AND CHRONIC SMALL VESSEL ISCHEMIA. PUNCTATE FOCUS OF CALCIFICATION IS INDETERMINATE.
--- NOTE | 2020-03-29 16:58 | EEG ---
ELECTROENCEPHALOGRAM REPORT DATE OF SERVICE: 03/29/2020. HISTORY: This is an inpatient EEG performed on a 65-year-old female with a history of stage IV cancer. She was admitted to the ICU for further deterioration clinically. She was found to develop altered mental status. Neurology consulted to rule out possible underlying seizures. TECHNICAL REPORT: This is an inpatient EEG performed on the [employer] EEG monitor with electrodes placed according to the International 10-20 system and a single EKG channel. Simultaneous video EEG monitoring was performed. This EEG was reviewed in both longitudinal bipolar, average referential and transverse montages. Photic stimulation was performed. Hyperventilation was not performed due to the patient's condition. The recording begins with generalized slowing of the background. The background consists of mixed theta frequencies of [id number] high amplitude. Intermittent muscle artifact appears over the T4 electrode placement. Needling during the beginning of this EEG, irregular heart rate is noted. During the recording, the patient did have frequent grimacing with raising of her eyebrows. Clinically, the patient was only able to alert her name, but not respond to following commands. Occasionally, her left hand was noted to dry clipper tender and release. The technologist reports that she was unable to close her left eye during the study and had to manually close it. Rare isolated left frontal sharp waves were noted. Photic stimulation was performed at various flash frequencies and failed to elicit a consistent driving response. An increase in beta activity became prominent during photic stimulation, as well as tachycardia was noted. At 15:42:31 there was a burst of moderate amplitude, single sharp and slow wave discharge that occurred in the bifrontal electrode placement along the central head region. Toward the end of the recording, rare surface positive sharp waves would appear bifrontally. IMPRESSION: This is an abnormal EEG consistent with an encephalopathic state as seen in generalized cerebral dysfunction. There also appears to be a potential epileptogenic focus lateralized to the bifrontal and central head region. This is what was described as the epileptiform discharges noted. No electrographic seizures or clinical seizures were recorded. No areas of focal slowing were noted. No abnormalities were noted during photic stimulation. The EKG was noted to be abnormal with the patient in and out of tachycardia. CLINICAL CORRELATION: This EEG does suggest diffuse encephalopathic state with increased risk for seizures. Further clinical correlation is needed. Medical management is suggested along with neuro imaging studies to rule out or any possible structural mass lesion such as brain metastasis. If clinically indicated, a more prolonged overnight study could provide additional information and/or serial EEGs. A verbal report of this EEG was provided to the ICU nurse. ABRAHAN / RAGHAVN: [id number] /
--- NOTE | 2020-03-29 17:21 | PN ---
PROGRESS NOTE DATE OF DICTATION: 03/29/2020 This patient is a 65-year-old pleasant white female with stage IV lung cancer who underwent chemotherapy. Last cycle was about 10 days ago. She has been admitted to the hospital with febrile neutropenia, on broad-spectrum antibiotics. She had nausea, vomiting and upper GI bleed which has since resolved. Today she is very lethargic, not responding to simple questions. She just opens her eyes. Decreased oral intake. As per the nursing staff, no abdominal pain. No nausea, vomiting. No rectal bleeding or melena. PHYSICAL EXAMINATION: Appears comfortable. No apparent distress. VITAL SIGNS: Blood pressure 140/109, temperature 99, pulse rate 114. HEENT examination unremarkable. Conjunctivae pink. Sclerae anicteric. Oral cavity no lesions. NECK: No JVD or lymph node enlargement. CHEST: Clear to auscultation. HEART: Regular rate and rhythm. ABDOMEN: Soft. There was very minimal tenderness in the epigastric area. Rest of the abdomen benign. EXTREMITIES: No pedal edema. NEUROLOGIC: She is very lethargic. LABS: WBC today 2.5, hemoglobin 9.5, platelets 28,000. BUN 32, creatinine 1.34. IMPRESSION: 1. Nausea, vomiting, epigastric pain and coffee-ground emesis secondary to chemotherapy-induced gastritis, resolved. No further episodes of bleeding. Hemoglobin stable at 9.5, status post two units of blood transfusion at the time of admission to the hospital. 2. Febrile neutropenia, on broad-spectrum antibiotics. 3. Stage IV lung cancer, undergoing chemotherapy. Last cycle was 10 days ago. 4. Altered mental status. 5. Decreased oral intake. RECOMMENDATIONS: 1. Continue with Protonix. 2. Continue with symptomatic and supportive care. 3. Encourage oral intake. 4. Continue broad-spectrum antibiotics. 5. No plans on any endoscopic intervention. Will sign off at this time. Please call us if needed. Thank you for this consultation. MMODL / IJN: [id number] /
[2020-03-29 17:29] LABS: Glucose,Whole Blood 230 mg/dL (75-99)
[2020-03-29] MEDS: levETIRAcetam IV 500 MG in SODIUM CHLORIDE 0.9% 100 ML IVPB SCH (18:12)
--- NOTE | 2020-03-29 19:18 | P.CNNES ---
History of Present Illness Consult date: 03/29/20 Reason for Consult: Encephalopathy History of Present Illness: This is a new neurology consult requested for further advice and recommendations for 65-year-old female who has known stage IV lung cancer with metastatic brain lesions. She was admitted for further decompensation and blood transfusion thrombo-cytopenia. Neurology was consulted due to her lack of appropriateness of responsiveness. An EEG was completed today which did show evidence of epileptiform activity involving the bifrontal head region. Review of her chart indicates that she has had a MRI scan back in December of this year which confirms the lesion burden from the cancer. The patient has 4 lesions noted on the MRI from December 07. There is a lesion ring-enhancing within the right midbrain that extends and to the right infrahilar thalamic region. This lesion had mild mass effect upon the third ventricle from the right to left. Another tiny ring-enhancing lesions were noted measuring 7 mm within the left centrum semiovale anteriorly. A third lesion 5 mm in the left high frontal lobe and a tiny 4 mm lesion noted in the left cerebellar hemisphere. According to her she had a PET scan last Thursday and just 3 weeks ago had a follow-up MRI of her brain after undergoing the chemotherapy. Those results were done at an outside Center and not are available to review today. A computed tomography scan of the head was completed today which did not show evidence of any structural mass lesions. The patient's chart was reviewed and notable anemia and thrombocytopenia was evident. Past Medical History Past Medical History: Cancer, COPD Additional Past Medical History / Comment(s): lost voice in April 2019 with continuing cough, Stage 4 lung CA. History of Any Multi-Drug Resistant Organisms: None Reported Past Surgical History: Coronary Bypass/CABG, Heart Catheterization With Stent, Orthopedic Surgery Additional Past Surgical History / Comment(s): cabg 04/2004, carpal tunnel ana,hip surgery repair nerve , rt rotator cuff repair Past Anesthesia/Blood Transfusion Reactions: No Reported Reaction, Family History of Problems w/ Anesthesia Additional Past Anesthesia/Blood Transfusion Reaction / Comment(s): mother takes long time to come out of anesthesia Date of Last Stent Placement:: 08/05 Past Psychological History: No Psychological Hx Reported Smoking Status: Former smoker - Past Family History Mother Family Medical History: No Reported History Medications and Allergies Home Medications Medication Instructions Recorded Confirmed Type Aspirin 81 mg PO DAILY 12/14/19 03/24/20 History Dexamethasone [Decadron] 4 mg PO BID 12/14/19 03/24/20 History Acetaminophen/Diphenhydramine 1 tab PO HS 03/24/20 03/24/20 History [Tylenol Pm Ex-Strength Caplet] Dronabinol 5 mg PO HS 03/24/20 03/24/20 History Lisinopril [Zestril] 10 mg PO DAILY 03/24/20 03/24/20 History Prochlorperazine [Compazine] 10 mg PO Q6H PRN 03/24/20 03/24/20 History Tetracycline HCl 500 mg PO Q12H 03/24/20 03/24/20 History Allergies Allergy/AdvReac Type Severity Reaction Status Date / Time No Known Allergies Allergy Verified 03/24/20 17:02 Physical Examination - Vital Signs Vital Signs: Vital Signs Temp Pulse Resp BP Pulse Ox 03/29/20 18:00 112 H 10 L 128/96 94 L 03/29/20 17:00 104 H 17 127/117 97 03/29/20 16:00 96.5 F L 109 H 20 121/98 95 03/29/20 15:00 114 H 18 140/109 96 03/29/20 14:00 122 H 18 122/110 98 03/29/20 13:00 128 H 25 H 108/89 95 03/29/20 12:05 68 03/29/20 12:00 96.4 F L 75 16 170/112 99 03/29/20 11:54 62 03/29/20 11:00 63 17 147/86 96 03/29/20 10:00 64 15 148/90 95 03/29/20 09:00 62 12 146/81 95 03/29/20 08:00 97.6 F 65 12 149/101 95 03/29/20 07:45 67 03/29/20 07:33 66 03/29/20 07:00 116 H 20 128/111 95 03/29/20 06:00 102 H 20 112/87 94 L 03/29/20 05:00 128 H 24 127/78 98 03/29/20 04:00 111 H 24 112/86 99 03/29/20 03:00 96.7 F L 115 H 15 112/96 98 03/29/20 02:00 114 H 15 116/88 92 L 03/29/20 01:00 71 18 132/78 96 03/29/20 00:00 96.7 F L 56 L 16 134/80 95 03/28/20 23:04 60 18 135/84 96 03/28/20 23:00 60 18 148/86 97 03/28/20 22:00 61 19 123/71 96 03/28/20 21:00 70 21 148/98 96 03/28/20 20:02 71 18 03/28/20 20:00 96.8 F L 65 24 142/85 100 03/28/20 19:50 68 18 Intake and Output 03/29/20 03/29/20 03/29/20 06:59 14:59 22:59 Intake Total 160 875 520 Output Total 550 445 115 Balance -390 430 405 Intake: IV 160 625 520 0.9 Normal Saline @ 20mL/ 160 150 10 hr as KVO Dextrose 5%-0.45% NaCl 1, 125 500 000 ml @ 125 mls/hr IV . Q8H24M [facility] with Sodium Bicarb (1 Meq/ml) 50 ml Rx#:[id number] Diltiazem 125 mg In 10 Sodium Chloride 0.9% 100 ml @ 5 MG/HR 5 mls/hr IV .Q24H [facility] Rx#:[id number] Potassium Chloride 10 meq 100 In Water For Injection 1 100ml.bag @ 100 mls/hr IVPB Q1H [facility] Rx#: [id number] Sodium Chloride 0.9% 250 250 ml @ 999 mls/hr IV .Q16M ONE Rx#:[id number] Intake, IV Titration 250 Amount Amiodarone 300 mg In 250 Dextrose 5% in Water 250 ml @ 0.5 MG/MIN 25 mls/hr IV .Q10H [facility] Rx#: [id number] Output: Urine 550 445 115 Other: Voiding Method Indwelling Catheter Indwelling Catheter Indwelling Catheter Weight 58.4 kg Gen. exam: Patient lethargic HEENT: Mildly injected sclera. Mucous membranes dry. Neck appears supple. Pulses: Radial pedal pulses are equal and symmetric. Skin: Multiple bruises and rashes noted poor skin turgor. Extremities: No edema noted in the hands or feet. No clubbing of the digits noted. Mental status: Patient is very lethargic. Was told prior to my examination that her spoke to her on the phone and she responded what. Since then she has continued to have no verbal output afterwards. Patient is not able to follow commands consistently. Pupils: 4 mm equal and sluggishly reactive to light. Cranial nerves: Tracks minimally. Face appears symmetric. Gag reflex appears intact. Tongue is midline without fasciculations or deviation. Next Motor examination: Continuous facial motor twitching is noted in the left corner lip. There is severely increased tone noted in the left upper extremity shivering is noted in the left upper extremity patient's unable to relax hand. Patient was able to move both legs with flexion-extension. Unable to do a formal motor exam assessment at this time. Patient does withdraw to tactile stimulation on the feet bilaterally. Deep tendon reflexes are hyperreflexic over biceps triceps. Patellar reflexes are absent bilaterally. Ankle jerks are absent bilaterally. No ankle clonus is elicited. Plantar responses are flexor bilaterally. Results - Laboratory Findings CBC and BMP: 03/29/20 05:17 03/29/20 05:17 Abnormal Lab Findings: Abnormal Labs 03/24/20 03/24/20 03/24/20 15:38 15:38 15:38 WBC 0.1 L* RBC 2.01 L Hgb 6.4 L* Hct 18.7 L* RDW 17.7 H Plt Count 11 L* Lymphocytes # (Manual) ABG pH ABG pCO2 ABG pO2 ABG HCO3 ABG Total CO2 Sodium 132 L Potassium Carbon Dioxide BUN 19 H Creatinine Glucose POC Glucose (mg/dL) Calcium Total Bilirubin Troponin I Total Protein Albumin 3.4 L Lipase Crossmatch See Detail 03/24/20 03/24/20 03/24/20 15:38 22:32 22:32 WBC 0.2 L* RBC 2.72 L Hgb 8.5 L D Hct 25.3 L RDW 17.7 H Plt Count 20 L D Lymphocytes # (Manual) ABG pH ABG pCO2 ABG pO2 ABG HCO3 ABG Total CO2 Sodium Potassium Carbon Dioxide BUN Creatinine Glucose POC Glucose (mg/dL) Calcium Total Bilirubin Troponin I 0.067 H* Total Protein Albumin Lipase 19 L Crossmatch 03/25/20 03/25/20 03/25/20 00:16 04:41 04:41 WBC RBC Hgb Hct RDW Plt Count Lymphocytes # (Manual) ABG pH ABG pCO2 ABG pO2 ABG HCO3 ABG Total CO2 Sodium 132 L Potassium 3.1 L Carbon Dioxide 20 L BUN Creatinine Glucose POC Glucose (mg/dL) 101 H Calcium 8.0 L Total Bilirubin Troponin I 0.877 H* Total Protein Albumin Lipase Crossmatch 03/25/20 03/25/20 03/25/20 04:41 13:12 13:15 WBC 0.1 L* 0.2 L* RBC 2.22 L 3.16 L Hgb 6.9 L* D 9.8 L D Hct 20.0 L 30.0 L RDW 16.0 H 15.6 H Plt Count 27 L 21 L Lymphocytes # (Manual) ABG pH ABG pCO2 ABG pO2 ABG HCO3 ABG Total CO2 Sodium Potassium Carbon Dioxide BUN Creatinine Glucose POC Glucose (mg/dL) Calcium Total Bilirubin Troponin I 0.919 H* Total Protein Albumin Lipase Crossmatch 03/25/20 03/25/20 03/26/20 17:28 21:15 03:43 WBC 0.1 L* RBC 2.77 L Hgb 8.7 L Hct 25.7 L RDW 15.9 H Plt Count 16 L* Lymphocytes # (Manual) ABG pH ABG pCO2 ABG pO2 ABG HCO3 ABG Total CO2 Sodium Potassium Carbon Dioxide BUN Creatinine Glucose POC Glucose (mg/dL) 161 H 167 H Calcium Total Bilirubin Troponin I Total Protein Albumin Lipase Crossmatch 03/26/20 03/26/20 03/26/20 03:43 06:53 12:04 WBC RBC Hgb Hct RDW Plt Count Lymphocytes # (Manual) ABG pH ABG pCO2 ABG pO2 ABG HCO3 ABG Total CO2 Sodium 131 L Potassium 3.4 L Carbon Dioxide 19 L BUN Creatinine Glucose 129 H POC Glucose (mg/dL) 141 H 177 H Calcium 8.2 L Total Bilirubin 1.4 H Troponin I Total Protein 5.5 L Albumin 2.7 L Lipase Crossmatch 03/26/20 03/27/20 03/27/20 17:26 04:20 04:20 WBC 0.2 L* RBC 2.82 L Hgb 8.6 L Hct 25.9 L RDW 15.6 H Plt Count 4 L* D Lymphocytes # (Manual) ABG pH ABG pCO2 ABG pO2 ABG HCO3 ABG Total CO2 Sodium 129 L Potassium Carbon Dioxide 20 L BUN Creatinine Glucose 102 H POC Glucose (mg/dL) 199 H Calcium Total Bilirubin Troponin I Total Protein Albumin Lipase Crossmatch 03/27/20 03/27/20 03/27/20 06:42 18:33 20:10 WBC RBC Hgb Hct RDW Plt Count Lymphocytes # (Manual) ABG pH ABG pCO2 ABG pO2 ABG HCO3 ABG Total CO2 Sodium Potassium Carbon Dioxide BUN Creatinine Glucose POC Glucose (mg/dL) 105 H 171 H 151 H Calcium Total Bilirubin Troponin I Total Protein Albumin Lipase Crossmatch 03/28/20 03/28/20 03/28/20 04:33 04:33 06:31 WBC 0.7 L* RBC 2.99 L Hgb 9.1 L Hct 28.2 L RDW 15.9 H Plt Count 35 L D Lymphocytes # (Manual) ABG pH ABG pCO2 ABG pO2 ABG HCO3 ABG Total CO2 Sodium 129 L Potassium Carbon Dioxide 15 L BUN 21 H Creatinine Glucose 132 H POC Glucose (mg/dL) 157 H Calcium Total Bilirubin Troponin I Total Protein Albumin Lipase Crossmatch 03/28/20 03/28/20 03/28/20 11:44 16:38 17:12 WBC RBC Hgb Hct RDW Plt Count Lymphocytes # (Manual) ABG pH 7.46 H ABG pCO2 22 L ABG pO2 72 L ABG HCO3 16 L ABG Total CO2 16 L Sodium Potassium Carbon Dioxide BUN Creatinine Glucose POC Glucose (mg/dL) 149 H 133 H Calcium Total Bilirubin Troponin I Total Protein Albumin Lipase Crossmatch 03/28/20 03/29/20 03/29/20 21:01 05:17 05:17 WBC 2.5 L RBC 3.10 L Hgb 9.5 L Hct 29.0 L RDW 15.9 H Plt Count 28 L Lymphocytes # (Manual) 0.28 L ABG pH ABG pCO2 ABG pO2 ABG HCO3 ABG Total CO2 Sodium 130 L Potassium Carbon Dioxide 15 L BUN 32 H Creatinine 1.34 H Glucose 141 H POC Glucose (mg/dL) 152 H Calcium Total Bilirubin Troponin I Total Protein Albumin Lipase Crossmatch 03/29/20 03/29/20 03/29/20 05:30 06:30 11:41 WBC RBC Hgb Hct RDW Plt Count Lymphocytes # (Manual) ABG pH ABG pCO2 23 L ABG pO2 82 L ABG HCO3 16 L ABG Total CO2 16 L Sodium Potassium Carbon Dioxide BUN Creatinine Glucose POC Glucose (mg/dL) 160 H 168 H Calcium Total Bilirubin Troponin I Total Protein Albumin Lipase Crossmatch 03/29/20 03/29/20 12:27 17:27 WBC RBC Hgb Hct RDW Plt Count Lymphocytes # (Manual) ABG pH ABG pCO2 ABG pO2 ABG HCO3 ABG Total CO2 Sodium Potassium Carbon Dioxide BUN Creatinine Glucose POC Glucose (mg/dL) 165 H 230 H Calcium Total Bilirubin Troponin I Total Protein Albumin Lipase Crossmatch Assessment and Plan Assessment: This is a 65-year-old female who has a history of stage IV lung cancer with metastatic brain lesions. The patient has become more unresponsive since admission on the and today her EEG does show indication for increased seizure tendency. On examination today there is notable facial twitching in the left corner of her face. The nurse was at the bedside and was able to witness this as well. Recommendations 1. Keppra IV 500 mg stat every 12 2. Follow-up EEG in the morning 3. Contact [facility] to obtain the results of the MRI of the brain her recent PET scan. I suspect there is progression of the metastatic brain lesions with increased intracranial pressure. Next line 4. Continue neuro checks every hour. There is any asymmetry of the pupils noted please obtain a stat computed tomography scan of the head as this patient has metastatic brain lesions could be involved with increased cerebral edema, increase and cranial pressure leading to increased risk for herniation. There is a small lesion noted back in Fe bruary in the cerebellum this was tiny but nevertheless over the last 90 days this lesion in the cerebellum could enlarge. Enlarging posterior fossa tumors can increase the risk for herniation. Next This patient's prognosis remains very poor. Neurology will follow closely. Please note that will not be neurology coverage this Thursday and Thursday. Thank you for this consultation Missy Mcgowan M.D. Board Certified in neurology and sleep medicine
--- NOTE | 2020-03-29 20:09 | P.PN ---
Subjective Progress Note Date: 03/29/20 Principal diagnosis: Lung Cancer on Treatment, Pancytopenia Patient seen in ICU today, her status has changed. She is not following commands, answering questions, and does not appear to be focusing. She was having an EEG and getting ready to go for CT brain. Although her WBC has improved her mental status appears declined. Neurology has been consulted to further assess mental status. Objective - Vital Signs Vital signs: Vital Signs Temp 96.5 F L 03/29/20 16:00 Pulse 108 H 03/29/20 19:00 Resp 18 03/29/20 19:00 BP 124/94 03/29/20 19:00 Pulse Ox 93 L 03/29/20 19:00 Intake & Output 03/29/20 03/29/20 03/30/20 06:59 18:59 06:59 Intake Total 240 1395 230 Output Total 1175 560 30 Balance -935 835 200 Weight 58.4 kg Intake: IV 240 1145 230 0.9 Normal Saline @ 20mL/ 240 160 hr as KVO Dextrose 5%-0.45% NaCl 1, 625 125 000 ml @ 125 mls/hr IV . Q8H24M [facility] with Sodium Bicarb (1 Meq/ml) 50 ml Rx#:[id number] Diltiazem 125 mg In 10 5 Sodium Chloride 0.9% 100 ml @ 5 MG/HR 5 mls/hr IV .Q24H [facility] Rx#:[id number] Potassium Chloride 10 meq 100 In Water For Injection 1 100ml.bag @ 100 mls/hr IVPB Q1H [facility] Rx#: [id number] Sodium Chloride 0.9% 250 250 ml @ 999 mls/hr IV .Q16M [facility] Rx#:[id number] levETIRAcetam IV 500 mg 100 In Sodium Chloride 0.9% 100 ml @ 400 mls/hr IVPB Q12HR [facility] Rx#:[id number] Intake, IV Titration 250 Amount Amiodarone 300 mg In 250 Dextrose 5% in Water 250 ml @ 0.5 MG/MIN 25 mls/hr IV .Q10H [facility] Rx#: [id number] Output: Urine 1175 560 30 Other: Voiding Method Indwelling Catheter Indwelling Catheter - Exam - Constitutional General appearance: average body habitus, not responding to questions or speaking Ears: bilateral: normal - Neck supple - Respiratory Respiratory: bilateral: CTA, diminished - Cardiovascular Rhythm: irregular Heart sounds: Irregular - Gastrointestinal General gastrointestinal: soft, tender - Neurologic Neurologic: CNII-XII intact - Musculoskeletal unable to assess - Psychiatric Psychiatric:flat affect - Labs CBC & Chem 7: 03/29/20 05:17 03/29/20 05:17 Labs: Abnormal Lab Results - Last 24 Hours (Table) 03/28/20 03/29/20 03/29/20 Range/Units 21:01 05:17 05:17 WBC 2.5 L (3.8-10.6) k/uL RBC 3.10 L (3.80-5.40) m/uL Hgb 9.5 L (11.4-16.0) gm/dL Hct 29.0 L (34.0-46.0) % RDW 15.9 H (11.5-15.5) % Plt Count 28 L (150-450) k/uL Lymphocytes # (Manual) 0.28 L (1.0-4.8) k/uL ABG pCO2 (35-45) mmHg ABG pO2 (83-108) mmHg ABG HCO3 (21-25) mmol/L ABG Total CO2 (19-24) mmol/L Sodium 130 L (137-145) mmol/L Carbon Dioxide 15 L (22-30) mmol/L BUN 32 H (7-17) mg/dL Creatinine 1.34 H (0.52-1.04) mg/dL Glucose 141 H (74-99) mg/dL POC Glucose (mg/dL) 152 H (75-99) mg/dL 03/29/20 03/29/20 03/29/20 Range/Units 05:30 06:30 11:41 WBC (3.8-10.6) k/uL RBC (3.80-5.40) m/uL Hgb (11.4-16.0) gm/dL Hct (34.0-46.0) % RDW (11.5-15.5) % Plt Count (150-450) k/uL Lymphocytes # (Manual) (1.0-4.8) k/uL ABG pCO2 23 L (35-45) mmHg ABG pO2 82 L (83-108) mmHg ABG HCO3 16 L (21-25) mmol/L ABG Total CO2 16 L (19-24) mmol/L Sodium (137-145) mmol/L Carbon Dioxide (22-30) mmol/L BUN (7-17) mg/dL Creatinine (0.52-1.04) mg/dL Glucose (74-99) mg/dL POC Glucose (mg/dL) 160 H 168 H (75-99) mg/dL 03/29/20 03/29/20 Range/Units 12:27 17:27 WBC (3.8-10.6) k/uL RBC (3.80-5.40) m/uL Hgb (11.4-16.0) gm/dL Hct (34.0-46.0) % RDW (11.5-15.5) % Plt Count (150-450) k/uL Lymphocytes # (Manual) (1.0-4.8) k/uL ABG pCO2 (35-45) mmHg ABG pO2 (83-108) mmHg ABG HCO3 (21-25) mmol/L ABG Total CO2 (19-24) mmol/L Sodium (137-145) mmol/L Carbon Dioxide (22-30) mmol/L BUN (7-17) mg/dL Creatinine (0.52-1.04) mg/dL Glucose (74-99) mg/dL POC Glucose (mg/dL) 165 H 230 H (75-99) mg/dL Microbiology - Last 24 Hours (Table) 03/24/20 22:32 Blood Culture - Preliminary Blood No Growth after 96 hours Assessment and Plan Plan: Assessment and Plan Assessment: Metastatic small cell lung cancer: Small Cell Lung Cancer Patient of Dr. Portillo - Status Post Cycle 4 of chemotherapy with Carboplatin, DOG SHOW JUDGE-16 and Tecentriq, no growth factor - Last treatment given 03/15/20 - Outpatient follow-up for continuing chemotherapy/immunotherapy Severe neutropenia: High risk of neutropenic fever/sepsis - Improving WBC 2.5 - currently on broad-spectrum antibiotics - Continue patient on G-CSF Abdominal Pain: - In the picture of neutropenia consider neutropenia colitis - Would not increase diet until abdominal pain improved and neutropenia reso lved Pancytopenia: Secondary to recent chemotherapy - WBC count 2.5, improving Continue Zarxio. - Zarxio 480mcg daily - Broad Spectrum Abx - Rec repeating barnes cultures with mental status changes - Transfuse Hemoglobin less then 7, plt less than 15K - Platlets 28K - Stable Diarrhea: - Prob neutropenic colitis/enteritis - Pt still with +ve exam features. 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
[2020-03-29 20:21] LABS: Glucose,Whole Blood 208 mg/dL (75-99)
[2020-03-29] MEDS: diphenhydrAMINE 25 MG CAP PO SCH (20:21)
[2020-03-29] MEDS: ACETAMINOPHEN TAB 500 MG TAB PO SCH (20:21)
[2020-03-29] MEDS ORDERED: levETIRAcetam IV 500 MG in SODIUM CHLORIDE 0.9% 100 ML IVPB SCH (21:00)
--- NOTE | 2020-03-29 22:26 | P.PN ---
Subjective Progress Note Date: 03/29/20 (Critical care time 35 minutes) Principal diagnosis: Paroxysmal atrial fibrillation Non-ST segment elevated NJ/demand ischemia Severe neutropenia due to postchemotherapy Thrombocytopenia Severe anemia Stage IV small cell lung cancer Elevated troponin End-stage COPD History of coronary artery disease 03/29/2020, patient seen and examined care plan discussed with the staff at length, patient progressive decline in mental status, has been more lethargic, and lysed week but however she remains on 2 L oxygen she has a component of metabolic acidosis low-dose bicarb drip is being given patient also given a bicarb, due to poor mental status a computed tomography scan of the head is performed which did show chronic changes no acute changes have been identified, neurology evaluated the patient put her on Keppra, obvious seizure-like activity however has been noted, patient has remains problem with atrial fibrillation with RVR requiring reinitiation of amiodarone drip along with Cardizem drip, patient has acute NJ and acute systolic heart failure ejection fraction is just 25%, patient will get a swallow evaluation again today and unable to swallow, white cell count is up to 2.5 now, hemoglobin remained stable 9.5, platelet count is stable as 28,000, arterial blood gas performed stat basis shows component of metabolic acidosis with hyperventilation which seems to have adequate ventilation and oxygenation, renal functions are up B and is 32 creatinine is 1.3 for GFR dipped down to 49, chest x-ray performed today continue show bilateral small effusions with atelectasis some improvement in x- ray related to pleural effusion however is noted, will ask IR to put a PICC line in the morning 03/28/2020, patient seen eval reexamined during the rounds overall generalized weakness present mild shortness of breath is present however no cough congestion is present, patient is awake and alert, on 2 L oxygen saturation is 94-96%, breathing is heavy, tachypnea is noted, patient has been in A. fib with RVR required amiodarone drip which has been tapered and DC'd now we'll recommend to put her on oral amiodarone pending cardiology recommendation, patient is still intermittently going back and forth in A. fib, hemodynamics stable, chest x-ray reviewed bilateral pleural effusion has been noted along with interstitial edema hold care for the Lasix 40 mg 1, patient has been transfused with the 2 units of platelet platelet count has improved, has been on Neupogen white cell count improved to 700 now, hemoglobin remained stable at 7.1 platelet is 35, bicarb is just 15 will do arterial blood gases patient may required bicarb replacement Mar 27 2020, patient seen and evaluated in ICU still short of breath while, patient is on 2 L oxygen awake and alert slightly anxious, patient will be given some Xanax also has received some Ativan for anxiety, denies any chest pain denies any cough or sputum production, complain of weakness and overall not feeling well, remains afebrile with stable hemodynamics, labs reviewed white cell count is slightly off of 0.2 hemoglobin stable at 8.6, platelets continued to trend down latest is 4000 only, patient is to be transfused with 2 unit of platelets, cultures so far has been negative, patient cultures have been negative remains on broad-spectrum antibiotic and steroids 03/26/2020, patient seen and evaluated examined during the rounds he is she is visibly short of breath, but no overwhelming shortness breath is present denies any cough or sputum production denies any chest pain, patient had a short run of atrial fibrillation with RVR spontaneously appeared to have converted to sinus rhythm, patient to have a sinus arrhythmia, she is on 2 L oxygen breathing, still short of breath, patient remains on broad-spectrum antibiotics pending culture results and reports reviewed, so far urine and blood has been negative, white cell count is still low 0.1 with absolute neutropenia hemoglobin trending down but stable, platelet count have come down to 16,000 as well, no obvious signs of bleeding is present, cardiovascular services has been following, patient has been started on low-dose metoprolol, unfortunately other interventions couldn't be done including her anticoagulation or aspirin, This is a 65-year-old female who was seen eval reexamined in ICU, patient sees Dr. Guo for primary care activity, she admitted into the hospital with ongoing nausea vomiting she was found to have severe anemia, her history is significant for stage IV lung cancer, also has significant history of COPD coronary artery disease history of bypass surgery as well as stent placement, she has ongoing chronic shortness of breath patient is started having nausea vomiting for 1 day, he misses appeared to be very dark, came into the hospital for further evaluation in the emergency department she was noted to have significant pancytopenia hemoglobin is only 6.4 patient admitted into the hospital for further evaluation with GI as well as oncology on consult, her chest x-ray showed a pulmonary nodule, review of the data revealed that patient has a small cell lung cancer, patient has received chemotherapy with carboplatin and HAZ TECH-16 it appears to be 4 cycle of chemotherapy was given mid March, patient has been found to have severe neutropenia likely related to postchemotherapy, patient currently have been started on Xanax 0 along with broad-spectrum antibiotics pending cultures are being obtained, and she is been placed on Solu- Medrol as well as PPI, currently she is on cephapirin Estefani her WBC is 0.2, after transfusion of 2 packed RBC hemoglobin improved to 9.8, platelets are 21, her troches are going up latest is 0.9, coronary virus is negative, Objective - Vital Signs Vital signs: Vital Signs Temp 96.5 F L 03/29/20 16:00 Pulse 101 H 03/29/20 20:00 Resp 18 03/29/20 19:00 BP 124/94 03/29/20 19:00 Pulse Ox 97 03/29/20 19:45 Intake & Output 03/29/20 03/29/20 03/30/20 06:59 18:59 06:59 Intake Total 240 1395 230 Output Total 1175 560 30 Balance -935 835 200 Weight 58.4 kg Intake: IV 240 1145 230 0.9 Normal Saline @ 20mL/ 240 160 hr as KVO Dextrose 5%-0.45% NaCl 1, 625 125 000 ml @ 125 mls/hr IV . Q8H24M [facility] with Sodium Bicarb (1 Meq/ml) 50 ml Rx#:[id number] Diltiazem 125 mg In 10 5 Sodium Chloride 0.9% 100 ml @ 5 MG/HR 5 mls/hr IV .Q24H [facility] Rx#:[id number] Potassium Chloride 10 meq 100 In Water For Injection 1 100ml.bag @ 100 mls/hr IVPB Q1H [facility] Rx#: [id number] Sodium Chloride 0.9% 250 250 ml @ 999 mls/hr IV .Q16M ONE Rx#:[id number] levETIRAcetam IV 500 mg 100 In Sodium Chloride 0.9% 100 ml @ 400 mls/hr IVPB Q12HR [facility] Rx#:[id number] Intake, IV Titration 250 Amount Amiodarone 300 mg In 250 Dextrose 5% in Water 250 ml @ 0.5 MG/MIN 25 mls/hr IV .Q10H [facility] Rx#: [id number] Output: Urine 1175 560 30 Other: Voiding Method Indwelling Catheter Indwelling Catheter - Exam - Constitutional General appearance: average body habitus, cooperative, disheveled, ill appearing - EENT Eyes: EOMI, PERRLA Ears: bilateral: normal - Neck Neck: normal ROM Carotids: bilateral: upstroke normal Thyroid: bilateral: normal size - Respiratory Respiratory: bilateral: diminished, bilateral basal crackles - Cardiovascular Rhythm: regular Heart sounds: normal: S1, S2 - Gastrointestinal General gastrointestinal: normal bowel sounds - Neurologic Neurologic: CNII-XII intact - Musculoskeletal Musculoskeletal: gait normal, generalized weakness, strength equal bilaterally - Psychiatric Psychiatric: A&O x's 3, appropriate affect, intact judgment & insight - Labs CBC & Chem 7: 03/29/20 05:17 03/29/20 05:17 Labs: Abnormal Lab Results - Last 24 Hours (Table) 03/29/20 03/29/20 03/29/20 Range/Units 05:17 05:17 05:30 WBC 2.5 L (3.8-10.6) k/uL RBC 3.10 L (3.80-5.40) m/uL Hgb 9.5 L (11.4-16.0) gm/dL Hct 29.0 L (34.0-46.0) % RDW 15.9 H (11.5-15.5) % Plt Count 28 L (150-450) k/uL Lymphocytes # (Manual) 0.28 L (1.0-4.8) k/uL ABG pCO2 23 L (35-45) mmHg ABG pO2 82 L (83-108) mmHg ABG HCO3 16 L (21-25) mmol/L ABG Total CO2 16 L (19-24) mmol/L Sodium 130 L (137-145) mmol/L Carbon Dioxide 15 L (22-30) mmol/L BUN 32 H (7-17) mg/dL Creatinine 1.34 H (0.52-1.04) mg/dL Glucose 141 H (74-99) mg/dL POC Glucose (mg/dL) (75-99) mg/dL 03/29/20 03/29/2003/29/20 Range/Units 06:30 11:41 12:27 WBC (3.8-10.6) k/uL RBC (3.80-5.40) m/uL Hgb (11.4-16.0) gm/dL Hct (34.0-46.0) % RDW (11.5-15.5) % Plt Count (150-450) k/uL Lymphocytes # (Manual) (1.0-4.8) k/uL ABG pCO2 (35-45) mmHg ABG pO2 (83-108) mmHg ABG HCO3 (21-25) mmol/L ABG Total CO2 (19-24) mmol/L Sodium (137-145) mmol/L Carbon Dioxide (22-30) mmol/L BUN (7-17) mg/dL Creatinine (0.52-1.04) mg/dL Glucose (74-99) mg/dL POC Glucose (mg/dL) 160 H 168 H 165 H (75-99) mg/dL 03/29/20 03/29/20 Range/Units 17:27 20:19 WBC (3.8-10.6) k/uL RBC (3.80-5.40) m/uL Hgb (11.4-16.0) gm/dL Hct (34.0-46.0) % RDW (11.5-15.5) % Plt Count (150-450) k/uL Lymphocytes # (Manual) (1.0-4.8) k/uL ABG pCO2 (35-45) mmHg ABG pO2 (83-108) mmHg ABG HCO3 (21-25) mmol/L ABG Total CO2 (19-24) mmol/L Sodium (137-145) mmol/L Carbon Dioxide (22-30) mmol/L BUN (7-17) mg/dL Creatinine (0.52-1.04) mg/dL Glucose (74-99) mg/dL POC Glucose (mg/dL) 230 H 208 H (75-99) mg/dL Microbiology - Last 24 Hours (Table) 03/24/20 22:32 Blood Culture - Preliminary Blood No Growth after 96 hours Assessment and Plan Assessment: Altered mental status/encephalopathy likely metabolic related to multifactorial process neuro workup is in progress A. fib with RVR and acute on chronic systolic heart failure Metabolic acidosis Fluid overload bilateral pleural effusion Severe thrombocytopenia Paroxysmal atrial fibrillation Non-ST segment elevated NJ Severe neutropenia due to postchemotherapy Stage IV small cell lung cancer Anemia thrombocytopenia and neutropenia Elevated troponin End-stage COPD History of coronary artery disease Plan: Gentle rehydration with bicarbonate PICC line by interventional radiology in a.m. as patient will require multiple ports for the infusion Rate control with IV amiodarone along with IV Cardizem and Lopressor, patient is not a candidate for anticoagulation Repeat speech and swallow evaluation in the morning Monitor electrolytes very closely and replace it Broad-spectrum antibiotics Supplemental oxygen Status post transfusion with 2 packed RBC trend hemoglobin Keep platelets over 10,000 trend platelets Zarxio is being continued for severe neutropenia postchemotherapy Continue neutropenic precautions Peptic ulcer disease prophylaxis Bronchodilators CHEST x-ray reviewed, Ordered labs and chest x-ray in the morning Continue antianxiety agents and Other recommendations pending plan of care as per clinical response of the patient Time with Patient: Greater than 30
--- NOTE | 2020-03-29 22:56 | PN ---
PROGRESS NOTE DATE OF SERVICE: 03/29/2020 REASON FOR FOLLOWUP: Febrile neutropenia. INTERVAL HISTORY: The patient is currently afebrile. The patient is hemodynamically stable, not on any pressor support. She is currently on nasal cannula oxygen. No vomiting or any diarrhea has been reported. The patient overall remains poor and lethargic and did not provide any history. PHYSICAL EXAMINATION: Blood pressure 121/98 with a pulse of 109, temperature 96.5. She is 95% on 2 L nasal cannula. General description is a middle-aged female lying in bed in no distress. RESPIRATORY SYSTEM: Unlabored breathing. Clear to auscultation anteriorly. HEART: S1, S2. Regular rate and rhythm. ABDOMEN: Soft. No tenderness. LABS: Hemoglobin 9.5, white count 2.5, BUN of 32, creatinine 1.34. DIAGNOSTIC IMPRESSION AND PLAN: Patient with febrile neutropenia in this patient who did have stage IV lung cancer. The patient seems to be slightly lethargic but hemodynamically stable and fever has resolved. Covered with cefepime; to continue and monitor her clinical course closely. MMODL / IJN: [id number] /
[2020-03-30] MEDS: methylPREDNISolone SOD SUCCI 40 MG/ML 1 ML VIAL IV SCH ×2 (00:08→09:46)
[2020-03-30] MEDS: CEFEPIME 2 GM in SODIUM CHLORIDE 0.9% 100 ML IVPB SCH ×2 (00:08→13:07)
[2020-03-30 04:47] VITALS: TEMP 97.7
[2020-03-30 05:08] LABS: INR 1.6 (<1.2); Prothrombin Time 15.8 sec (9.0-12.0)
[2020-03-30 05:23] LABS: Calcium 8.7 mg/dL (8.4-10.2)
[2020-03-30 05:26] LABS: Anisocytosis Slight; HGB 9.2 gm/dL (11.4-16.0); MCH 31.6 pg (25.0-35.0); MCV 92.9 fL (80.0-100.0); Mean Platelet Volume 11.2; RBC 2.91 m/uL (3.80-5.40); WBC 4.6 k/uL (3.8-10.6)
[2020-03-30 05:52] LABS: Platelet Count 20 k/uL (150-450)
[2020-03-30] MEDS: POTASSIUM CHLORIDE 10 MEQ in WATER FOR INJECTION 1 100ML.BAG IVPB SCH ×4 (06:17→12:01)
[2020-03-30 06:42] LABS: Glucose,Whole Blood 185 mg/dL (75-99)
[2020-03-30] MEDS: INSULIN ASPART (NovoLOG) 100 UNIT/ML VIAL SQ SCH (06:49)
[2020-03-30] MEDS: AMIODARONE 300 MG in DEXTROSE 5% IN WATER 250 ML IV SCH ×2 (06:50)
[2020-03-30 07:16] LABS: Nucleated Red Blood Cells 1 /100 WBC (0-0); Total Cells Counted 200
[2020-03-30 07:20] LABS: Large Platelets Present
[2020-03-30] MEDS: IPRATROPIUM-ALBUTEROL 3 ML NEB INHALATION SCH ×2 (07:24→12:18)
--- NOTE | 2020-03-30 08:04 | XR ---
EXAMINATION TYPE: XR chest 1V portable DATE OF EXAM: 03/30/2020 COMPARISON: 03/29/2020 HISTORY: Shortness of breath TECHNIQUE: Single frontal view of the chest is obtained. FINDINGS: Bilateral consolidation pleural effusion. Mediport catheter seen and there is postoperativ e changes. No pneumothorax. Diffuse osteopenia. IMPRESSION: Stable diffuse pleural-parenchymal changes correlate for CHF versus diffuse pneumonia.
[2020-03-30 08:17] LABS: Band Neutrophils % 15 %; Metamyelocytes # (M) 0.09 k/uL (0); Metamyelocytes % 2 %; Monocytes # (M) 0.37 k/uL (0-1.0); Myelocytes # (M) 0.05 k/uL (0); Myelocytes % 1 %; Neutrophils % (M) 63 %
[2020-03-30 08:18] LABS: Poikilocytosis (M) Present
--- NOTE | 2020-03-30 08:39 | P.PN ---
Subjective Progress Note Date: 03/30/20 Principal diagnosis: paroxysmal atrial fibrillation This is a 65-year-old -Citizen Of [place] female patient with unfortunate with metastatic lung cancer as well as multiple comorbid conditions was admitted to the hospital with a change in mental status likely to be multifactorial. We involved in the care of the patient because she went into atrial fibrillation with RVR. The patient was seen today, March 302019. She does have significant for change in mental status. Hemodynamically she is stable and not on any vasopressors. She is currently on Cardizem as well as amiodarone are on IV. She is nothing by mouth and, swallow any pills. She, be on oral anticoagulation because of severe thrombocytopenia. I would suggest continue the patient on the current medications including amiodarone as well as Cardizem and continue holding any anticoagulation at this point. She is in atrial fibrillation with controlled heart rate. Objective - Vital Signs Vital signs: Vital Signs Temp 97.7 F 03/30/20 04:00 Pulse 107 H 03/30/20 07:42 Resp 13 03/30/20 07:00 BP 122/88 03/30/20 07:00 Pulse Ox 96 03/30/20 07:27 Intake & Output 03/29/20 03/30/20 03/30/20 18:59 06:59 18:59 Intake Total 1395 1327.917 80 Output Total 560 450 35 Balance 835 877.917 45 Weight 58.3 kg Intake: IV 1145 1110 80 0.9 Normal Saline @ 20mL/ 160 hr as KVO Dextrose 5%-0.45% NaCl 1, 625 950 75 000 ml @ 125 mls/hr IV . Q8H24M [facility] with Sodium Bicarb (1 Meq/ml) 50 ml Rx#:[id number] Diltiazem 125 mg In 10 60 5 Sodium Chloride 0.9% 100 ml @ 5 MG/HR 5 mls/hr IV .Q24H [facility] Rx#:[id number] Potassium Chloride 10 meq 100 In Water For Injection 1 100ml.bag @ 100 mls/hr IVPB Q1H [facility] Rx#: [id number] Sodium Chloride 0.9% 250 250 ml @ 999 mls/hr IV .Q16M ONE Rx#:[id number] levETIRAcetam IV 500 mg 100 In Sodium Chloride 0.9% 100 ml @ 400 mls/hr IVPB Q12HR [facility] Rx#:[id number] Intake, IV Titration 250 217.917 Amount Amiodarone 300 mg In 250 Dextrose 5% in Water 250 ml @ 0.5 MG/MIN 25 mls/hr IV .Q10H [facility] Rx#: [id number] Amiodarone 300 mg In 217.917 Dextrose 5% in Water 250 ml @ 0.5 MG/MIN 25 mls/hr IV .Q10H [facility] Rx#: [id number] Output: Urine 560 450 35 Other: Voiding Method Indwelling Catheter Indwelling Catheter - Constitutional General appearance: Present: no acute distress - Respiratory Respiratory: bilateral: diminished - Cardiovascular Rhythm: irregularly irregular Heart sounds: normal: S1, S2 - Labs CBC & Chem 7: 03/30/20 04:40 03/30/20 04:40 Labs: Abnormal Lab Results - Last 24 Hours (Table) 03/29/20 03/29/20 03/29/20 Range/Units 05:17 11:41 12:27 RBC (3.80-5.40) m/uL Hgb (11.4-16.0) gm/dL Hct (34.0-46.0) % RDW (11.5-15.5) % Plt Count (150-450) k/uL Lymphocytes # (Manual) 0.28 L (1.0-4.8) k/uL Metamyelocytes # (Man) (0) k/uL Myelocytes # (Manual) (0) k/uL Nucleated RBCs (0-0) /100 WBC PT (9.0-12.0) sec INR (<1.2) Sodium (137-145) mmol/L Potassium (3.5-5.1) mmol/L Carbon Dioxide (22-30) mmol/L BUN (7-17) mg/dL Creatinine (0.52-1.04) mg/dL Glucose (74-99) mg/dL POC Glucose (mg/dL) 168 H 165 H (75-99) mg/dL 03/29/20 03/29/20 03/30/20 Range/Units 17:27 20:19 04:40 RBC 2.91 L (3.80-5.40) m/uL Hgb 9.2 L (11.4-16.0) gm/dL Hct 27.0 L (34.0-46.0) % RDW 16.0 H (11.5-15.5) % Plt Count 20 L (150-450) k/uL Lymphocytes # (Manual) 0.60 L (1.0-4.8) k/uL Metamyelocytes # (Man) 0.09 H (0) k/uL Myelocytes # (Manual) 0.05 H (0) k/uL Nucleated RBCs 1 H (0-0) /100 WBC PT (9.0-12.0) sec INR (<1.2) Sodium (137-145) mmol/L Potassium (3.5-5.1) mmol/L Carbon Dioxide (22-30) mmol/L BUN (7-17) mg/dL Creatinine (0.52-1.04) mg/dL Glucose (74-99) mg/dL POC Glucose (mg/dL) 230 H 208 H (75-99) mg/dL 03/30/20 03/30/20 03/30/20 Range/Units 04:40 04:40 06:41 RBC (3.80-5.40) m/uL Hgb (11.4-16.0) gm/dL Hct (34.0-46.0) % RDW (11.5-15.5) % Plt Count (150-450) k/uL Lymphocytes # (Manual) (1.0-4.8) k/uL Metamyelocytes # (Man) (0) k/uL Myelocytes # (Manual) (0) k/uL Nucleated RBCs (0-0) /100 WBC PT 15.8 H (9.0-12.0) sec INR 1.6 H (<1.2) Sodium 130 L (137-145) mmol/L Potassium 3.0 L (3.5-5.1) mmol/L Carbon Dioxide 18 L (22-30) mmol/L BUN 33 H (7-17) mg/dL Creatinine 1.17 H (0.52-1.04) mg/dL Glucose 154 H (74-99) mg/dL POC Glucose (mg/dL) 185 H (75-99) mg/dL Microbiology - Last 24 Hours (Table) 03/29/20 19:50 Sputum Culture - Preliminary Sputum 03/24/20 22:32 Blood Culture - Preliminary Blood No Growth after 120 hours Assessment and Plan Assessment: assessment #1 change in mental status #2 metastatic lung cancer #3 severe thrombocytopenia #4 paroxysmal atrial fibrillation #5 multiple comorbid conditions Plan #1 continue amiodarone IV and Cardizem IV #2 hold any oral anticoagulation #3 follow-up with the patient
[2020-03-30] MEDS: METOPROLOL TARTRATE 25 MG TAB PO SCH (08:57)
[2020-03-30] MEDS: LORATADINE 10 MG TAB PO SCH (08:57)
[2020-03-30] MEDS: METOPROLOL TARTRATE 12.5 MG TAB PO SCH ×2 (08:57→15:33)
[2020-03-30 09:43] VITALS: BMI 23.5
[2020-03-30] MEDS: levETIRAcetam IV 500 MG in SODIUM CHLORIDE 0.9% 100 ML IVPB SCH (09:45)
[2020-03-30] MEDS: ESCITALOPRAM 10 MG TAB PO SCH (09:46)
[2020-03-30] MEDS: PANTOPRAZOLE 40 MG/10 ML VIAL IVP SCH (09:46)
[2020-03-30] MEDS: FILGRASTIM-SNDZ 480 MCG/0.8 ML SYRINGE SQ SCH (09:48)
[2020-03-30] MEDS: NYSTATIN 100,000 UNIT/ML SUSP 500,000 UNIT/5 ML CUP PO SCH ×3 (09:48→15:33)
--- NOTE | 2020-03-30 10:42 | P.PN ---
Subjective Progress Note Date: 03/30/20 Principal diagnosis: Lung Cancer on Treatment, Pancytopenia Spoke to Nursing, Dr. Francois, patients and Dr. Schmidt. The big picture of the situation is her incurable and likely progressive cancer. Given she has already had whole brain radiation if she has further progressive disease to brain this will not be able to be re-radiated per radiation oncology discussion today. Patient's understands and would like to talk with hospice. He would like her home with hospice if possible. overall prognosis poor. Objective - Vital Signs Vital signs: Vital Signs Temp 97.7 F 03/30/20 04:00 Pulse 106 H 03/30/20 10:00 Resp 19 03/30/20 10:00 BP 120/105 03/30/20 10:00 Pulse Ox 97 03/30/20 10:00 Intake & Output 03/29/20 03/30/20 03/30/20 18:59 06:59 18:59 Intake Total 1395 1327.917 620 Output Total 560 450 125 Balance 835 877.917 495 Weight 58.3 kg 58.3 kg Intake: IV 1145 1110 620 0.9 Normal Saline @ 20mL/ 160 hr as KVO Dextrose 5%-0.45% NaCl 1, 625 950 300 000 ml @ 125 mls/hr IV . Q8H24M [facility] with Sodium Bicarb (1 Meq/ml) 50 ml Rx#:[id number] Diltiazem 125 mg In 10 60 20 Sodium Chloride 0.9% 100 ml @ 5 MG/HR 5 mls/hr IV .Q24H [facility] Rx#:[id number] Potassium Chloride 10 meq 100 In Water For Injection 1 100ml.bag @ 100 mls/hr IVPB Q1H [facility] Rx#: [id number] Potassium Chloride 10 meq 200 In Water For Injection 1 100ml.bag @ 100 mls/hr IVPB Q1HR [facility] Rx#: [id number] Sodium Chloride 0.9% 250 250 ml @ 999 mls/hr IV .Q16M ONE Rx#:[id number] levETIRAcetam IV 500 mg 100 100 In Sodium Chloride 0.9% 100 ml @ 400 mls/hr IVPB Q12HR [facility] Rx#:[id number] Intake, IV Titration 250 217.917 Amount Amiodarone 300 mg In 250 Dextrose 5% in Water 250 ml @ 0.5 MG/MIN 25 mls/hr IV .Q10H [facility] Rx#: [id number] Amiodarone 300 mg In 217.917 Dextrose 5% in Water 250 ml @ 0.5 MG/MIN 25 mls/hr IV .Q10H [facility] Rx#: [id number] Output: Urine 560 450 125 Other: Voiding Method Indwelling Catheter Indwelling Catheter - Exam - Constitutional General appearance: average body habitus, not responding to questions or speaking Ears: bilateral: normal - Neck supple - Respiratory Respiratory: bilateral: CTA, diminished - Cardiovascular Rhythm: irregular Heart sounds: Irregular - Gastrointestinal General gastrointestinal: soft, tender - Neurologic Neurologic: CNII-XII intact - Musculoskeletal unable to assess - Psychiatric Psychiatric:flat affect - Labs CBC & Chem 7: 03/30/20 04:40 03/30/20 04:40 Labs: Abnormal Lab Results - Last 24 Hours (Table) 03/29/20 03/29/20 03/29/20 Range/Units 11:41 12:27 17:27 RBC (3.80-5.40) m/uL Hgb (11.4-16.0) gm/dL Hct (34.0-46.0) % RDW (11.5-15.5) % Plt Count (150-450) k/uL Lymphocytes # (Manual) (1.0-4.8) k/uL Metamyelocytes # (Man) (0) k/uL Myelocytes # (Manual) (0) k/uL Nucleated RBCs (0-0) /100 WBC PT (9.0-12.0) sec INR (<1.2) Sodium (137-145) mmol/L Potassium (3.5-5.1) mmol/L Carbon Dioxide (22-30) mmol/L BUN (7-17) mg/dL Creatinine (0.52-1.04) mg/dL Glucose (74-99) mg/dL POC Glucose (mg/dL) 168 H 165 H 230 H (75-99) mg/dL 03/29/20 03/30/20 03/30/20 Range/Units 20:19 04:40 04:40 RBC 2.91 L (3.80-5.40) m/uL Hgb 9.2 L (11.4-16.0) gm/dL Hct 27.0 L (34.0-46.0) % RDW 16.0 H (11.5-15.5) % Plt Count 20 L (150-450) k/uL Lymphocytes # (Manual) 0.60 L (1.0-4.8) k/uL Metamyelocytes # (Man) 0.09 H (0) k/uL Myelocytes # (Manual) 0.05 H (0) k/uL Nucleated RBCs 1 H (0-0) /100 WBC PT (9.0-12.0) sec INR (<1.2) Sodium 130 L (137-145) mmol/L Potassium 3.0 L (3.5-5.1) mmol/L Carbon Dioxide 18 L (22-30) mmol/L BUN 33 H (7-17) mg/dL Creatinine 1.17 H (0.52-1.04) mg/dL Glucose 154 H (74-99) mg/dL POC Glucose (mg/dL) 208 H (75-99) mg/dL 03/30/20 03/30/20 Range/Units 04:40 06:41 RBC (3.80-5.40) m/uL Hgb (11.4-16.0) gm/dL Hct (34.0-46.0) % RDW (11.5-15.5) % Plt Count (150-450) k/uL Lymphocytes # (Manual) (1.0-4.8) k/uL Metamyelocytes # (Man) (0) k/uL Myelocytes # (Manual) (0) k/uL Nucleated RBCs (0-0) /100 WBC PT 15.8 H (9.0-12.0) sec INR 1.6 H (<1.2) Sodium (137-145) mmol/L Potassium (3.5-5.1) mmol/L Carbon Dioxide (22-30) mmol/L BUN (7-17) mg/dL Creatinine (0.52-1.04) mg/dL Glucose (74-99) mg/dL POC Glucose (mg/dL) 185 H (75-99) mg/dL Microbiology - Last 24 Hours (Table) 03/29/20 19:50 Gram Stain - Preliminary Sputum Sputum Culture - Preliminary 03/24/20 22:32 Blood Culture - Preliminary Blood No Growth after 120 hours Assessment and Plan Plan: Assessment and Plan Assessment: Metastatic small cell lung cancer: Small Cell Lung Cancer Patient of Dr. Portillo - Status Post Cycle 4 of chemotherapy with Carboplatin, [employer]-16 and Tecentriq, no growth factor - Last treatment given 03/15/20 - Outpatient follow-up for continuing chemotherapy/immunotherapy Severe neutropenia: High risk of neutropenic fever/sepsis - Improving WBC 2.5 - currently on broad-spectrum antibiotics - Continue patient on G-CSF Abdominal Pain: - In the picture of neutropenia consider neutropenia colitis - Would not increase diet until abdominal pain improved and neutropenia resolved Pancytopenia: Secondary to recent chemotherapy - WBC count 2.5, improving Continue Zarxio. - Zarxio 480mcg daily - Broad Spectrum Abx - Rec repeating barnes cultures with mental status changes - Transfuse Hemoglobin less then 7, plt less than 15K Diarrhea: - Prob neutropenic colitis/enteritis - Pt still with +ve exam features. 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 Patient status DNR. Discussed with on the goals of care as comfort Physician Attest: I have completed the full history and physical I agree with above dictated, dictated as scribe
--- NOTE | 2020-03-30 10:55 | P.PN ---
Subjective Progress Note Date: 03/30/20 (Critical care time 35 minutes) Principal diagnosis: Paroxysmal atrial fibrillation Non-ST segment elevated MT/demand ischemia Severe neutropenia due to postchemotherapy Thrombocytopenia Severe anemia Stage IV small cell lung cancer Elevated troponin End-stage COPD History of coronary artery disease 03/30/2020, patient seen eval examined during the rounds remains lethargic unresponsive, oxygenation however is stable, gag is poor, mental status continued decline, oral pills and medicine are hold as she cannot swallow well she continued to go to bronchodilators along with the antiarrhythmic agent with amiodarone and Cardizem, patient remains on bicarb drip, hemodynamic status stable on 2 L nasal cannula few crackles in the base, not taking any by mouth, white cell count is up to 4600 hemoglobin remained stable 9.2, platelet count stable 20,000, potassium is 3.0 sodium is 1:30, BUN/creatinine slightly improved 33 and 1.17, chest x-ray stable small pleural effusion and congestive heart failure likely changes are present, neurology and oncology have been following detailed discussion with the family has been done, family is considering hospice she is already DO NOT RESUSCITATE not to be intubated she remains high risk for aspiration and aspiration related complication and problem, PICC line cannot be done due to above reasons 03/29/2020, patient seen and examined care plan discussed with the staff at length, patient progressive decline in mental status, has been more lethargic, and lysed week but however she remains on 2 L oxygen she has a component of metabolic acidosis low-dose bicarb drip is being given patient also given a bicarb, due to poor mental status a computed tomography scan of the head is performed which did show chronic changes no acute changes have been identified, neurology evaluated the patient put her on Keppra, obvious seizure-like activity however has been noted, patient has remains problem with atrial fibrillation wit h RVR requiring reinitiation of amiodarone drip along with Cardizem drip, patient has acute MT and acute systolic heart failure ejection fraction is just 25%, patient will get a swallow evaluation again today and unable to swallow, white cell count is up to 2.5 now, hemoglobin remained stable 9.5, platelet count is stable as 28,000, arterial blood gas performed stat basis shows component of metabolic acidosis with hyperventilation which seems to have adequate ventilation and oxygenation, renal functions are up B and is 32 creatinine is 1.3 for GFR dipped down to 49, chest x-ray performed today continue show bilateral small effusions with atelectasis some improvement in x- ray related to pleural effusion however is noted, will ask IR to put a PICC line in the morning 03/28/2020, patient seen eval reexamined during the rounds overall generalized weakness present mild shortness of breath is present however no cough congestion is present, patient is awake and alert, on 2 L oxygen saturation is 94-96%, breathing is heavy, tachypnea is noted, patient has been in A. fib with RVR required amiodarone drip which has been tapered and DC'd now we'll recommend to put her on oral amiodarone pending cardiology recommendation, patient is still intermittently going back and forth in A. fib, hemodynamics stable, chest x-ray reviewed bilateral pleural effusion has been noted along with interstitial edema hold care for the Lasix 40 mg 1, patient has been transfused with the 2 units of platelet platelet count has improved, has been on Neupogen white cell count improved to 700 now, hemoglobin remained stable at 7.1 platelet is 35, bicarb is just 15 will do arterial blood gases patient may required bicarb replacement Mar 27 2020, patient seen and evaluated in ICU still short of breath while, patient is on 2 L oxygen awake and alert slightly anxious, patient will be given some Xanax also has received some Ativan for anxiety, denies any chest pain denies any cough or sputum production, complain of weakness and overall not feeling well, remains afebrile with stable hemodynamics, labs reviewed white cell count is slightly off of 0.2 hemoglobin stable at 8.6, platelets continued to trend down latest is 4000 only, patient is to be transfused with 2 unit of platelets, cultures so far has been negative, patient cultures have been negative remains on broad-spectrum antibiotic and steroids 03/26/2020, patient seen and evaluated examined during the rounds he is she is visibly short of breath, but no overwhelming shortness breath is present denies any cough or sputum production denies any chest pain, patient had a short run of atrial fibrillation with RVR spontaneously appeared to have converted to sinus rhythm, patient to have a sinus arrhythmia, she is on 2 L oxygen breathing, still short of breath, patient remains on broad-spectrum antibiotics pending culture results and reports reviewed, so far urine and blood has been negative, white cell count is still low 0.1 with absolute neutropenia hemoglobin trending down but stable, platelet count have come down to 16,000 as well, no obvious signs of bleeding is present, cardiovascular services has been following, patient has been started on low-dose metoprolol, unfortunately other interventions couldn't be done including her anticoagulation or aspirin, This is a 65-year-old female who was seen eval reexamined in ICU, patient sees Dr. Guo for primary care activity, she admitted into the hospital with ongoing nausea vomiting she was found to have severe anemia, her history is significant for stage IV lung cancer, also has significant history of COPD coronary artery disease history of bypass surgery as well as stent placement, she has ongoing chronic shortness of breath patient is started having nausea vom iting for 1 day, he misses appeared to be very dark, came into the hospital for further evaluation in the emergency department she was noted to have significant pancytopenia hemoglobin is only 6.4 patient admitted into the hospital for further evaluation with GI as well as oncology on consult, her chest x-ray showed a pulmonary nodule, review of the data revealed that patient has a small cell lung cancer, patient has received chemotherapy with carboplatin and [employer]-16 it appears to be 4 cycle of chemotherapy was given mid March, patient has been found to have severe neutropenia likely related to postchemotherapy, patient currently have been started on Xanax 0 along with broad-spectrum antibiotics pending cultures are being obtained, and she is been placed on Solu-Medrol as well as PPI, currently she is on cephapirin Estefani her WBC is 0.2, after transfusion of 2 packed RBC hemoglobin improved to 9.8, platelets are 21, her troches are going up latest is 0.9, coronary virus is negative, Objective - Vital Signs Vital signs: Vital Signs Temp 97.7 F 03/30/20 04:00 Pulse 106 H 03/30/20 10:00 Resp 19 03/30/20 10:00 BP 120/105 03/30/20 10:00 Pulse Ox 97 03/30/20 10:00 Intake & Output 03/29/20 03/30/20 03/30/20 18:59 06:59 18:59 Intake Total 1395 1327.917 620 Output Total 560 450 125 Balance 835 877.917 495 Weight 58.3 kg 58.3 kg Intake: IV 1145 1110 620 0.9 Normal Saline @ 20mL/ 160 hr as KVO Dextrose 5%-0.45% NaCl 1, 625 950 300 000 ml @ 125 mls/hr IV . Q8H24M [facility] with Sodium Bicarb (1 Meq/ml) 50 ml Rx#:[id number] Diltiazem 125 mg In 10 60 20 Sodium Chloride 0.9% 100 ml @ 5 MG/HR 5 mls/hr IV .Q24H [facility] Rx#:[id number] Potassium Chloride 10 meq 100 In Water For Injection 1 100ml.bag @ 100 mls/hr IVPB Q1H [facility] Rx#: [id number] Potassium Chloride 10 meq 200 In Water For Injection 1 100ml.bag @ 100 mls/hr IVPB Q1HR [facility] Rx#: [id number] Sodium Chloride 0.9% 250 250 ml @ 999 mls/hr IV .Q16M [facility] Rx#:[id number] levETIRAcetam IV 500 mg 100 100 In Sodium Chloride 0.9% 100 ml @ 400 mls/hr IVPB Q12HR [facility] Rx#:[id number] Intake, IV Titration 250 217.917 Amount Amiodarone 300 mg In 250 Dextrose 5% in Water 250 ml @ 0.5 MG/MIN 25 mls/hr IV .Q10H [facility] Rx#: [id number] Amiodarone 300 mg In 217.917 Dextrose 5% in Water 250 ml @ 0.5 MG/MIN 25 mls/hr IV .Q10H [facility] Rx#: [id number] Output: Urine 560 450 125 Other: Voiding Method Indwelling Catheter Indwelling Catheter - Exam - Constitutional General appearance: average body habitus, very lethargic somnolent, disheveled, ill appearing - EENT Eyes: EOMI, PERRLA Ears: bilateral: normal - Neck Neck: normal ROM Carotids: bilateral: upstroke normal Thyroid: bilateral: normal size - Respiratory Respiratory: bilateral: diminished, bilateral basal crackles - Cardiovascular Rhythm: regular Heart sounds: normal: S1, S2 - Gastrointestinal General gastrointestinal: normal bowel sounds - Neurologic Neurologic: CNII-XII intact - Musculoskeletal Musculoskeletal: generalized weakness, strength equal bilaterally - Psychiatric Psychiatric: Weak somnolent and lethargic cannot swallow - Labs CBC & Chem 7: 03/30/20 04:40 03/30/20 04:40 Labs: Abnormal Lab Results - Last 24 Hours (Table) 03/29/20 03/29/20 03/29/20 Range/Units 11:41 12:27 17:27 RBC (3.80-5.40) m/uL Hgb (11.4-16.0) gm/dL Hct (34.0-46.0) % RDW (11.5-15.5) % Plt Count (150-450) k/uL Lymphocytes # (Manual) (1.0-4.8) k/uL Metamyelocytes # (Man) (0) k/uL Myelocytes # (Manual) (0) k/uL Nucleated RBCs (0-0) /100 WBC PT (9.0-12.0) sec INR (<1.2) Sodium (137-145) mmol/L Potassium (3.5-5.1) mmol/L Carbon Dioxide (22-30) mmol/L BUN (7-17) mg/dL Creatinine (0.52-1.04) mg/dL Glucose (74-99) mg/dL POC Glucose (mg/dL) 168 H 165 H 230 H (75-99) mg/dL 03/29/20 03/30/20 03/30/20 Range/Units 20:19 04:40 04:40 RBC 2.91 L (3.80-5.40) m/uL Hgb 9.2 L (11.4-16.0) gm/dL Hct 27.0 L (34.0-46.0) % RDW 16.0 H (11.5-15.5) % Plt Count 20 L (150-450) k/uL Lymphocytes # (Manual) 0.60 L (1.0-4.8) k/uL Metamyelocytes # (Man) 0.09 H (0) k/uL Myelocytes # (Manual) 0.05 H (0) k/uL Nucleated RBCs 1 H (0-0) /100 WBC PT (9.0-12.0) sec INR (<1.2) Sodium 130 L (137-145) mmol/L Potassium 3.0 L (3.5-5.1) mmol/L Carbon Dioxide 18 L (22-30) mmol/L BUN 33 H (7-17) mg/dL Creatinine 1.17 H (0.52-1.04) mg/dL Glucose 154 H (74-99) mg/dL POC Glucose (mg/dL) 208 H (75-99) mg/dL 03/30/20 03/30/20 Range/Units 04:40 06:41 RBC (3.80-5.40) m/uL Hgb (11.4-16.0) gm/dL Hct (34.0-46.0) % RDW (11.5-15.5) % Plt Count (150-450) k/uL Lymphocytes # (Manual) (1.0-4.8) k/uL Metamyelocytes # (Man) (0) k/uL Myelocytes # (Manual) (0) k/uL Nucleated RBCs (0-0) /100 WBC PT 15.8 H (9.0-12.0) sec INR 1.6 H (<1.2) Sodium (137-145) mmol/L Potassium (3.5-5.1) mmol/L Carbon Dioxide (22-30) mmol/L BUN (7-17) mg/dL Creatinine (0.52-1.04) mg/dL Glucose (74-99) mg/dL POC Glucose (mg/dL) 185 H (75-99) mg/dL Microbiology - Last 24 Hours (Table) 03/29/20 19:50 Gram Stain - Preliminary Sputum Sputum Culture - Preliminary 03/24/20 22:32 Blood Culture - Preliminary Blood No Growth after 120 hours Assessment and Plan Assessment: Altered mental status/encephalopathy likely metabolic related to multifactorial process neuro workup is in progress, A. fib with RVR and acute on chronic systolic heart failure Metabolic acidosis Fluid overload bilateral pleural effusion Severe thrombocytopenia Paroxysmal atrial fibrillation Non-ST segment elevated MT Severe neutropenia due to postchemotherapy Stage IV small cell lung cancer Anemia thrombocytopenia and neutropenia Elevated troponin End-stage COPD History of coronary artery disease Family is considering hospice she is DO NOT RESUSCITATE now Plan: Gentle rehydration with bicarbonate Rate control with IV amiodarone along with IV Cardizem and Lopressor, patient is not a candidate for anticoagulation Repeat speech and swallow evaluation results and reports reviewed Monitor electrolytes very closely and replace it Broad-spectrum antibiotics Supplemental oxygen Status post transfusion with 2 packed RBC trend hemoglobin Keep platelets over 10,000 trend platelets Zarxio is being continued for severe neutropenia postchemotherapy Continue neutropenic precautions Peptic ulcer disease prophylaxis Bronchodilators CHEST x-ray reviewed, Ordered labs and chest x-ray in the morning Continue antianxiety agents and Other recommendations pending plan of care as per clinical response of the patient Awaiting further advice from the family in case if patient is made hospice we'll follow as needed and on when necessary basis Time with Patient: Greater than 30
[2020-03-30 10:58] LABS: Magnesium 1.8 mg/dL (1.6-2.3)
[2020-03-30 11:44] LABS: Glucose,Whole Blood 162 mg/dL (75-99)
[2020-03-30] MEDS ORDERED: INSULIN ASPART (NovoLOG) 100 UNIT/ML VIAL SQ SCH (12:00)
--- NOTE | 2020-03-30 14:10 | PN ---
PROGRESS NOTE DATE OF SERVICE: 03/30/2020 REASON FOR FOLLOWUP: Febrile neutropenia. INTERVAL HISTORY: The patient remains to be lethargic. She does open eyes to name but did not answer any questions. Oral examination is poor, no vomiting or diarrhea has been reported. PHYSICAL EXAMINATION: Blood pressure 115/85 with a pulse of 103, temperature is 97.7. She is 96% on room air. General description is a middle-aged female lying in bed in no distress. RESPIRATORY SYSTEM: Unlabored breathing, clear to auscultation anteriorly. HEART: S1, S2. Regular rate and rhythm. ABDOMEN: Soft, no tenderness. EXTREMITIES: No edema of the feet. LABS: Hemoglobin 9.8, white count 4.6. BUN of 33, creatinine 1.17. Blood, urine have been negative. DIAGNOSTIC IMPRESSION AND PLAN: Patient with febrile neutropenia with apparently GI symptom on presentation. Subsequent pulmonary concern for possible pneumonia, patient is covered with cefepime. However, the family is leaning towards the hospice. care which may be appropriate for her. Antibiotic can be safely discontinued. Continue supportive care. MMODL / IJN: [id number] /
[2020-03-30] MEDS: DEXTROSE 5%-0.45% NACL 1,000 ML with SODIUM BICARB (1 MEQ/ML) 50 ML IV SCH ×4 (15:32→15:34)
[2020-03-30 16:23] VITALS: BP 147/94; PULSE 68; RESP 21
--- NOTE | 2020-03-30 23:03 | P.DS ---
Providers Date of admission: 03/24/20 17:03 Expected date of discharge: 03/30/20 Attending physician: Pastor Schmidt Consults: 03/24/20 17:02 Consult Physician Urgent Consulting Provider: Caroline Amos Consult Reason/Comments: upper gi bleed, EKG changes Do you want consulting provider notified?: Yes Consult Physician Urgent Consulting Provider: Darshana Hernandez Consult Reason/Comments: hematemesis, pancytopenia, upper gi bleed Do you want consulting provider notified?: Yes 03/24/20 20:16 Consult Physician Routine Consulting Provider: Marcio Melton Consult Reason/Comments: malignancy Do you want consulting provider notified?: Yes 03/24/20 21:45 Consult Physician Routine Consulting Provider: Anderson Ponce Consult Reason/Comments: ICU Management Do you want consulting provider notified?: Already Contacted 03/25/20 15:01 Consult Physician Routine Consulting Provider: Rohit Santoyo Consult Reason/Comments: neutropenic sepsis, covid?? Do you want consulting provider notified?: Yes 03/29/20 14:18 Consult Physician Urgent Consulting Provider: Missy Mcgowan Consult Reason/Comments: increasingly lethargic Do you want consulting provider notified?: Yes 03/29/20 14:47 Consult Physician Urgent Consulting Provider: Serge Pan Consult Reason/Comments: afib RVR, resistant to amio Do you want consulting provider notified?: Already Contacted Primary care physician: [facility] Course: Presenting complaint GI bleed Interval history: This is a patient was admitted with GI bleed with acute blood loss anemia with chemotherapy-induced gastritis Patient also had severe neutropenia and sepsis on broad-spectrum IV antibiotics. Also significant anxiety depression. Also present and IV amiodarone. Per oncology patient is felt to have incurable progressive cancer metastatic including that of the brain. Today-: Ashlie, Nurse practitioner from oncology calm this morning. She had communicated to patient's and overall poor prognosis was discussed. Decided to proceed with hospice. I did spoke to the dependency case manager and nursing staff. Arrangements were being made for patient finally to go home with hospice. Patient become more lethargic. Heidy answering questions. Hospice nurse was spoken to. Discussion and discharge planning more than 35 minutes Consultants: Dr. Melton from oncology Dr. Santoyo from ID Dr. Domenico Ponce from pulmonary Dr. Pan from cardiology Dr. Nadine Hernandez from GI On examination: VITAL SIGNS: 97.7, 68, 21, 147/94, 97% on 2 L GENERAL APPEARANCE: Laying in bed, more lethargic HEENT: Normal external appearance of nose and ear. Oral cavity dry EYES: Pupils equal. Conjunctiva normal. NECK: JVD not raised. Mass not palpable. RESPIRATORY: Respiratory effort increased. Lungs-decreased breath sounds. CARDIOVASCULAR: Heart sounds irregular, some edema. ABDOMEN: Soft. Liver and spleen not palpable. No tenderness. No mass palpable. PSYCHIATRY: Depressed INVESTIGATIONS, reviewed in the clinical context: White count 2.5 hemoglobin 9.5 platelets 28 sodium 1:30 bun 32 creatinine 1.34 bicarbonate 15 Previous testing: White count 0.2 hemoglobin 8.5 platelets 20 Troponin I 0.067, 0.919 COVID-19 PCR-not detected Urine culture and blood culture-both negative Assessment: -Severe anemia with 1 episode of coffee-ground emesis felt to be most likely chemotherapy-induced gastritis -Acute non-Q-wave myocardial infarction -Advanced COPD in an ex-smoker -Coronary artery disease with a prior history of stent and a coronary bypass in 2003 -Metastatic small cell lung cancer status post 4 cycles of chemotherapy last treatment on March 15 and immunotherapy -Severe pancytopenia secondary to chemotherapy responding toZarxio -Possible neutropenic colitis -Possible adrenal insufficiency secondary to immunotherapy -Metabolic acidosis-worsening -Paroxysmal atrial fibrillation currently in rapid ventricular rate on IV amiodarone -Metabolic encephalopathy possibly from acute renal failure and other medical problems-new diagnosis -Acute kidney injury possibly prerenal with creatinine going from 0.78 up to 1.34-new diagnosis - Disposition: Home with hospice Patient Condition at Discharge: Stable Plan - Discharge Summary Discharge Rx Participant: No New Discharge Prescriptions: Discontinued Aspirin 81 mg PO DAILY Dexamethasone [Decadron] 4 mg PO BID Prochlorperazine [Compazine] 10 mg PO Q6H PRN PRN Reason: Nausea And Vomiting Acetaminophen/Diphenhydramine [Tylenol Pm Ex-Strength Caplet] 1 tab PO HS Tetracycline HCl 500 mg PO Q12H Lisinopril [Zestril] 10 mg PO DAILY Dronabinol 5 mg PO HS Follow up Appointment(s)/Referral(s): Paul Guo DO [Primary Care Provider] - 1-2 days Anderson Ponce MD [STAFF PHYSICIAN] - 1 Week Discharge Disposition: HOME WITH HOSPICE
== END 2020-03-30 16:35 | disposition hospice, home (50) | DRG 871 ==
LOC: EC 14:30 → 2SICU 17:03
PROVIDERS: ADMIT Hospitalist; ATTEND Hospitalist
PROC: 30233R1 Transfusion of Nonautologous Platelets into Peripheral Vein, Percutaneous Approach (ICD-10-PCS; principal; 2020-03-24)
PROC: 30233N1 Transfusion of Nonautologous Red Blood Cells into Peripheral Vein, Percutaneous Approach (ICD-10-PCS; 2020-03-24)
DX: A41.9 Sepsis, unspecified organism (principal); D61.810 Antineoplastic chemotherapy induced pancytopenia; G93.41 Metabolic encephalopathy; I21.4 Non-ST elevation (NSTEMI) myocardial infarction; I50.23 Acute on chronic systolic (congestive) heart failure; K29.71 Gastritis, unspecified, with bleeding; C34.90 Malignant neoplasm of unspecified part of unspecified bronchus or lung; C79.31 Secondary malignant neoplasm of brain; D62 Acute posthemorrhagic anemia; E27.40 Unspecified adrenocortical insufficiency; E87.1 Hypo-osmolality and hyponatremia; E87.2 Acidosis; J44.1 Chronic obstructive pulmonary disease with (acute) exacerbation; J98.11 Atelectasis; N17.9 Acute kidney failure, unspecified; R65.20 Severe sepsis without septic shock; D70.3 Neutropenia due to infection; I11.0 Hypertensive heart disease with heart failure; E87.6 Hypokalemia; Z11.59 Encounter for screening for other viral diseases; I25.10 Atherosclerotic heart disease of native coronary artery without angina pectoris; I48.0 Paroxysmal atrial fibrillation; T45.1X5A Adverse effect of antineoplastic and immunosuppressive drugs, initial encounter; K52.89 Other specified noninfective gastroenteritis and colitis; M19.90 Unspecified osteoarthritis, unspecified site; R26.9 Unspecified abnormalities of gait and mobility; R49.0 Dysphonia; Z79.82 Long term (current) use of aspirin; Z79.899 Other long term (current) drug therapy; Z87.891 Personal history of nicotine dependence; Z95.1 Presence of aortocoronary bypass graft; Z95.5 Presence of coronary angioplasty implant and graft; Z82.49 Family history of ischemic heart disease and other diseases of the circulatory system
CPT/HCPCS: 36410; 36415; 36430; 36600; 70450; 71045; 71046; 71250; 74150; 76937; 80048; 80053; 82272; 82533; 82805; 83605; 83690; 83735; 84100; 84132; 84484; 85025; 85384; 85610; 85730; 86850; 86900; 86901; 86920; 87040; 87070; 87086; 87205; 87635; 93005; 93306; 94640; 95816; 96374; 99285